=== PATIENT | female | born 1930 | race Caucasian/White ===

== ENCOUNTER 2017-02-11 07:33 | Inpatient (IN) | payer MEDICARE, BC ==
[~2017-02-11] VITALS: Ht 160 cm; Wt 62.4 kg
[~2017-02-11 07:33] MED LIST: ASPI81 PO; CIPR500T2 PO; ENAL20TA81 PO; ENOX30P SQ; LEVO.075 PO; PERC5TAB12 PO; PREG100 PO; REST15CA PO; TOPI25CA PO; TRAM50TA PO; VENTAER INH
[2017-02-11 07:42] VITALS: BP 109/58; PULSE 80; RESP 16; TEMP 98.6
[2017-02-11 07:57] VITALS: RESP 16; O2SAT 94
[2017-02-11] MEDS ORDERED: MORPHINE SULFATE 4 MG/ML INJ IV PUSH ONE (08:00)
[2017-02-11] MEDS: SODIUM CHLORIDE 0.9% FLUSH 10 ML FLUSH IVF PRN (08:08)
[2017-02-11 08:15] LABS: AUTOMATED NEUTROPHIL # 7.5 TH/MM3 (1.8-7.7); BASOPHIL # 0.1 TH/MM3 (0-0.2); BASOPHIL % 0.6 % (0.0-2.0); EOSINOPHIL # 0.3 TH/MM3 (0-0.4); EOSINOPHIL % 3.7 % (0.0-4.0); HEMATOCRIT 35.2 % (35.0-46.0); LYMPH % 11.3 % (9.0-44.0); LYMPHOCYTE # 1.1 TH/MM3 (1.0-4.8); MEAN CELL VOLUME 93.3 FL (80.0-100.0); MEAN CORPUSCULAR HGB CONC 34.3 % (32.0-36.0); MONO % 5.6 % (0.0-8.0); NEUT % 78.8 % (16.0-70.0); PLATELET COUNT 229 TH/MM3 (150-450); RED BLOOD COUNT 3.77 MIL/MM3 (4.00-5.30); RED CELL DISTRIBUTION WIDTH 17.7 % (11.6-17.2); WHITE BLOOD COUNT 9.5 TH/MM3 (4.0-11.0)
[2017-02-11 08:18] LABS: HEMO FLAGS AUTO DIFF
[2017-02-11 08:23] LABS: ANION GAP 7 MEQ/L (5-15); AST (GOT) 21 U/L (15-37); BLOOD UREA NITROGEN 14 MG/DL (7-18); CHLORIDE 101 MEQ/L (98-107); GLOMERULAR FILTRATION RATE 62 ML/MIN (>89); SODIUM (NA) 135 MEQ/L (136-145)
[2017-02-11 08:25] LABS: PROTHROMBIN TIME - PATIENT 11.3 SEC (9.8-11.6)
[2017-02-11 08:26] LABS: ALKALINE PHOSPHATASE 83 U/L (45-117); ALT (GPT) 24 U/L (10-53); TOTAL BILIRUBIN ADULT 0.3 MG/DL (0.2-1.0)
[2017-02-11 09:05] LABS: BANDS 26 % (0-6); EOSINOPHILS 3 % (0-4); NEUTROPHIL # MANUAL DIFF 8.3 TH/MM3 (1.8-7.7); PLATELET ESTIMATE SMEAR NORMAL (NORMAL); PLATELET MORPHOLOGY NORMAL (NORMAL); POLYS (SEG NEUTROPHILS) 61 % (16-70); SCAN/DIFF FINAL DIFF MANUAL; WBC DIFF SAMPLE 100
[2017-02-11 09:12] VITALS: BP 105/50; PULSE 79; RESP 16; O2SAT 94
--- NOTE | 2017-02-11 09:20 | RADRPT ---
EXAM DATE/TIME: 02/11/2017 09:01 [facility] COMPARISON: CT THORAX W CONTRAST, November 14, 2013, 16:17. CHEST PA & LAT, November 14, 2013, 13:29. INDICATIONS : Shortness of breath. MEDICAL HISTORY : Chronic obstructive pulmonary disease. Hypertension Asthma SURGICAL HISTORY : None. ENCOUNTER: Initial ACUITY: 1 day PAIN SCORE: 0/10 LOCATION: Bilateral chest FINDINGS: Single AP view of the chest demonstrates a normal-sized cardiac silhouette with calcification of the aorta. There are coarse interstitial opacities bilaterally. No definite effusion, consolidation, or p neumothorax is visualized. Bones and soft tissues demonstrate no acute finding. CONCLUSION: Coarse interstitial opacities bilaterally, increased from the prior study from 2013 but otherwise of uncertain etiology. Otherwise, no acute finding is identified. If symptoms persist consider of chest CT for further evaluation. Champ Junior MD on February 11, 2017 at 9:15 Board Certified Radiologist. This report was verified electronically.
--- NOTE | 2017-02-11 09:28 | RADRPT ---
EXAM DATE/TIME: 02/11/2017 08:53 [facility] COMPARISON: No previous studies available for comparison. INDICATIONS : Right femur pain, fall. MEDICAL HISTORY : Arthritis. SURGICAL HISTORY : None. ENCOUNTER: Initial ACUITY: 1 day PAIN SCORE: 10/10 LOCATION: Right proximal femur FINDINGS: AP and crosstable lateral views of the right femur were obtained and demonstrate a mildly comminuted intertrochanteric fracture with mild medial angulation of the distal femoral component. Lesser tubero sity is fractured displaced approximately 1 cm. There are degenerative changes in the right hip joint with superior joint space loss and mild hypertrophic change. The mid and distal femur are intact. So ft tissue swelling of the proximal femur. There is deformity of the left superior pubic rami with are as of sclerosis which appear chronic. There is diffuse osteopenia. CONCLUSION: 1. Right intertrochanteric fracture. 2. More chronic appearing deformity of the superior pubic rami. Willard Matamoros MD on February 11, 2017 at 9:24 Board Certified Radiologist. This report was verified electronically.
--- NOTE | 2017-02-11 09:30 | RADRPT ---
EXAM DATE/TIME: 02/11/2017 08:51 [facility] COMPARISON: No previous studies available for comparison. INDICATIONS : Right hip pain, fall. MEDICAL HISTORY : Arthritis. Pelvic fracture SURGICAL HISTORY : SI screws, ORIF pelvis ENCOUNTER: Initial ACUITY: 1 day PAIN SCORE: 10/10 LOCATION: Right proximal hip FINDINGS: AP and crosstable lateral views of the right hip were obtained as well as an AP view the pelvis. demo nstrating mildly comminuted intertrochanteric fracture. The distal femoral component is angulated med ially and the lesser trochanteric fragment is displaced medially approximately 1 cm. There is diffuse osteopenia and there are degenerative changes in the right hip. There are chronic fracture deformiti es involving superior pubic rami bilaterally. There are remote postsurgical changes with surgical scr ew transversing the left sacroiliac joint. There is screw plate fixation devices along the upper left ilium. CONCLUSION: 1. Mildly comminuted right intertrochanteric fracture. 2. Old fracture deformities of the pubic rami. Willard Matamoros MD on February 11, 2017 at 9:26 Board Certified Radiologist. This report was verified electronically.
--- NOTE | 2017-02-11 09:48 | PD ---
HPI Chief Complaint: Hip Injury Time Seen by Provider: 07:39 Travel History International Travel<30 days: No Contact w/Intl Traveler<30days: No Traveled to known affect area: No History of Present Illness HPI Is an 86-year-old woman who presents to the emergency department complaining of pain in the right hip after slip and fall. She slipped on an area rug. She otherwise has been feeling well. She is a history of previous pelvic fractures of the lateral laceration after she fell in 2013 down the stairs. She had a complex pelvic fractures sounds like an open book fracture. She also recent pneumonia and was discharged from the hospital 3 weeks ago. She otherwise had been feeling generally well before this. She has no pain anywhere else. Denies hitting her head. She is not on blood thinners. History Past Medical History Narrative Medical Asthma/COPD Hypertension A. fib Hypothyroidism History of pelvic fracture or bladder laceration 2013 LMP: post menopausal Menopausal: Yes Social History Alcohol Use: Yes (RED WINE 4 OZ every other day) Tobacco Use: No Allergies-Medications (Allergen,Severity, Reaction): Coded Allergies: Adhesives (Verified Allergy, Severe, skin irritation, 06/22/14) Phenobarbital (Verified Allergy, Severe, VOMITING, 06/22/14) Codeine (Verified Allergy, Intermediate, Nausea/Vomiting, 06/22/14) Uncoded Allergies: SOME NARCOTICS (Allergy, Unknown, 07/04/08) Reported Meds & Prescriptions Reported Meds & Active Scripts Active Percocet 5-325 mg (Oxycodone/Acetaminophen) Oxycodone 5/325 Acetaminophen Tab 1 Tab PO Q4H PRN Ciprofloxacin HCl (Ciprofloxacin) 500 Mg Tab 500 Mg PO Q12 7 Days Reported Lovenox (Enoxaparin Sodium) 30 Mg/0.3 Ml Inj 30 Mg SQ BID UNGRADUATED PREFILLED SYRINGE Aspirin 81 Mg Tab 81 Mg PO DAILY Topiramate 25 Mg Cap 25 Mg PO BID Ventolin Hfa (Albuterol Sulfate) 18 Gm Aero 2 Puff INH Q4HPRN * SHAKE WELL BEFORE USE * Tramadol Hcl (Tramadol HCl) 50 Mg Tab 100 Mg PO TIDPRN Lyrica (Pregabalin) 100 Mg Cap 75 Mg PO TID Restoril (Temazepam) 15 Mg Cap 15 Mg PO HS Vasotec (Enalapril Maleate) 20 Mg Tab 20 Mg PO BID Synthroid (Levothyroxine Sodium) 75 Mcg Tab 75 Mcg PO DAILY Review of Systems Except as stated in HPI: all other systems reviewed are Neg Physical Exam Narrative GENERAL: Well-appearing 86-year-old woman, no acute distress. SKIN: Focused skin assessment warm/dry. HEAD: Atraumatic. Normocephalic. EYES: Pupils equal and round. No scleral icterus. No injection or drainage. ENT: No nasal bleeding or discharge. Mucous membranes pink and moist. NECK: Trachea midline. No JVD. CARDIOVASCULAR: Regular rate and rhythm. No murmur appreciated. RESPIRATORY: No accessory muscle use. Clear to auscultation. Breath sounds equal bilaterally. GASTROINTESTINAL: Abdomen soft, non-tender, nondistended. Hepatic and splenic margins not palpable. MUSCULOSKELETAL: No obvious deformities. She holds her right hip a little bit externally rotated. She has pain with any attempt at range of motion of the hip including internal/external rotation. She has no pain or tenderness about the knee. She is no pain about the thigh. She is good pulses. No other evidence of injury. NEUROLOGICAL: Awake and alert. No obvious cranial nerve deficits. Motor grossly within normal limits. Normal speech. PSYCHIATRIC: Appropriate mood and affect; insight and judgment normal. Data Data Last Documented VS Vital Signs Date Time Temp Pulse Resp B/P Pulse Ox O2 Delivery O2 Flow Rate FiO2 02/11/17 09:12 79 16 105/50 94 02/11/17 07:51 Room Air 02/11/17 07:42 98.6 Orders Electrocardiogram (02/11/17 07:49) Complete Blood Count With Diff (02/11/17 07:49) Comprehensive Metabolic Panel (02/11/17 07:49) Prothrombin Time / Inr (Pt) (02/11/17 07:49) Act Partial Throm Time (Ptt) (02/11/17 07:49) Urinalysis - C+S If Indicated (02/11/17 07:49) Type And Screen (02/11/17 07:49) Chest, Single Ap (02/11/17 07:49) Femur (Ap & Lat/2vws) (02/11/17 07:49) Hip, Uni(Ap&Lat) W Ap Pelvis (02/11/17 07:49) Iv Access Insert/Monitor (02/11/17 07:49) Urinary Catheter Insert/Apply (02/11/17 07:49) Oximetry (02/11/17 07:49) Ecg Monitoring (02/11/17 07:49) Morphine Inj (Morphine Inj) (02/11/17 08:00) Sodium Chloride 0.9% Flush (Ns Flush) (02/11/17 08:00) Diet Npo (02/11/17 Breakfast) Admit Order (Ed Use Only) (02/11/17 ) Labs Laboratory Tests Test 02/11/17 07:57 White Blood Count 9.5 TH/MM3 Red Blood Count 3.77 MIL/MM3 Hemoglobin 12.1 GM/DL Hematocrit 35.2 % Mean Corpuscular Volume 93.3 FL Mean Corpuscular Hemoglobin 32.0 PG Mean Corpuscular Hemoglobin 34.3 % Concent Red Cell Distribution Width 17.7 % Platelet Count 229 TH/MM3 Mean Platelet Volume 7.7 FL Neutrophils (%) (Auto) 78.8 % Lymphocytes (%) (Auto) 11.3 % Monocytes (%) (Auto) 5.6 % Eosinophils (%) (Auto) 3.7 % Basophils (%) (Auto) 0.6 % Neutrophils # (Auto) 7.5 TH/MM3 Lymphocytes # (Auto) 1.1 TH/MM3 Monocytes # (Auto) 0.5 TH/MM3 Eosinophils # (Auto) 0.3 TH/MM3 Basophils # (Auto) 0.1 TH/MM3 CBC Comment AUTO DIFF Differential Total Cells 100 Counted Neutrophils % (Manual) 61 % Band Neutrophils % 26 % Lymphocytes % 8 % Monocytes % 2 % Eosinophils % 3 % Neutrophils # (Manual) 8.3 TH/MM3 Differential Comment FINAL DIFF MANUAL Platelet Estimate NORMAL Platelet Morphology Comment NORMAL Prothrombin Time 11.3 SEC Prothromb Time International 1.0 RATIO Ratio Activated Partial 28.0 SEC Thromboplast Time Sodium Level 135 MEQ/L Potassium Level 4.0 MEQ/L Chloride Level 101 MEQ/L Carbon Dioxide Level 27.0 MEQ/L Anion Gap 7 MEQ/L Blood Urea Nitrogen 14 MG/DL Creatinine 0.87 MG/DL Estimat Glomerular Filtration 62 ML/MIN Rate Random Glucose 118 MG/DL Calcium Level 7.8 MG/DL Total Bilirubin 0.3 MG/DL Aspartate Amino Transf 21 U/L (AST/SGOT) Alanine Aminotransferase 24 U/L (ALT/SGPT) Alkaline Phosphatase 83 U/L Total Protein 5.6 GM/DL Albumin 2.7 GM/DL Blood Type A NEGATIVE Antibody Screen NEGATIVE MDM Medical Decision Making Medical Screen Exam Complete: Yes Emergency Medical Condition: Yes Interpretation(s) LABS: CBC remarkable for bandemia. CMP is unremarkable. Coags are unremarkable. Chest x-ray: Coarse interstitial opacities bilaterally. Increased from prior study but of uncertain etiology. Differential Diagnosis Hip fracture, femur fracture, pelvic fracture, occult head injury, other Narrative Course Medical decision making This an 86 old woman who presents to the emergency department complaint of right hip pain after fall. X-ray show approximately femur fracture. She looks otherwise well. I spoke with Dr. Swan, with orthopedics. We'll plan or later today. We will admit to medicine. Diagnosis Primary Impression: Closed right hip fracture Iker Gómez MD Feb 11, 2017 09:48
[2017-02-11] MEDS ORDERED: LACTATED RINGER'S 1000 ML INJ 1,000 ML IV ONE (09:50)
[2017-02-11] MEDS ORDERED: ONDANSETRON HCL 4 MG/2 ML VIAL IV PUSH ONE (09:50)
[2017-02-11] MEDS ORDERED: PROPOFOL 200 MG/20 ML AMP IV ONE (09:50)
[2017-02-11] MEDS ORDERED: PHENYLEPH/NS 1000 MCG/10 ML SYR IV ONE (09:50)
[2017-02-11 10:52] LABS: BACTERIA, URINE OCC /hpf; BLOOD, URINE NEG (NEG); COMMENT (UR) CATH-CULTURE IND; CULTURE IF INDICATED CATH CULTURE IND; GLUCOSE,URINE NEG (NEG); KETONE, URINE NEG (NEG); NITRITE,URINE POS (NEG); PH, URINE 7.5 (5.0-8.5); URINE COLOR YELLOW (YELLW/STRAW)
[2017-02-11] MEDS ORDERED: TOPA25TA8 PO (10:59)
[2017-02-11] MEDS ORDERED: tam (10:59)
[2017-02-11] MEDS ORDERED: TRAM50TA PO (10:59)
[2017-02-11] MEDS ORDERED: TEMA15CA PO (10:59)
[2017-02-11] MEDS ORDERED: PREG25 PO (10:59)
[2017-02-11] MEDS ORDERED: ENAL2.5T PO (10:59)
[2017-02-11] MEDS ORDERED: MONT4CHW4 CHEW (10:59)
[2017-02-11] MEDS ORDERED: MONT4CHW2 PO (10:59)
[2017-02-11] MEDS ORDERED: ALBUAER3 INH (10:59)
[2017-02-11] MEDS ORDERED: ADVI200C5 PO (11:00)
[2017-02-11] MEDS ORDERED: SODITAB PO (11:00)
[2017-02-11 11:17] VITALS: BP 101/58; PULSE 78; O2SAT 96
[2017-02-11] MEDS ORDERED: ALBUTEROL SULFATE 90 MCG/ACT HFA 18 GM INHALER INH PRN (11:45)
[2017-02-11] MEDS ORDERED: DEXT 5%-NACL 0.45% 1000 ML INJ 1,000 ML IV SCH (11:45)
[2017-02-11] MEDS ORDERED: MORPHINE SULFATE 4 MG/ML INJ IV PUSH PRN ×2 (11:45→19:45)
[2017-02-11] MEDS ORDERED: ONDANSETRON HCL 4 MG/2 ML VIAL IV PUSH PRN (11:45)
[2017-02-11] MEDS: cefTRIAXone INJ 1,000 MG in SODIUM CHLORIDE 0.9% INJ 100 ML IV SCH (12:56)
--- NOTE | 2017-02-11 13:25 | EKG ---
Date Performed: 02/11/2017 Time Performed: 07:52:34 PTAGE: 86 years EKG: Sinus rhythm POSSIBLE LEFT ATRIAL ENLARGEMENT INFERIOR MYOCARDIAL INFARCTION ABNORMAL ECG PREVIOUS TRACING : 06/22/2014 21.03 No significant change from previous tracing noted. DOCTOR: Shemar Flores Interpretating Date/Time 02/11/2017 13:22:33
[2017-02-11 15:20] VITALS: BP 124/65; PULSE 81; RESP 16; O2SAT 96
--- NOTE | 2017-02-11 18:15 | HHI.PR ---
Objective Objective Results - Vital Signs Date Time Temp Pulse Resp B/P Pulse Ox O2 Delivery O2 Flow Rate FiO2 02/11/17 15:20 81 16 124/65 96 Room Air 02/11/17 11:30 80 16 92 Nasal Cannula 2 02/11/17 11:17 78 101/58 96 Room Air 02/11/17 09:12 79 16 105/50 94 02/11/17 09:11 16 02/11/17 07:57 16 94 02/11/17 07:51 80 94 Room Air 02/11/17 07:42 98.6 80 16 109/58 I/O 02/10/17 02/10/17 02/10/17 02/11/17 02/11/17 02/11/17 07:00 15:00 23:00 07:00 15:00 23:00 Intake Total 200 ml Output Total 700 ml Balance -500 ml Intake IV Total 200 ml Output Urine Total 700 ml Result Diagram: 02/11/17 0757 02/11/17 0757 Other Results Laboratory Tests Test 02/11/17 02/11/17 07:57 10:15 White Blood Count 9.5 Red Blood Count 3.77 Hemoglobin 12.1 Hematocrit 35.2 Mean Corpuscular Volume 93.3 Mean Corpuscular Hemoglobin 32.0 Mean Corpuscular Hemoglobin 34.3 Concent Red Cell Distribution Width 17.7 Platelet Count 229 Mean Platelet Volume 7.7 Neutrophils (%) (Auto) 78.8 Lymphocytes (%) (Auto) 11.3 Monocytes (%) (Auto) 5.6 Eosinophils (%) (Auto) 3.7 Basophils (%) (Auto) 0.6 Neutrophils # (Auto) 7.5 Lymphocytes # (Auto) 1.1 Monocytes # (Auto) 0.5 Eosinophils # (Auto) 0.3 Basophils # (Auto) 0.1 CBC Comment AUTO DIFF Differential Total Cells 100 Counted Neutrophils % (Manual) 61 Band Neutrophils % 26 Lymphocytes % 8 Monocytes % 2 Eosinophils % 3 Neutrophils # (Manual) 8.3 Differential Comment FINAL DIFF MANUAL Platelet Estimate NORMAL Platelet Morphology Comment NORMAL Prothrombin Time 11.3 Prothromb Time International 1.0 Ratio Activated Partial 28.0 Thromboplast Time Sodium Level 135 Potassium Level 4.0 Chloride Level 101 Carbon Dioxide Level 27.0 Anion Gap 7 Blood Urea Nitrogen 14 Creatinine 0.87 Estimat Glomerular Filtration 62 Rate Random Glucose 118 Calcium Level 7.8 Total Bilirubin 0.3 Aspartate Amino Transf 21 (AST/SGOT) Alanine Aminotransferase 24 (ALT/SGPT) Alkaline Phosphatase 83 Total Protein 5.6 Albumin 2.7 Blood Type A NEGATIVE Antibody Screen NEGATIVE Urine Color YELLOW Urine Turbidity HAZY Urine pH 7.5 Urine Specific [place] 1.012 Urine Protein TRACE Urine Glucose (UA) NEG Urine Ketones NEG Urine Occult Blood NEG Urine Nitrite POS Urine Bilirubin NEG Urine Urobilinogen LESS THAN 2.0 Urine Leukocyte Esterase LARGE Urine RBC 2 Urine WBC 49 Urine Amorphous Sediment RARE Urine Bacteria OCC Microscopic Urinalysis Comment CATH-CULTURE IND Date/Time Procedure Status Source Growth 02/11/17 10:15 Urine Culture Received Urine Catheterized Urine Pending Physical Exam Physical Exam pt is seen & examined d/w wayne see orders see H&P ortho consult for hip fracture will f/u Bonnie Wellington MD Feb 11, 2017 18:15
[2017-02-11] MEDS ORDERED: VANCOMYCIN HCL 1000 MG VIAL ONE (18:46)
[2017-02-11] MEDS ORDERED: ceFAZolin INJ 1,000 MG VIAL ONE (18:46)
[2017-02-11] MEDS: TRANEXAMIC ACID INJ 1,000 MG/10 ML AMP ONE ×2 (18:57→19:05)
[2017-02-11] MEDS ORDERED: Post-op Orders (for Pharmacy) MISC XX ONE (19:45)
[2017-02-11] MEDS ORDERED: MISCELLANEOUS NURSING INFORMATION XX PRN (19:45)
[2017-02-11] MEDS ORDERED: MISCELLANEOUS PHARMACY INFORMATION XX ONE (19:45)
[2017-02-11] MEDS ORDERED: MAGNESIUM HYDROXIDE SUSP 30 ML CUP PO PRN (19:45)
[2017-02-11] MEDS ORDERED: ACETAMINOPHEN/HYDROcodone 325 MG/5 MG TAB PO PRN (19:45)
[2017-02-11] MEDS ORDERED: NALOXONE HCL 0.4 MG/ML AMP IV PRN (19:45)
[2017-02-11] MEDS ORDERED: diphenhydrAMINE HCL 25 MG CAP PO PRN (19:45)
[2017-02-11] MEDS ORDERED: SODIUM CHLORIDE 0.9% FLUSH 5 ML FLUSH IVF PRN (19:45)
[2017-02-11] MEDS ORDERED: ONDANSETRON HCL 4 MG/2 ML VIAL IVP PRN (19:45)
--- NOTE | 2017-02-11 19:52 | PD.OP ---
cc: Frantz Swan MD Operative Report Date of Surgery: Feb 11, 2017 Preoperative Diagnosis: Right hip intertrochanteric and subtrochanteric femur fracture. Postoperative Diagnosis: Same Procedure: Right hip treatment of intertrochanteric/subtrochanteric femur fracture with intramedullary nail Anesthesia: Gen. Surgeon: Frantz Swan Administrative Dietitian(s): ALINA Amaya The surgical procedure was assisted by my Advanced Registered Nurse Practitioner. My PINSETTER MECHANIC HELPER presence was necessary throughout this case for the manipulation and positioning of the surgical extremity. My PINSETTER MECHANIC HELPER was assisting me throughout the duration of this procedure. The skill set of an Advance Registered Nurse Practitioner was medically necessary to complete this procedure. During the surgical case, the surgical garment fitter was working at the back table and the Advance Registered Nurse Practitioner was directly assisting me. Operation and Findings: I met this patient in the holding area outside of the operative theater. The patient's daughter was at the bedside. We discussed the diagnosis in detail. We discussed treatment options including operative and nonoperative options. We discussed the risks and benefits of surgical management. They understand that the risks of surgery included but not limited to injury to nerves, blood vessels, bleeding, infection, inability to ambulate, N discrepancy, blood clots , pulmonary embolus, pneumonia, stroke, and . Estimated blood loss: 200 cc Implants: Synthes intermediate trochanteric nail, size: 10, 130 The patient received intravenous vancomycin and Ancef. After the appropriate anesthesia was administered, and the patient was transferred to the fracture table. The fracture was fairly well reduced but continued to show external rotation proximally. The hip was prepped and draped in usual sterile fashion. We made incision just proximal to the tip of the greater trochanter. We dissected down through the deep fascia. We made an incision lateral to the greater trochanter. We placed a Tony to elevate the proximal femur which was externally rotated. This reduced the femur very nicely into position. We used a threaded guidewire at the tip of the greater trochanter which was placed down to the metaphyseal region on both the AP and lateral views. We reamed proximally. Using fluoroscopic analysis we templated the appropriate size for the intermediate nail. This nail was then placed into position under fluoroscopic guidance. The smallest diameter was a size 10 nail. We were unable to advance this all the way down. We remove the nail and placed a ball-tipped guidewire down the femoral shaft. We sequentially reamed up to a size 11. We then placed the nail back into position which fit much better now. We made incision laterally based on the position of the associated jig. We then placed a threaded guidewire into the center, center of the femoral head. The appropriate length for the helical blade was measured. We drilled laterally and then step reamed the femoral neck and femoral head region. The helical blade was placed into position. We then tightened the proximal set screw which was left in a tightened position since there was a subtrochanteric component to the fracture. The nail was secured distally with a single screw off of the jig using fluoroscopic guidance. We took final fluoroscopic imaging which revealed that the fracture was in very good position. The hardware was in good position as well. The wounds were thoroughly irrigated and then closed with a 0 Vicryl followed by 2-0 Vicryl and parminder. The postoperative plan is to start toe-touch weightbearing. Additionally, we will initiate postoperative antibiotics for 24 hours along with DVT prophylaxis consisting of early mobilization, SCDs, compression stockings, and Lovenox followed by aspirin. Frantz Swan MD Feb 11, 2017 19:52
[2017-02-11] MEDS ORDERED: ASPI325T PO (19:54)
[2017-02-11] MEDS ORDERED: ENOX40P SQ (19:54)
[2017-02-11] MEDS ORDERED: NORC5TAB PO (19:54)
--- NOTE | 2017-02-11 19:57 | RADRPT ---
EXAM DATE/TIME: 02/11/2017 19:38 [facility] COMPARISON: No previous studies available for comparison. INDICATIONS : ORIF right hip. MEDICAL HISTORY : Arthritis. Pelvic fracture SURGICAL HISTORY : SI screws, ORIF pelvis ENCOUNTER: Subsequent ACUITY: 1 day PAIN SCORE: Non-responsive. LOCATION: Right pelvis CONCLUSION: Fluoroscopic images during placement of intramedullary marie/compression screw in right hip and proxima l femur. Benny Banerjee MD on February 11, 2017 at 19:55 Board Certified Radiologist. This report was verified electronically.
[2017-02-11] MEDS ORDERED: DO NOT ADM ANY ANTICOAGULANT DRUGS PRN (20:14)
[2017-02-11] MEDS ORDERED: *morphine SULFATE 8 MG/ML PERIprocedure ONLY ONE (20:25)
[2017-02-11] MEDS ORDERED: diphenhydrAMINE HCL 50 MG/ML VIAL ONE (20:41)
[2017-02-11] MEDS ORDERED: *MEPERIDINE 25 MG INJ VIAL PERIprocedural Use ONLY ONE (20:41)
[2017-02-11] MEDS ORDERED: fentaNYL CITRATE 250 MCG/5 ML AMP ONE (20:46)
[2017-02-11] MEDS ORDERED: TRANEXAMIC ACID INJ 600 MG in SODIUM CHLORIDE 0.9% INJ 100 ML IV ONE (21:00)
[2017-02-11] MEDS: SODIUM CHLORIDE 0.9% FLUSH 5 ML FLUSH IVF SCH (21:00)
[2017-02-11] MEDS: DEXT 5%-NACL 0.45% 1000 ML INJ 1,000 ML IV SCH (21:00)
[2017-02-11] MEDS: MONTELUKAST SODIUM 10 MG TAB PO SCH (23:35)
[2017-02-11] MEDS: FAMOTIDINE 20 MG TAB PO SCH (23:35)
[2017-02-11] MEDS: DOCUSATE SODIUM 50 MG/SENNA 8.6 MG TAB PO SCH (23:35)
[2017-02-11] MEDS: PREGABALIN 25 MG CAP PO SCH (23:45)
[2017-02-12] VITALS (8 sets, daily range): BP systolic 95–121; BP diastolic 53–68; PULSE 71–98; RESP 16–19; TEMP 95.8–97.9; O2SAT 94–98
[2017-02-12] MEDS: DEXT 5%-NACL 0.45% 1000 ML INJ 1,000 ML IV SCH ×2 (05:56→15:45)
[2017-02-12] MEDS: ACETAMINOPHEN/HYDROcodone 325 MG/5 MG TAB PO PRN ×3 (06:15→18:48)
[2017-02-12 06:55] LABS: HEMATOCRIT 30.3 % (35.0-46.0); MEAN CELL VOLUME 94.5 FL (80.0-100.0); MEAN CORPUSCULAR HEMOGLOBIN 31.3 PG (27.0-34.0); MEAN CORPUSCULAR HGB CONC 33.1 % (32.0-36.0); PLATELET COUNT 198 TH/MM3 (150-450); RED BLOOD COUNT 3.21 MIL/MM3 (4.00-5.30); RED CELL DISTRIBUTION WIDTH 17.6 % (11.6-17.2); REVIEW FLAG FINAL; WHITE BLOOD COUNT 7.6 TH/MM3 (4.0-11.0)
[2017-02-12 07:19] LABS: BICARBONATE 22.7 MEQ/L (21.0-32.0); POTASSIUM 4.2 MEQ/L (3.5-5.1)
[2017-02-12] MEDS: SODIUM CHLORIDE 0.9% FLUSH 5 ML FLUSH IVF SCH ×2 (08:29→19:50)
[2017-02-12] MEDS: DOCUSATE SODIUM 50 MG/SENNA 8.6 MG TAB PO SCH ×2 (08:29→19:49)
[2017-02-12] MEDS: PREGABALIN 25 MG CAP PO SCH ×3 (08:29→19:50)
[2017-02-12] MEDS: MULTIVITAMINS/MINERALS THERAPEUTIC TAB PO SCH (08:29)
[2017-02-12] MEDS: FAMOTIDINE 20 MG TAB PO SCH ×2 (08:29→19:49)
--- NOTE | 2017-02-12 09:13 | MH ---
cc: CONNIE WELLINGTON MD DATE OF ADMISSION: 02/11/2017 DATE OF : 1930, 86 years old. CHIEF COMPLAINT Right hip injury, fall. RECENT TRAVEL: Travel in the last 30 days none. HISTORY OF PRESENT ILLNESS: This is a pleasant 86 year old independent white female who got up around midnight to go to the bathroom, she slipped on a throw rug that was close to her bed and laid on the floor for an unspecified length of time. She states that she did not think that she hit her head. The patient denies any chest pain, no shortness of breath, no cough. No headache. According to the record and the patient, she was recently discharged from the hospital three weeks ago with pneumonia. She has still taken outpatient respiratory treatments but other than that no fever, no cough, no further antibiotic usage. Patient does state that she gets strangled easily on liquids but up until yesterday she was in her usual state of health. The patient is noted to have a small amount of thrush in the back of her throat. She states that she had been treated for the thrush post the antibiotics that she took for her pneumonia. PAST MEDICAL HISTORY: 1. Asthma. 2. Chronic obstructive pulmonary disease. 3. Cardiovascular disease. 4. Dysrhythmias with atrial fibrillation. 5. Hypertension. 6. Hypothyroidism. 7. History of left and right fractures. 8. Pelvic fracture. 9. Neck fracture. 10. Constipation. 11. Recent pneumonia. PAST SURGICAL HISTORY: 1. Hysterectomy. 2. Fracture repair left and right hip or femur, she is not sure. 3. Neck surgery. ALLERGIES 1. ADHESIVES 2. CODEINE 3. PHENOBARBITAL 4. SOME NARCOTICS. REPORTED MEDICATIONS According to the record; 1. Lovenox 2. Aspirin. 3. Topiramate. 4. Ventolin 5. Tramadol 6. Lyrica 7. Restoril 8. Vasotec 9. Synthroid SOCIAL HISTORY: The patient lives alone. Her daughter is here at her side. The patient denies any tobacco, no illicit drugs but takes usually about four ounces or red wine in the evenings. REVIEW OF SYSTEMS A 12 point review of systems is done. Positives were noted in the history of present illness which are recent pneumonia. Oral thrush. Constipation, mild. Recent fall last p.m. with right hip fracture. Other systems are negative or unremarkable. Please note the patient had a bowel movement yesterday which was normal. PHYSICAL EXAMINATION: VITAL SIGNS: Temperature is 98.6. Pulse 81, respirations 16, blood pressure 124/65. O2 saturation 96% on room air. The patient is on two liters nasal cannula off and on. GENERAL: Well-nourished but frail, white female appears to be her stated age resting on the bed, she is alert, oriented and cooperative. HEAD, EARS, EYES, NOSE, AND THROAT Atraumatic, normocephalic, Pupils equal, round, reactive to light and accommodation, moist mucous membranes. Noted white patches in the back of her throat with recent treatment of thrush. NECK: The neck is thin, supple. CARDIOVASCULAR SYSTEM: S1, S2. Regular rate and rhythm. No audible murmur, rub or gallop. She has no edema and her pulses are intact. RESPIRATORY: Essentially clear, anteriorly and posteriorly with no wheezing, rales or rhonchi. GASTROINTESTINAL/ABDOMEN: Flat, soft, nontender, nondistended with active bowel sounds. MUSCULOSKELETAL: She moves her extremities with purpose with some guarding to her right hip. She can wiggle her toes. She is guarded against that right hip and has extreme pain with any type of movement. NEUROLOGICALLY: Alert and oriented, good historian, speech is clear. PSYCHIATRIC: Appropriate mood and affect. Judgment appears normal. DIAGNOSTIC DATA: White blood count 9.5, Red blood cells 3.77, hemoglobin 12.1, hematocrit 35.2. Platelet count 229. Neutrophil count 78.8. PT/INR 1. Chemistries; sodium 135, potassium 4. Chloride 101, carbon dioxide 27, Amnion gap 7. Blood urea nitrogen 14, creatinine 0.87. Glomerular filtration rate 62. Random glucose 118. Calcium 7.8. Albumin 2.7. Urine is yellow, hazy, pH 7.5, specific gravity 1.012, trace of protein negative for glucose, ketones, occult blood. Bilirubin positive for nitrates and large amount of leukocytes Estrace. Culture will be pending. IMAGING STUDIES: Show chest x-ray; course interstitial opacities bilateral. Consider chest CT for further evaluation. Femur x-ray, right intratrochanteric fracture, more chronic appearing deformity of the superior pubic rami. Hip/Pelvis x-ray, mildly communicated right intratrochanteric fracture, old fracture deformities of the pubic rami. ASSESSMENT AND PLAN: 1. Closed right hip fracture. 2. Urinary tract infection. 3. History of hypertension. 4. History of recent pneumonia. 5. History of constipation. 6. Thrush. 7. Anemia, mild. 8. Hypernatremia, mild. 9. Hypocalcemia, mild. 10. Moderate protein calorie malnutrition. PLAN: Our plan is to admit, inpatient status. In the emergency room the patient had electrocardiogram monitoring, pulse oximetry with o2, pain management, gentle hydration, patient was maintained NPO, urine culture is pending. Home medications were reconciled. Peptic ulcer disease prophylaxis with Pepcid. The patient was started on Rocephin for her urinary tract infection and had DuoNeb's treatment due to recent history of pneumonia. The patient will have orthopedic consultation for his expert opinion. We will continue with Albuterol and inhalers, oxygen as needed and monitor her labs in the next 24 hours. To my knowledge the patient is full code, full aggressive care and we will follow. DICTATED BY: ALINA Hernandez MD TAMICA Garcias/chelita /3:28 PM /9:08 AM pt is seen & examined d/w wayne phan orders see H&P ortho consult for hip fracture will f/u Connie Wellington MD Feb 11, 2017 18:15 MTDD
--- NOTE | 2017-02-12 09:22 | MB ---
cc: LAUREN REYNOLDS M.D. DATE OF CONSULTATION 02/11/2017 DATE OF 1930 CHIEF COMPLAINT Right hip pain. HISTORY OF THE PRESENT ILLNESS This is an 86-year-old white female who presents to the emergency department with complaints of a fall early in the morning with immediate pain to the right hip. The patient was ambulating from her bathroom to the kitchen when she slipped and fell on a hardwood floor landing on her right hip. The patient describes her pain as sharp and constant. Movement exacerbates her pain. Rest improves her pain. The patient has on previous history of a right hip fracture. The patient does have a history of previous pelvic fractures in 2013 when she fell down a flight of stairs. The patient also tells me that she was recently admitted to a hospital in [place] for pneumonia and was discharged approximately three weeks ago. The patient denies any current shortness of breath or chest pain. The patient has no tingling or numbness in the right lower extremity. The patient denies any loss of consciousness with her fall. The patient denies any blood thinners. The patient denies any other pain complaints aside from the right hip. PAST MEDICAL HISTORY Includes: 1. Asthma. 2. Chronic obstructive pulmonary disease. 3. Hypertension. 4. Atrial fibrillation. 5. Hypothyroidism. PAST SURGICAL HISTORY Includes: 1. Hysterectomy. 2. Neck surgery. 3. Pelvic surgery. 4. Gallbladder surgery. 5. Appendectomy. SOCIAL HISTORY Includes occasional use of wine with no tobacco use or illicit drug use. ALLERGIES ARE TO ADHESIVES, PHENOBARBITAL AND CODEINE. MEDICATIONS Include: 1. Percocet 5 milligrams tablet one tablet by mouth q.4h as needed for pain. 2. Cipro 500 milligrams tablets one tablet by mouth q.12h. 3. Lovenox 30 milligrams subcutaneous twice a day. 4. Aspirin 81 milligrams by mouth daily. 5. Topiramate 25 milligrams by mouth twice a day. 6. Ventolin 18 gram aerosol two puffs inhaled q.4h as needed shortness of breath. 7. Tramadol 50 milligrams tablets, two tablets by mouth three times a day as needed for pain. 8. Lyrica 100 milligrams capsules, the patient takes 75 milligrams by mouth three times a day. 9. Restoril 15 milligrams by mouth at night. 10. Vasotec 20 milligrams by mouth twice a day. 11. Synthroid 75 micrograms by mouth daily. REVIEW OF SYSTEMS All systems are negative times 12 except for what is stated in the history of present illness. PHYSICAL EXAMINATION VITAL SIGNS: Are as follows, pulse is 81, respiratory rate 16, blood pressure 124/65. Pulse oximetry 96% on room air. GENERAL: The patient is well appearing and in mild distress. SKIN: Warm, dry and has no rashes. HEAD: Atraumatic and normocephalic. EYES: Pupils equal, round, reactive to light and accommodation with extraocular movements intact. EARS, NOSE, AND THROAT: Mucous membranes pink and moist. NECK: Trachea is midline. The neck is supple. CARDIOVASCULAR: Regular rate and rhythm. No atrial fibrillation noted. LUNGS: Symmetrical chest wall rise. ABDOMEN: Soft. Nontender. Nondistended. MUSCULOSKELETAL: The patient's bilateral ankles, knees and left hip have good range of motion with no tenderness to palpation. The patient's right hip has tenderness to palpation and movement. There is some mild deformity to the right hip. The patient has good range of motion and no tenderness to palpation about the bilateral hands, wrists, elbows, and shoulders. The patient does have some mild tenderness to palpation midline along the cervical spine but states that this is normal for her. The patient has 1+ pedal pulses bilaterally and 2+ radial pulses bilaterally. The patient's skin is intact about the right hip. The patient has good sensation to light touch about the right foot. NEUROLOGIC: The patient is alert and oriented times three with no obvious cranial nerve deficits. Speech is normal. PSYCHIATRIC: The patient has appropriate mood and affect. LABORATORY DATA Labs taken on 02/11/2017 in the emergency department showed a white blood cell count as 9.5, hemoglobin 12.1, hematocrit 35.2, platelet count 229. Creatinine 0.87, random glucose is 118. INR is 1.0. Urinalysis taken on 02/11/2017 in the emergency department shows the patient is negative for glucose, ketones, blood, bilirubin. The patient has trace protein and is positive for nitrites with large leukocyte esterase. The patient has 49 white blood cells and high bacteria. Culture is indicated. IMAGING X-rays include AP of the pelvis and AP and lateral of the right hip taken on 02/11/2017 show a mildly comminuted right intertrochanteric fracture with old fracture deformities to the pubic rami. There is screw and plate fixation devices along the left ilium and surgical screws traversing the left sacroiliac joint. I have reviewed the above interpretation by the radiologist and agree with this interpretation. X-rays, AP and lateral views of the right femur on 02/11/2017 show a right intertrochanteric fracture with more chronic appearing deformity of the superior pubic rami. I have reviewed these images and agree with the radiologist's interpretation. IMPRESSION 1. Right hip intertrochanteric fracture with mild displacement and angulation. 2. Chronic appearing superior and inferior pubic rami fractures bilaterally with posterior surgical repair of multiple pelvic fractures. MEDICAL DECISION-MAKING This is a complex situation in which the patient does have a history of previous pelvic fractures with a history most recently of pneumonia. I had a lengthy discussion with the patient regarding her current right hip fracture. We discussed the risk of non operative management for this which would place her at risk for being bedridden as well as increased risk for future pneumonias. Non operative management could potentially lead to complications and . We also discussed the option of surgical management for the right hip which also has risks. I discussed the risks of surgery which include but are not limited to the risk for infection, blood clots, pulmonary embolism, heart attack, stroke, failure of hardware, continued pain despite surgery, injury to nerves and vessels, and . After discussing all options with the patient, the patient does want to proceed with surgical management for the right hip. Surgery would include open reduction, internal fixation of the right hip. The patient will likely require a weightbearing status of toe touch weightbearing postoperatively to allow for healing. The patient will also require considerable rehab to help strengthen and improve range of motion and ultimately help with gait training. I have discussed and reviewed the above impression and plan of care with Dr. Reynolds and he agrees with this documentation. Dictated by: ALINA Dorman MD CAESAR Rebolledo/KK /4:15 PM /9:22 AM
--- NOTE | 2017-02-12 11:38 | HHI.PR ---
Subjective Remarks Up in chair Alert, oriented Daughter in room Light Right hip dressing clean dry and intact Afebrile (Sylvia Jaeger) Objective Objective Results - Vital Signs Date Time Temp Pulse Resp B/P Pulse Ox O2 Delivery O2 Flow Rate FiO2 02/12/17 09:24 94 Nasal Cannula 2.00 02/12/17 08:00 95.8 71 18 104/53 98 02/12/17 04:05 97.9 80 18 121/56 96 02/12/17 01:45 96.5 77 18 95/66 97 02/12/17 00:30 77 12 94/55 98 Nasal Cannula 2 02/12/17 00:00 98.3 79 12 105/55 98 Nasal Cannula 2 02/11/17 23:30 82 11 107/52 100 Nasal Cannula 3 02/11/17 23:00 87 17 104/58 99 Nasal Cannula 3 02/11/17 22:30 85 12 100/53 97 Nasal Cannula 3 02/11/17 22:00 99.1 88 17 95/51 97 Nasal Cannula 3 02/11/17 21:30 96 15 90/55 96 Nasal Cannula 3 02/11/17 21:15 98.3 93 11 105/52 98 Nasal Cannula 3 02/11/17 21:00 89 16 107/56 97 Nasal Cannula 3 02/11/17 20:45 92 15 129/56 96 Nasal Cannula 3 02/11/17 20:30 90 19 141/62 96 Nasal Cannula 3 02/11/17 20:15 99.6 89 20 134/58 96 Nasal Cannula 3 02/11/17 15:20 81 16 124/65 96 Room Air I/O 02/11/17 02/11/17 02/11/17 02/12/17 02/12/17 02/12/17 07:00 15:00 23:00 07:00 15:00 23:00 Intake Total 200 ml 1630 ml 440 ml Output Total 700 ml 760 ml 850 ml Balance -500 ml 870 ml -410 ml Intake Oral 230 ml 440 ml IV Total 200 ml 400 ml Other 1000 ml Output Urine Total 700 ml 310 ml 850 ml Estimated Blood Loss 100 ml Other 350 ml # Bowel Movements 0 (Sylvia Jaeger) Result Diagram: 02/12/17 0611 02/12/17 0611 ROS General: Weakness (right hip and right leg), Other (10 point ROS done positives noted otherwise systems negative or unremarkable) Cardiac: Edema (mild right upper leg and hip) GI: BM (none yet) Skin: Other (incision right hip clean dry and intact) (Sylvia Jaeger) Physical Exam Physical Exam PHYSICAL EXAMINATION GENERAL: This is a thin well-nourished female who appears to be in no acute distress. She is alert and awake, HEAD: Normocephalic without any lesion or mass noted. Facial features appear symmetric. OROPHARYNGEAL: Oropharynx without erythema or edema. NECK: Supple. No nuchal rigidity or lymphadenopathy. Trachea midline without deviation. CARDIAC: Regular rhythm, regular rate, S1 and S2 are heard. Murmur soft LUNGS: Clear to auscultation bilaterally. ABDOMEN: Soft, nontender, no organomegaly or masses. Bowel sounds are heard in all four quadrants. No BM yet EXTREMITIES: No edema. Pulses equal bilateral. NEUROLOGICAL: Patient mood and affect appropriate. No focal deficit SKIN:Warm and moist Objective Remarks I feel okay this morning (Sylvia Jaeger) A/P Assessment and Plan 1. Closed right hip fracture. S/ P right hip arthroplasty. Postop care and pain management per ortho, patient is up in chair this morning. Pain is controlled 2. Urinary tract infection. Urine culture pending 3. History of hypertension. Stable BP 4. History of recent pneumonia. No cough no rhonchi, monitor for any pulmonary changes 6. Thrush. Medical management 7. Anemia, mild. Monitor, Hgb 10 this morning 8. Hypernatremia, mild. Unchanged, monitor 9. Hypocalcemia, Resolved 10. Moderate protein calorie malnutrition. Patient eats good healthy diet she and her daughter state, with adequate calories. Encouraged to patient to eat more protein DVT prophylaxis PUD prophylaxis Discharge planning for rehabilitation soon Discussed With: Nurse, Family (patient and daughter), Other (Dr. Wellington, patient seen on his behalf) (Sylvia Jaeger) Assessment and Plan PT is seen & examined d/w PT d/w sylvia Graham w above cont current tx SS for d/c planning will f/u (Bonnie Wellington MD) Sylvia Jaeger Feb 12, 2017 11:38 Bonnie Wellington MD Feb 12, 2017 17:34
[2017-02-12] MEDS: cefTRIAXone INJ 1,000 MG in SODIUM CHLORIDE 0.9% INJ 100 ML IV SCH (13:05)
--- NOTE | 2017-02-12 16:39 | PD.ORT.PN ---
Subjective Post Op Day #: 1 Subjective Remarks Patient is resting in bed with family at bedside. Patient reports mild pain but states it is better than what she had prior to surgery. Patient reports using a walker and transferring to a chair today. Objective Vitals Vital Signs Date Time Temp Pulse Resp B/P Pulse Ox O2 Delivery O2 Flow Rate FiO2 02/12/17 15:43 97.0 79 16 112/56 96 02/12/17 12:00 96.2 98 18 105/58 94 02/12/17 09:24 94 Nasal Cannula 2.00 02/12/17 08:00 95.8 71 18 104/53 98 02/12/17 04:05 97.9 80 18 121/56 96 02/12/17 01:45 96.5 77 18 95/66 97 02/12/17 00:30 77 12 94/55 98 Nasal Cannula 2 02/12/17 00:00 98.3 79 12 105/55 98 Nasal Cannula 2 02/11/17 23:30 82 11 107/52 100 Nasal Cannula 3 02/11/17 23:00 87 17 104/58 99 Nasal Cannula 3 02/11/17 22:30 85 12 100/53 97 Nasal Cannula 3 02/11/17 22:00 99.1 88 17 95/51 97 Nasal Cannula 3 02/11/17 21:30 96 15 90/55 96 Nasal Cannula 3 02/11/17 21:15 98.3 93 11 105/52 98 Nasal Cannula 3 02/11/17 21:00 89 16 107/56 97 Nasal Cannula 3 02/11/17 20:45 92 15 129/56 96 Nasal Cannula 3 02/11/17 20:30 90 19 141/62 96 Nasal Cannula 3 02/11/17 20:15 99.6 89 20 134/58 96 Nasal Cannula 3 I/O 02/11/17 02/11/17 02/11/17 02/12/17 02/12/17 02/12/17 07:00 15:00 23:00 07:00 15:00 23:00 Intake Total 200 ml 1630 ml 440 ml Output Total 700 ml 760 ml 850 ml Balance -500 ml 870 ml -410 ml Intake Oral 230 ml 440 ml IV Total 200 ml 400 ml Other 1000 ml Output Urine Total 700 ml 310 ml 850 ml Estimated Blood Loss 100 ml Other 350 ml # Bowel Movements 0 Result Diagram: 02/12/1761002/12/17610 Procedures Right hip ORIF Objective Remarks The patient's dressing is C/D/I. Mild swelling to the RLE. EHL/TA/G intact. 2 + pedal pulse. Calf is soft and nontender. + SILT. Assessment & Plan Ortho Post Op Day #: 1 Problem List: Assessment and Plan POD #1: Right hip ORIF 1. TTWB RLE 2. Lovenox for DVT prophylaxis 3. Ice to the right hip PRN 4. Anticipatory discharge to SNF on Friday if medically cleared. Andrea Sanz Feb 12, 2017 16:39
[2017-02-12] MEDS: ENOXAPARIN SODIUM 40 MG/0.4 ML SYRINGE SQ SCH (18:49)
[2017-02-12] MEDS: MONTELUKAST SODIUM 10 MG TAB PO SCH (19:50)
[2017-02-12] MEDS: TEMAZEPAM 15 MG CAP PO PRN (21:58)
[2017-02-13] VITALS (8 sets, daily range): BP systolic 122–153; BP diastolic 63–75; PULSE 74–93; RESP 18–20; TEMP 96–98.6; O2SAT 92–100
[2017-02-13] MEDS: DEXT 5%-NACL 0.45% 1000 ML INJ 1,000 ML IV SCH ×2 (01:20→08:49)
[2017-02-13] MEDS: MULTIVITAMINS/MINERALS THERAPEUTIC TAB PO SCH (08:46)
[2017-02-13] MEDS: DOCUSATE SODIUM 50 MG/SENNA 8.6 MG TAB PO SCH ×2 (08:46→19:34)
[2017-02-13] MEDS: PREGABALIN 25 MG CAP PO SCH ×2 (08:46→19:35)
[2017-02-13] MEDS: FAMOTIDINE 20 MG TAB PO SCH ×2 (08:46→19:34)
[2017-02-13] MEDS: ACETAMINOPHEN/HYDROcodone 325 MG/5 MG TAB PO PRN ×3 (08:47→18:03)
[2017-02-13] MEDS: SODIUM CHLORIDE 0.9% FLUSH 5 ML FLUSH IVF SCH ×2 (08:49→19:35)
[2017-02-13] MEDS: RESP: ALBUTEROL 2.5 MG/IPRATROPIUM 0.5 MG NEB (PRN) NEB ×2 (11:23→21:40)
--- NOTE | 2017-02-13 12:27 | PD.ORT.PN ---
Subjective Post Op Day #: 2 Subjective Remarks Patient is resting in bed with friend at bedside. Patient reports mild pain. Patient wants to transfer into chair. Objective Vitals Vital Signs Date Time Temp Pulse Resp B/P Pulse Ox O2 Delivery O2 Flow Rate FiO2 02/13/17 11:23 100 21 02/13/17 08:00 97.1 85 20 136/63 94 02/13/17 04:06 96.0 93 18 153/75 95 02/13/17 00:50 96.9 89 18 140/65 93 02/12/17 20:09 96.0 88 19 121/68 98 02/12/17 18:04 95 Nasal Cannula 2.00 02/12/17 15:43 97.0 79 16 112/56 96 I/O 02/12/17 02/12/17 02/12/17 02/13/17 02/13/17 02/13/17 07:00 15:00 23:00 07:00 15:00 23:00 Intake Total 440 ml 1200 ml 600 ml 480 ml Output Total 850 ml 550 ml 600 ml 1050 ml Balance -410 ml 650 ml 0 ml -570 ml Intake Oral 440 ml 1200 ml 480 ml 240 ml IV Total 120 ml 240 ml Output Urine Total 850 ml 550 ml 600 ml 1050 ml # Bowel Movements 0 0 0 0 Result Diagram: 02/12/1711 02/12/17 06 Procedures Right hip ORIF Objective Remarks The patient's dressing is C/D/I. Mild swelling to the RLE. EHL/TA/G intact. 2 + pedal pulse. Calf is soft and nontender. + SILT. Assessment & Plan Ortho Post Op Day #: 2 Problem List: Assessment and Plan POD #2: Right hip ORIF 1. TTWB RLE 2. Lovenox for DVT prophylaxis 3. Ice to the right hip PRN 4. Anticipatory discharge to SNF on Friday if medically cleared. Andrea Sanz Feb 13, 2017 12:27
[2017-02-13] MEDS: cefTRIAXone INJ 1,000 MG in SODIUM CHLORIDE 0.9% INJ 100 ML IV SCH (13:01)
--- NOTE | 2017-02-13 16:04 | HHI.PR ---
Subjective Subjective Remarks anxious c/o sob and wheezing on oxygen at 2L/NC no fever no cp no sob eating okay savage dc, voiding okay at bsd Review of Systems Constitutional Constitutional Remarks 12 point review of systems completed, negative except as noted above Vitals/Results Intake & Output 02/12/17 02/12/17 02/13/17 15:00 23:00 07:00 Intake Total 1200 ml 600 ml 480 ml Output Total 550 ml 600 ml 1050 ml Balance 650 ml 0 ml -570 ml Intake Oral 1200 ml 480 ml 240 ml IV Total 120 ml 240 ml Output Urine Total 550 ml 600 ml 1050 ml # Bowel Movements 0 0 0 Vital Signs Vital Signs Date Time Temp Pulse Resp B/P Pulse Ox O2 Delivery O2 Flow Rate FiO2 02/13/17 11:23 100 21 02/13/17 08:00 97.1 85 20 136/63 94 02/13/17 04:06 96.0 93 18 153/75 95 02/13/17 00:50 96.9 89 18 140/65 93 02/12/17 20:09 96.0 88 19 121/68 98 02/12/17 18:04 95 Nasal Cannula 2.00 CBC/BMP: 02/12/17 0611 02/12/17 0611 Physical Exam General General Appearance: Well Developed, No Acute Distress, Comfortable, Anxious Eyes Eye Exam: Pupils Equal, Pupils Reactive Ears & Nose Ears & Nose Exam: Nasal Mucosa [place] Throat Throat Exam: Oral Mucosa [place] & Moist Pulmonary Resp Remarks Faint bibasilar Rales Expiratory wheezes Cardiology CV Exam: Regular, Good Perfusion Gastrointestinal/Abdomen GI Exam: Soft, Non-Tender, Bowel Sounds Present, Non-Distended Musculoskeletal MS Exam: Joints Intact MS Remarks Right hip dressing dry and intact Integumentary Skin Exam: Warm, Dry Extremeties Extremities Exam: No Edema, Pedal Pulses Palpable Neurologic Neuro Exam: Alert, Awake, Oriented, Speech Clear, Records Analysis Manager Equal Psychiatric Psych Exam: Appropriate Responses VTE Prophylaxis VTE Prophylaxis Device: SCDs VTE Prophylaxis Meds: Lovenox Assessment/Plan Assessment/Plan 1. Closed right hip fracture. S/ P right hip arthroplasty 02/11. Postop care and pain management per ortho. Doing well postop Bowel regimen 2. Urinary tract infection. Urine culture positive for Pseudomonas, discontinue Rocephin, start Cipro 250 mg by mouth twice a day 3. History of hypertension. Stable BP, continue with medical 4. COPD continue with oxygen, duonebs PRN noted with rales, stop IVF monitor sats, keep on oxygen at 2L/NC to keeps sats > 92% 5. Anemia, mild, postop Monitor, Hgb 10 this morning DVT prophylaxis with Lovenox PUD prophylaxis with Pepcid Discharge planning for rehabilitation soon, poss. tomorrow D/W RN D/W pt and D/W Dr. Wellington This patient was seen by myself and Dr. Wellington, this note is written on his behalf Radha Cummings Feb 13, 2017 16:04
[2017-02-13] MEDS: ENOXAPARIN SODIUM 40 MG/0.4 ML SYRINGE SQ SCH (18:03)
[2017-02-13] MEDS: CIPROFLOXACIN 250 MG TAB PO SCH (19:34)
[2017-02-13] MEDS: MONTELUKAST SODIUM 10 MG TAB PO SCH (19:34)
[2017-02-13] MEDS: SODIUM CHLORIDE 0.9% FLUSH 10 ML FLUSH IVF PRN (19:35)
[2017-02-13] MEDS: TEMAZEPAM 15 MG CAP PO PRN (21:53)
[2017-02-14 00:05] VITALS: BP 131/68; PULSE 93; RESP 18; TEMP 98.7; O2SAT 93
[2017-02-14] MEDS: ACETAMINOPHEN/HYDROcodone 325 MG/5 MG TAB PO PRN ×3 (03:25→14:52)
[2017-02-14 04:00] VITALS: BP 139/70; PULSE 94; RESP 16; TEMP 97.7; O2SAT 95
[2017-02-14 07:38] VITALS: BP 126/60; PULSE 91; RESP 19; TEMP 97.8; O2SAT 92
[2017-02-14] MEDS: FAMOTIDINE 20 MG TAB PO SCH (08:40)
[2017-02-14] MEDS: MULTIVITAMINS/MINERALS THERAPEUTIC TAB PO SCH (08:40)
[2017-02-14] MEDS: SODIUM CHLORIDE 0.9% FLUSH 5 ML FLUSH IVF SCH (08:40)
[2017-02-14] MEDS: DOCUSATE SODIUM 50 MG/SENNA 8.6 MG TAB PO SCH (08:40)
[2017-02-14] MEDS: PREGABALIN 25 MG CAP PO SCH (08:40)
[2017-02-14] MEDS: CIPROFLOXACIN 250 MG TAB PO SCH (08:40)
[2017-02-14] MEDS: RESP: ALBUTEROL 2.5 MG/IPRATROPIUM 0.5 MG NEB (PRN) NEB (09:18)
[2017-02-14 09:21] VITALS: O2SAT 92
[2017-02-14 11:25] VITALS: BP 117/61; PULSE 92; RESP 19; TEMP 96.1; O2SAT 92
[2017-02-14] MEDS ORDERED: IPRASOL NEB (12:00)
[2017-02-14] MEDS ORDERED: MONT10TA4 PO (12:00)
[2017-02-14] MEDS ORDERED: CIPR250T52 PO (12:00)
--- NOTE | 2017-02-14 12:01 | HHI.DCPOC ---
Discharge Care Plan Diagnosis: (1) Closed right hip fracture Your Health Problems Are: Difficulty with ADL Goals to Promote Your Health * To prevent worsening of your condition and complications * To maintain your health at the optimal level Directions to Meet Your Goals Take your medications as prescribed Follow your dietary instruction Follow activity as directed Keep your appointments as scheduled Take your immunizations and boosters as scheduled If your symptoms worsen call your PCP, if no PCP go to Urgent Care Center or Emergency Room Smoking is Dangerous to Your Health. Avoid second hand smoke Call the 24-hour hour crisis hotline for domestic abuse at Radha Cummings [facility] Feb 14, 2017 12:01
--- NOTE | 2017-02-14 12:06 | HHI.PR ---
Subjective Subjective Remarks pain controlled some wheezing no fever no cp had BM on RA now daughter at bsd Review of Systems Constitutional Constitutional Remarks 12 point review of systems completed, negative except as noted above Vitals/Results Intake & Output 02/13/17 02/13/17 02/14/17 15:00 23:00 07:00 Intake Total 600 ml 480 ml 240 ml Output Total 500 ml Balance 100 ml 480 ml 240 ml Intake Oral 600 ml 480 ml 240 ml Output Urine Total 500 ml # Voids 1 2 # Bowel Movements 1 1 Vital Signs Vital Signs Date Time Temp Pulse Resp B/P Pulse Ox O2 Delivery O2 Flow Rate FiO2 02/14/17 11:25 96.1 92 19 117/61 92 02/14/17 09:21 92 21 02/14/17 07:38 97.8 91 19 126/60 92 02/14/17 04:00 97.7 94 16 139/70 95 02/14/17 00:05 98.7 93 18 131/68 93 02/13/17 21:40 92 21 02/13/17 16:00 98.6 84 19 130/70 95 CBC/BMP: 02/12/17 0611 02/12/17 0611 Physical Exam General General Appearance: Well Developed, No Acute Distress, Comfortable, Sleeping Eyes Eye Exam: Pupils Equal, Pupils Reactive Ears & Nose Ears & Nose Exam: Nasal Mucosa [place] Throat Throat Exam: Oral Mucosa [place] & Moist Neck Neck Exam: Neck Supple, Trachea Midline Pulmonary Resp Remarks Faint bibasilar Rales Expiratory wheezes Cardiology CV Exam: Regular, Good Perfusion Gastrointestinal/Abdomen GI Exam: Soft, Non-Tender, Bowel Sounds Present, Non-Distended Musculoskeletal MS Exam: Joints Intact MS Remarks Right hip dressing dry and intact Integumentary Skin Exam: Warm, Dry Extremeties Extremities Exam: No Edema, Pedal Pulses Palpable Neurologic Neuro Exam: Alert, Awake, Oriented, Speech Clear, Picture Framer Equal Psychiatric Psych Exam: Appropriate Responses VTE Prophylaxis VTE Prophylaxis Device: SCDs VTE Prophylaxis Meds: Lovenox Assessment/Plan Assessment/Plan 1. Closed right hip fracture. S/ P right hip arthroplasty 02/11. Postop care and pain management per ortho. Doing well postop Bowel regimen -had BM Lovenox for DVT prophylaxis 2. Urinary tract infection. Urine culture positive for Pseudomonas, discontinued Rocephin, continue Cipro 250 mg by mouth twice a day 3. History of hypertension. Stable BP, continue with medical 4. COPD, stable, on RA now. continue with oxygen PRN, duonebs PRN minimal rales today 5. Anemia, mild, postop Monitor, Hgb 10 this morning DVT prophylaxis with Lovenox PUD prophylaxis with Pepcid Stable for discharge, ok per ortho. Discharge to SNF today F/U ortho 2 weeks Diet-heart healthy Activity-as tolerated D/W RN D/W pt and daughter D/W Dr. Wellington This patient was seen by myself and Dr. Wellington, this note is written on his behalf Discharge Minutes: 45 Radha Cummings Feb 14, 2017 12:06
--- NOTE | 2017-02-14 12:07 | HHI.DS ---
Discharge Summary Admission Date Feb 11, 2017 at 09:45 Discharge Date: Feb 14, 2017 Admitting Diagnosis right femur fracture (1) Closed right hip fracture (2) Hypertension (3) Hypothyroidism (4) Urinary tract infection (5) Anemia Procedures S/ P right hip arthroplasty 02/11 CBC/BMP: 02/12/17 0611 02/12/17 0611 Significant Findings Laboratory Tests Test 02/12/17 06:11 Red Blood Count 3.21 MIL/MM3 (4.00-5.30) Hemoglobin 10.0 GM/DL (11.6-15.3) Hematocrit 30.3 % (35.0-46.0) Red Cell Distribution Width 17.6 % (11.6-17.2) Sodium Level 135 MEQ/L (136-145) Estimat Glomerular Filtration 74 ML/MIN (>89) Rate Random Glucose 167 MG/DL (74-106) Calcium Level 7.9 MG/DL (8.5-10.1) Imaging Last Impressions Hip and Pelvis X-Ray 02/11/17 0749 Signed Impressions: Service Date/Time: Saturday, February 11, 2017 08:51 - CONCLUSION: 1. Mildly comminuted right intertrochanteric fracture. 2. Old fracture deformities of the pubic rami. Willard Matamoros MD Femur X-Ray 02/11/17 0749 Signed Impressions: Service Date/Time: Saturday, February 11, 2017 08:53 - CONCLUSION: 1. Right intertrochanteric fracture. 2. More chronic appearing deformity of the superior pubic rami. Willard Matamoros MD Chest X-Ray 02/11/17 0749 Signed Impressions: Service Date/Time: Saturday, February 11, 2017 09:01 - CONCLUSION: Coarse interstitial opacities bilaterally, increased from the prior study from 2013 but otherwise of uncertain etiology. Otherwise, no acute finding is identified. If symptoms persist consider of chest CT for further evaluation. Champ Junior MD Hip X-Ray 02/11/17 0000 Signed Impressions: Service Date/Time: Saturday, February 11, 2017 19:38 - CONCLUSION: Fluoroscopic images during placement of intramedullary marie/compression screw in right hip and proximal femur. Benny Banerjee MD Hospital Course This is a pleasant 86 year old independent white female who got up around midnight to go to the bathroom, she slipped on a throw rug that was close to her bed and laid on the floor for an unspecified length of time. She stated that she did not think that she hit her head. The patient denied any chest pain, no shortness of breath, no cough. No headache. According to the record and the patient, she was recently discharged from the hospital three weeks ago with pneumonia. She has still taken outpatient respiratory treatments but other than that no fever, no cough, no further antibiotic usage. Patient does state that she gets strangled easily on liquids but up until yesterday she was in her usual state of health. The patient is noted to have a small amount of thrush in the back of her throat. She states that she had been treated for the thrush post the antibiotics that she took for her pneumonia. Was evaluated in the ED and found with: DIAGNOSTIC DATA: White blood count 9.5, Red blood cells 3.77, hemoglobin 12.1, hematocrit 35.2. Platelet count 229. Neutrophil count 78.8. PT/INR 1. Chemistries; sodium 135, potassium 4. Chloride 101, carbon dioxide 27, Amnion gap 7. Blood urea nitrogen 14, creatinine 0.87. Glomerular filtration rate 62. Random glucose 118. Calcium 7.8. Albumin 2.7. Urine is yellow, hazy, pH 7.5, specific gravity 1.012, trace of protein negative for glucose, ketones, occult blood. Bilirubin positive for nitrates and large amount of leukocytes Estrace. Culture will be pending. IMAGING STUDIES: Show chest x-ray; course interstitial opacities bilateral. Consider chest CT for further evaluation. Femur x-ray, right intratrochanteric fracture, more chronic appearing deformity of the superior pubic rami. Hip/Pelvis x-ray, mildly communicated right intratrochanteric fracture, old fracture deformities of the pubic rami. Admitted for: 1. Closed right hip fracture. 2. Urinary tract infection. 3. History of hypertension. 4. History of recent pneumonia. 5. History of constipation. 6. Thrush. 7. Anemia, mild. 8. Hypernatremia, mild. 9. Hypocalcemia, mild. 10. Moderate protein calorie malnutrition. During the course of the hospitalization, the following took place: Admitted for above, put on appropriate pain management. Orthopedic consultation was obtained. Put on duonebs PRN wheezing, monitored for fever, inc. cough, fever. Nystatin ordered. Pt. had surgery. S/ P right hip arthroplasty 02/11. Postop care and pain management per ortho. Did well postop Bowel regimen -had BM Lovenox for DVT prophylaxis Urinary tract infection was treated with IV abx, cultures followed. Urine culture positive for Pseudomonas, discontinued Rocephin, changed to Cipro 250 mg by mouth twice a day History of hypertension. Stable BP, continue with medical COPD, stable, put on oxygen at 2LNC, duonebs PRN. Was noted with rales, IVF stopped. Respiratory symptoms improved. Anemia, mild, postop, monitored closely, remained stable, hgb 10 CM consult for dc planning Uneventful post op course, had BM Cleared by ortho for discharged Discharged to SNF Instructed to: F/U ortho 2 weeks Diet-heart healthy Activity-as tolerated Pt Condition on Discharge: Stable Discharge Disposition: Discharge to SNF Discharge Instructions DIET: Follow Instructions for: Heart Healthy Diet Activities you can perform: Weight Bearing as Jagjit Follow up Referrals: Orthopedics with Frantz Swan MD New Medications: Aspirin (Aspirin) 325 Mg Tab 325 MG PO DAILY Start Aspirin after Lovenox is completed. Prevent Blood Clot # 30 Ref 0 TAB Enoxaparin Inj (Lovenox Inj) 40 Mg/0.4 Ml Syr 40 MG SQ DAILY Start Aspirin after Lovenox is completed. Blood Clot Prevention # 10 Ref 0 SYRINGE Hydrocodone-Acetaminophen (Reva) 5-325 mg Tab 1-2 TAB PO Q4H PRN PAIN #60 Ref 0 TAB Ciprofloxacin (Cipro) 250 Mg Tab 250 MG PO Q12HR Infection #6 Ref 0 TAB Ipratropium-Albuterol Neb (Duoneb) 0.5-2.5 Mg/3 Ml Neb 1 AMPULE NEB Q6HR NEB PRN sob #28 ML Montelukast (Montelukast) 10 Mg Tab 10 MG PO HS Asthma Management #30 Ref 0 TAB Continued Medications: Enalapril (Enalapril) 2.5 Mg Tab MG PO BID Ref 0 TAB Pregabalin (Lyrica) 25 Mg Cap 25 MG PO BID #60 Ref 0 CAP Topiramate (Topamax) 25 Mg Tab MG PO BID Control Seizures Ref 0 TAB Discontinued Medications: Albuterol 8.5 GM Inh (Proair Hfa 8.5 GM Inh) 90 Mcg/Act Aer 1 PUFF INH Q4H 108 mcg/actuation PRN SHORTNESS OF BREATH #1 Ref 0 INHALER Ibuprofen (Advil) 200 Mg Cap 200 MG PO Q4H PRN Ref 0 CAP Montelukast (Singulair) 4 Mg Chew MG PO HS Ref 0 TAB Montelukast (Montelukast) 4 Mg Chew MG CHEW HS Ref 0 TAB Sodium Bicarbonate-Citric Acid ([place] Heartburn Relief) 1,940-1,000 Mg Tab 2 TAB PO Q4H PRN HEARTBURN Ref 0 TAB Temazepam (Temazepam) 15 Mg Cap 15 MG PO HS PRN INSOMNIA Ref 0 CAP Tramadol (Tramadol) 50 Mg Tab MG PO Q4H PRN PAIN Ref 0 TAB Radha Cummings Feb 14, 2017 12:07
[2017-02-14] MEDS ORDERED: HYDR-3516 PO (13:35)
[2017-02-14] MEDS ORDERED: SENN1TAB PO (13:35)
[2017-02-14] MEDS ORDERED: REST15CA PO (13:35)
== END 2017-02-14 15:40 | DRG 956 ==
LOC: NEPE 07:33 → NEDA 09:45 → NEDH 14:48 → N06B 02-12 01:37
PROVIDERS: ADMIT Specialist; ATTEND Specialist
PROC: 0QS636Z Reposition Right Upper Femur with Intramedullary Internal Fixation Device, Percutaneous Approach (ICD-10-PCS; principal; 2017-02-11 18:38)
DX: S72.21XA Displaced subtrochanteric fracture of right femur, initial encounter for closed fracture (principal); S32.592A Other specified fracture of left pubis, initial encounter for closed fracture; S32.591A Other specified fracture of right pubis, initial encounter for closed fracture; S72.141A Displaced intertrochanteric fracture of right femur, initial encounter for closed fracture; E87.0 Hyperosmolality and hypernatremia; E44.0 Moderate protein-calorie malnutrition; N39.0 Urinary tract infection, site not specified; I48.91 Unspecified atrial fibrillation; J44.9 Chronic obstructive pulmonary disease, unspecified; I10 Essential (primary) hypertension; B37.9 Candidiasis, unspecified; E83.51 Hypocalcemia; D64.9 Anemia, unspecified; E03.9 Hypothyroidism, unspecified; I25.10 Atherosclerotic heart disease of native coronary artery without angina pectoris; J45.909 Unspecified asthma, uncomplicated; W01.0XXA Fall on same level from slipping, tripping and stumbling without subsequent striking against object, initial encounter; Y92.9 Unspecified place or not applicable; K59.00 Constipation, unspecified; Z87.01 Personal history of pneumonia (recurrent); Z96.641 Presence of right artificial hip joint
CPT/HCPCS: 71010; 73502; 73552; 76000; 76937; 80048; 80053; 81001; 85007; 85027; 85610; 85730; 86850; 86900; 86901; 87077; 87086; 87186; 93005; 94150; 94640; 94664; 96374; C1713; J0690; J0696; J1200; J1650; J2175; J2270; J2370; J2405; J3010; J3370; J7120

== ENCOUNTER 2017-05-05 09:12 | Inpatient (IN) | payer MEDICARE, BC ==
[~2017-05-05] VITALS: Ht 154.9 cm; Wt 54.1 kg
[~2017-05-05 09:12] MED LIST changes: +ASPI325T PO; -ASPI81 PO; +CIPR250T52 PO; -CIPR500T2 PO; +ENAL2.5T PO; -ENAL20TA81 PO; -ENOX30P SQ; +ENOX40P SQ; +HYDR-3516 PO; +IPRASOL NEB; -LEVO.075 PO; +MONT10TA4 PO; +NORC5TAB PO; -PERC5TAB12 PO; -PREG100 PO; +PREG25 PO; +SENN1TAB PO; +TOPA25TA8 PO; -TOPI25CA PO; -TRAM50TA PO; -VENTAER INH
[2017-05-05 09:22] VITALS: BP 160/73; PULSE 67; RESP 21; TEMP 97.8; O2SAT 95
[2017-05-05] MEDS: SODIUM CHLOR 0.9% 1000 ML INJ 1,000 ML IV SCH ×2 (10:59→20:10)
[2017-05-05] MEDS ORDERED: PROTHROMBIN COMPLEX CONC INJ 1,500 UNITS in SYRINGE/BAG 1 EA IV ONE (11:00)
--- NOTE | 2017-05-05 11:03 | PD ---
HPI Chief Complaint: Chest Pain Time Seen by Provider: 10:39 Travel History International Travel<30 days: No Contact w/Intl Traveler<30days: No Traveled to known affect area: No History of Present Illness HPI 86-year-old female complains of right-sided chest pain and nosebleed. Patient states that she started having right-sided chest pain for the past several weeks. Patient was seen at a hospital in [place] 3 days ago and was diagnosis with blood clots in the right lung. Patient was put on Xarelto. Patient started having nosebleeds for the past 3 days. Patient states that the bleeding has been persistent from the left-sided nose. Patient denies any headache. Patient states that she has sharp stabbing pain localized to right chest. Patient states that she took some nitroglycerin sublingually with some relief of the chest pain. Patient denies any coughing congestion. Patient states that she has indigestion feeling all night last night. Patient denies any nausea vomiting diarrhea. Patient denies any focal weakness or numbness of extremity. Patient has history of COPD, CAD, cardiac arrhythmia with atrial fibrillation, hypertension, hypothyroidism, recently right hip fracture. PFSH Past Medical History Hx Anticoagulant Therapy: Yes (RIVAOXABAN) Arthritis: Yes Asthma: Yes Atrial Fibrillation: Yes Blood Disorders: No Anxiety: Yes Heart Rhythm Problems: No Cancer: Yes (hx of skin cancers) High Cholesterol: No Chemotherapy: No Congestive Heart Failure: No COPD: Yes Coronary Artery Disease: Yes Diabetes: No Endocrine: Yes Genitourinary: Yes (BLADDER PUNCTURED AFTER PUBIC BONE FX) Headaches: Yes Hypertension: Yes Immune Disorder: No Medical other: Yes (PULMONARY EMBOLI) Musculoskeletal: Yes Neurologic: Yes (hand tremors) Psychiatric: No Respiratory: Yes (COPD, ASTHMA) Pneumonia: Yes Radiation Therapy: No Seizures: No Sleep Apnea: Yes Thyroid Disease: Yes ?: Not Menopausal: Yes Past Surgical History Abdominal Surgery: Yes Body Medical Devices: screws in teeth and neck areas Cardiac Surgery: No Ear Surgery: No Endocrine Surgery: No Eye Surgery: Yes (CATARACTS) Genitourinary Surgery: Yes (BLADDER REPAir) Gynecologic Surgery: Yes (hysterectomy) Hysterectomy: Yes Joint Replacement: No (LEFT HIP SCREWS/PLATE) Oral Surgery: Yes (2006) Thoracic Surgery: No Other Surgery: Yes Social History Alcohol Use: No Tobacco Use: No Substance Use: No Allergies-Medications (Allergen,Severity, Reaction): Coded Allergies: Adhesives (Verified Allergy, Severe, skin irritation, 05/05/17) Phenobarbital (Verified Allergy, Severe, VOMITING, 05/05/17) Codeine (Verified Allergy, Intermediate, Nausea/Vomiting, 05/05/17) Uncoded Allergies: SOME NARCOTICS (Allergy, Unknown, 07/04/08) Reported Meds & Prescriptions Reported Meds & Active Scripts Active Restoril (Temazepam) 15 Mg Cap 15 Mg PO HS PRN Senna Plus 8.6-50 mg (Sennosides-Docusate Sodium) 1 Tab Tab 1 Tab PO BID Hydrocodone-Acetaminophen 5-325 mg Tab 1 Tab PO Q4H PRN Montelukast (Montelukast Sodium) 10 Mg Tab 10 Mg PO HS Duoneb (Ipratropium-Albuterol Neb) 0.5-2.5 Mg/3 Ml Neb 1 Ampule NEB Q6HR NEB PRN Cipro (Ciprofloxacin HCl) 250 Mg Tab 250 Mg PO Q12HR Aspirin 325 Mg Tab 325 Mg PO DAILY Start Aspirin after Lovenox is completed. Lovenox Inj (Enoxaparin Sodium) 40 Mg/0.4 Ml Syr 40 Mg SQ DAILY Start Aspirin after Lovenox is completed. [place] (Hydrocodone-Acetaminophen) 5-325 mg Tab 1-2 Tab PO Q4H PRN Reported Enalapril (Enalapril Maleate) 2.5 Mg Tab Mg PO BID Topamax (Topiramate) 25 Mg Tab Mg PO BID Lyrica (Pregabalin) 25 Mg Cap 25 Mg PO BID Review of Systems General / Constitutional: No: Fever Eyes: No: Visual changes HENT: No: Headaches Cardiovascular: Positive: Chest Pain or Discomfort Respiratory: No: Shortness of Breath Gastrointestinal: No: Abdominal Pain Genitourinary: No: Dysuria Musculoskeletal: No: Pain Skin: No Rash Neurologic: No: Weakness Psychiatric: No: Depression Endocrine: No: Polydipsia Hematologic/Lymphatic: No: Easy Bruising Physical Exam Narrative GENERAL: Well-nourished, well-developed patient. SKIN: Focused skin assessment warm/dry. HEAD: Normocephalic. EYES: No scleral icterus. No injection or drainage. Patient has packing in place and the left-sided nose. Patient has small amount of fresh blood running down in the back of the throat. NECK: Supple, trachea midline. No JVD or lymphadenopathy. CARDIOVASCULAR: Regular rate and rhythm without murmurs, gallops, or rubs. RESPIRATORY: Breath sounds equal bilaterally. No accessory muscle use. GASTROINTESTINAL: Abdomen soft, non-tender, nondistended. MUSCULOSKELETAL: No cyanosis, or edema. BACK: Nontender without obvious deformity. No CVA tenderness. Neurologic exam: Patient is awake and alert oriented 3. No obvious focal neurological deficit. Data Data Last Documented VS Vital Signs Date Time Temp Pulse Resp B/P Pulse Ox O2 Delivery O2 Flow Rate FiO2 05/05/17 09:26 Room Air 05/05/17 09:22 97.8 67 21 160/73 95 Orders Complete Blood Count With Diff (05/05/17 10:51) Comprehensive Metabolic Panel (05/05/17 10:51) Creatine Kinase (Cpk) (05/05/17 10:51) Troponin I (05/05/17 10:51) B-Type Natriuretic Peptide (05/05/17 10:51) Prothrombin Time / Inr (Pt) (05/05/17 10:51) Act Partial Throm Time (Ptt) (05/05/17 10:51) Urinalysis - C+S If Indicated (05/05/17 10:51) Chest, Single Ap (05/05/17 10:51) Iv Access Insert/Monitor (05/05/17 10:51) Ecg Monitoring (05/05/17 10:51) Oximetry (05/05/17 10:51) Sodium Chlor 0.9% 1000 Ml Inj (Ns 1000 M (05/05/17 11:00) Prothrombin Complex Conc Inj (Kcentra In (05/05/17 11:00) Morphine Inj (Morphine Inj) (05/05/17 12:15) Ondansetron Inj (Zofran Inj) (05/05/17 12:15) Lidocai-Epi 1%-1:100,000 Inj (Xylocaine- (05/05/17 12:15) Electrocardiogram (05/05/17 09:21) Labs Laboratory Tests Test 05/05/17 05/05/17 10:30 11:30 White Blood Count 11.5 TH/MM3 Red Blood Count 3.86 MIL/MM3 Hemoglobin 12.5 GM/DL Hematocrit 38.3 % Mean Corpuscular Volume 99.2 FL Mean Corpuscular Hemoglobin 32.3 PG Mean Corpuscular Hemoglobin 32.5 % Concent Red Cell Distribution Width 16.9 % Platelet Count 291 TH/MM3 Mean Platelet Volume 8.0 FL Neutrophils (%) (Auto) 71.5 % Lymphocytes (%) (Auto) 22.2 % Monocytes (%) (Auto) 4.9 % Eosinophils (%) (Auto) 0.9 % Basophils (%) (Auto) 0.5 % Neutrophils # (Auto) 8.2 TH/MM3 Lymphocytes # (Auto) 2.5 TH/MM3 Monocytes # (Auto) 0.6 TH/MM3 Eosinophils # (Auto) 0.1 TH/MM3 Basophils # (Auto) 0.1 TH/MM3 CBC Comment AUTO DIFF Differential Comment AUTO DIFF CONFIRMED Platelet Estimate NORMAL Platelet Morphology Comment NORMAL Red Cell Morphology Comment NORMAL Sodium Level 136 MEQ/L Potassium Level 4.9 MEQ/L Chloride Level 101 MEQ/L Carbon Dioxide Level 25.6 MEQ/L Anion Gap 9 MEQ/L Blood Urea Nitrogen 22 MG/DL Creatinine 0.71 MG/DL Estimat Glomerular Filtration 78 ML/MIN Rate Random Glucose 71 MG/DL Calcium Level 8.5 MG/DL Total Bilirubin 0.4 MG/DL Aspartate Amino Transf 39 U/L (AST/SGOT) Alanine Aminotransferase 29 U/L (ALT/SGPT) Alkaline Phosphatase 65 U/L Total Creatine Kinase 61 U/L Troponin I 0.04 NG/ML B-Type Natriuretic Peptide 84 PG/ML Total Protein 5.5 GM/DL Albumin 2.7 GM/DL Prothrombin Time 11.4 SEC Prothromb Time International 1.0 RATIO Ratio Activated Partial 24.2 SEC Thromboplast Time Urine Color YELLOW Urine Turbidity HAZY Urine pH 8.0 Urine Specific [place] 1.012 Urine Protein NEG mg/dL Urine Glucose (UA) NEG mg/dL Urine Ketones NEG mg/dL Urine Occult Blood NEG Urine Nitrite NEG Urine Bilirubin NEG Urine Urobilinogen LESS THAN 2.0 MG/DL Urine Leukocyte Esterase NEG Urine RBC LESS THAN 1 /hpf Urine WBC 1 /hpf Urine Squamous Epithelial 1 /hpf Cells Urine Amorphous Sediment MOD Urine Bacteria OCC /hpf Urine Hyaline Casts 1 /lpf Microscopic Urinalysis Comment CULT NOT INDICATED MDM Medical Decision Making Medical Screen Exam Complete: Yes Emergency Medical Condition: Yes Interpretation(s) 11:02 AM. EKG show sinus rhythm nonspecific ST-T wave change. 12:18 PM. Last Impressions Chest X-Ray 05/05/17 1051 Signed Impressions: Service Date/Time: Friday, May 05, 2017 11:10 - CONCLUSION: Normal examination. Mild diffuse interstitial prominence particularly lung bases improved since January Iker Jesus MD 1219 p.m. CBC WBC 11.5. Hemoglobin 12.5 hematocrit 30.3. 71 neutrophil. CMP within normal limit. BUN 22. Cardiac enzymes are normal. BNP 84. INR 1.0. APTT 24.2. Differential Diagnosis Differential diagnosis including epistaxis, PE, pneumothorax, coagulopathy, pneumonia, angina, NV. Narrative Course 86-year-old female with epistaxis, right-sided chest pain, history of PE and on Xarelto. K Centra 25 mg IV given. Morphine 2 mg IV. Zofran 4 mg IV. Nasal packing left side the nose. Normal saline solution 100 cc an hour. Protonix 40 mg IV. Procedures Procedure Narrative Rhino Rocket inserted on the left-sided nose. Diagnosis Primary Impression: Chest pain Qualified Code: R07.9 - Chest pain, unspecified type Additional Impressions: Epistaxis Coagulopathy Admitting Information Admitting Physician Requests: Admit Johnson Jerome MD May 05, 2017 11:03
[2017-05-05 11:05] LABS: AUTOMATED NEUTROPHIL # 8.2 TH/MM3 (1.8-7.7); BASOPHIL # 0.1 TH/MM3 (0-0.2); BASOPHIL % 0.5 % (0.0-2.0); EOSINOPHIL # 0.1 TH/MM3 (0-0.4); EOSINOPHIL % 0.9 % (0.0-4.0); HEMATOCRIT 38.3 % (35.0-46.0); LYMPH % 22.2 % (9.0-44.0); LYMPHOCYTE # 2.5 TH/MM3 (1.0-4.8); MEAN CELL VOLUME 99.2 FL (80.0-100.0); MEAN CORPUSCULAR HEMOGLOBIN 32.3 PG (27.0-34.0); MEAN CORPUSCULAR HGB CONC 32.5 % (32.0-36.0); MONO % 4.9 % (0.0-8.0); NEUT % 71.5 % (16.0-70.0); PLATELET COUNT 291 TH/MM3 (150-450); RED BLOOD COUNT 3.86 MIL/MM3 (4.00-5.30); RED CELL DISTRIBUTION WIDTH 16.9 % (11.6-17.2); WHITE BLOOD COUNT 11.5 TH/MM3 (4.0-11.0)
[2017-05-05 11:07] LABS: HEMO FLAGS AUTO DIFF
[2017-05-05 11:25] LABS: ALT (GPT) 29 U/L (10-53); ANION GAP 9 MEQ/L (5-15); AST (GOT) 39 U/L (15-37); BICARBONATE 25.6 MEQ/L (21.0-32.0); BLOOD UREA NITROGEN 22 MG/DL (7-18); CHLORIDE 101 MEQ/L (98-107); GLOMERULAR FILTRATION RATE 78 ML/MIN (>89); SODIUM (NA) 136 MEQ/L (136-145)
[2017-05-05 11:26] LABS: POTASSIUM 4.9 MEQ/L (3.5-5.1)
[2017-05-05 11:28] LABS: ALKALINE PHOSPHATASE 65 U/L (45-117); TOTAL BILIRUBIN ADULT 0.4 MG/DL (0.2-1.0)
--- NOTE | 2017-05-05 11:30 | RADRPT ---
EXAM DATE/TIME: 05/05/2017 11:10 [facility] COMPARISON: CHEST SINGLE AP, February 11, 2017, 9:01. INDICATIONS : Short of breath, syncope MEDICAL HISTORY : blood clot in her right lung 05-02-17. SURGICAL HISTORY : None. ENCOUNTER: Initial ACUITY: 1 day PAIN SCORE: 0/10 LOCATION: Bilateral chest FINDINGS: A single view of the chest demonstrates the lungs to be symmetrically aerated without evidence of mas s, infiltrate or effusion. Diffuse interstitial infiltrates improved since January The cardiomediastin al contours are unremarkable. Osseous structures are intact. CONCLUSION: Normal examination. Mild diffuse interstitial prominence particularly lung bases improved since Apri l Iker Jesus MD on May 05, 2017 at 11:27 Board Certified Radiologist. This report was verified electronically.
[2017-05-05 11:32] LABS: CREATINE KINASE 61 U/L (26-192)
[2017-05-05 11:56] LABS: PLATELET ESTIMATE SMEAR NORMAL (NORMAL); PLATELET MORPHOLOGY NORMAL (NORMAL); SCAN/DIFF AUTO DIFF CONFIRMED
[2017-05-05 12:04] LABS: PROTHROMBIN TIME - PATIENT 11.4 SEC (9.8-11.6)
[2017-05-05 12:09] LABS: APTT (PATIENT) 24.2 SEC (24.3-30.1)
[2017-05-05] MEDS ORDERED: ONDANSETRON HCL 4 MG/2 ML VIAL IV PUSH ONE (12:15)
[2017-05-05] MEDS ORDERED: LIDOCAINE 1%/EPINEPHrine 1:100,000 SOLN 20 ML VIAL INFIL ONE (12:15)
[2017-05-05] MEDS ORDERED: MORPHINE SULFATE 8 MG/ML INJ IV PUSH ONE (12:15)
[2017-05-05 12:25] LABS: BACTERIA, URINE OCC /hpf; BLOOD, URINE NEG (NEG); COMMENT (UR) CULT NOT INDICATED; CULTURE IF INDICATED CULT NOT INDICATED; GLUCOSE,URINE NEG (NEG); HYALINE CAST, URINE 1 /lpf (RARE); KETONE, URINE NEG (NEG); NITRITE,URINE NEG (NEG); SQUAMOUS EPITHELIAL CELL URINE 1 /hpf (0-5); URINE COLOR YELLOW (YELLW/STRAW)
[2017-05-05] MEDS ORDERED: ENALAPRILAT 1.25 MG/ML VIAL IV PUSH PRN (13:15)
[2017-05-05] MEDS ORDERED: SODIUM CHLORIDE 0.9% FLUSH 10 ML FLUSH IV FLUSH PRN (13:15)
[2017-05-05] MEDS ORDERED: SENNOSIDES 8.6 MG TAB PO PRN (13:15)
[2017-05-05] MEDS ORDERED: MAGNESIUM HYDROXIDE SUSP 30 ML CUP PO PRN (13:15)
[2017-05-05] MEDS ORDERED: BISACODYL 10 MG SUPP RECTAL PRN (13:15)
[2017-05-05] MEDS ORDERED: LACTULOSE SYRUP 20 GM/30 ML CUP PO PRN (13:15)
[2017-05-05] MEDS ORDERED: ACETAMINOPHEN 325 MG TAB PO PRN (13:15)
[2017-05-05] MEDS ORDERED: NALOXONE HCL 0.4 MG/ML AMP IV PRN (13:15)
[2017-05-05] MEDS ORDERED: AMOXICILLIN (TRIHYDRATE) 500 MG CAP PO ONE (13:15)
[2017-05-05] MEDS ORDERED: ONDANSETRON HCL 4 MG/2 ML VIAL IVP PRN (13:15)
[2017-05-05 14:26] VITALS: BP 176/75; PULSE 78; RESP 20
[2017-05-05] MEDS ORDERED: NITROGLYCERIN 0.4 MG SL 25 TABS/BTL SL PRN (14:45)
--- NOTE | 2017-05-05 14:58 | HHI.HP ---
[facility] Gabriella Mendoza Admission Diagnosis epistaxis. Chest pain. Coagulopathy. Diagnoses: Chief Complaint: chest pain, epistaxis Travel History International Travel<30 Days: No Contact w/Intl Traveler <30 Da: No Traveled to Known Affected Are: No History of Present Illness 86-year-old female from [facility] with history of anemia, atrial fibrillation, CAD, asthma/COPD, HTN, hypothyroidism, anxiety, recent hospitalization for pneumonia and pulmonary embolism on Xarelto, presents with chest pains and epistaxis. The patient reports she was in [facility] in [place] for almost 2 weeks, initially diagnosed with pneumonia, then had severe chest pains during hospitalization, diagnosed with pulmonary embolism , started on Xarelto, was on the medication for almost a week, and then discharged home on Wednesday 05/02. The patient's daughter is at bedside and assists with the history. Reportedly the patient was kept in the hospital for almost 2 weeks secondary to one positive blood culture however repeat blood cultures were negative. The patient reports the next day after discharge, she develop acute left sided nosebleed while taking Xarelto. Prior to diagnosis of pulmonary embolism, she was only taking a baby aspirin daily. Last night the patient developed acute chest pain that kept her awake throughout the night. She locates the chest pain to the right upper anterior chest with radiation across to the left anterior chest; described as 8/10 constant pressure pains without any associated shortness of breath/nausea/vomiting/diaphoresis. She states she has been rubbing and holding her chest without any relief. She was given nitroglycerin x3 prior to arrival which alleviated the pain, then received IV morphine in the ED, and now the pain has resolved. Her left nare was packed with posterior packing in the ER, and now the bleeding has subsided. Her data analytics developer is Dr. Rivera. She cannot recall the name of her chief knowledge officer however states she is female, has office in [facility], but only goes to [facility]. The patient said that she felt better. She said that she did not think she was bleeding from her nose down her throat any more. She says she has had bad chest pain for the past few days and she does believe it is from the clots in her lungs. She states that she broke her femur in January and has not been very active or mobile lately. She did say yesterday was the first day she ambulated on both of her feet. She would like to go to a rehabilitation facility after hospitalization to work on her weakness. Review of Systems Except as stated in HPI: all other systems reviewed are Neg Past Family Social History Past Medical History pulmonary embolism on Xarelto, diagnosed April2017 recent pneumonia April2017 anemia atrial fibrillation CAD asthma/COPD HTN hypothyroidism anxiety Past Surgical History hysterectomy pelvic/coccyx fracture s/p repair right hip ORIF with hardware cervical spine fusion C3-4-5 cataract surgery Reported Medications Reported Meds & Active Scripts Active Restoril (Temazepam) 15 Mg Cap 15 Mg PO HS PRN Senna Plus 8.6-50 mg (Sennosides-Docusate Sodium) 1 Tab Tab 1 Tab PO BID Hydrocodone-Acetaminophen 5-325 mg Tab 1 Tab PO Q4H PRN Montelukast (Montelukast Sodium) 10 Mg Tab 10 Mg PO HS Duoneb (Ipratropium-Albuterol Neb) 0.5-2.5 Mg/3 Ml Neb 1 Ampule NEB Q6HR NEB PRN Cipro (Ciprofloxacin HCl) 250 Mg Tab 250 Mg PO Q12HR Aspirin 325 Mg Tab 325 Mg PO DAILY Start Aspirin after Lovenox is completed. Lovenox Inj (Enoxaparin Sodium) 40 Mg/0.4 Ml Syr 40 Mg SQ DAILY Start Aspirin after Lovenox is completed. [place] (Hydrocodone-Acetaminophen) 5-325 mg Tab 1-2 Tab PO Q4H PRN Reported Enalapril (Enalapril Maleate) 2.5 Mg Tab Mg PO BID Topamax (Topiramate) 25 Mg Tab Mg PO BID Lyrica (Pregabalin) 25 Mg Cap 25 Mg PO BID Allergies: Coded Allergies: Adhesives (Verified Allergy, Severe, skin irritation, 05/05/17) Phenobarbital (Verified Allergy, Severe, VOMITING, 05/05/17) Codeine (Verified Allergy, Intermediate, Nausea/Vomiting, 05/05/17) Uncoded Allergies: SOME NARCOTICS (Allergy, Unknown, 07/04/08) Active Ordered Medications Current Medications Medications (Trade) Dose Ordered Sig/Jeny Route Start Time Stop Time Status Last Admin (NS 1000 ml Inj) 1,000 ml @ 100 mls/hr Q10H IV 05/05/17 11:00 05/05/17 10:59 (NS Flush) 2 ml UNSCH PRN IV FLUSH 05/05/17 13:15 (NS Flush) 2 ml BID IV FLUSH 05/05/17 21:00 (Zofran Inj) 4 mg Q6H PRN IVP 05/05/17 13:15 (Tylenol) 650 mg Q6H PRN PO 05/05/17 13:15 (Narcan Inj) 0.4 mg UNSCH PRN IV 05/05/17 13:15 (April-Colace) 1 tab BID PO 05/05/17 21:00 (Milk Of Magnesia Liq) 30 ml Q12H PRN PO 05/05/17 13:15 (Senokot) 17.2 mg Q12H PRN PO 05/05/17 13:15 (Dulcolax Supp) 10 mg DAILY PRN RECTAL 05/05/17 13:15 (Lactulose Liq) 30 ml DAILY PRN PO 05/05/17 13:15 (Catapres) 0.1 mg Q6H PRN PO 05/05/17 13:15 (Vasotec Inj) 1.25 mg Q6H PRN IV PUSH 05/05/17 13:15 Family History Mother with CVA Father with DVT complications Sister with CVA Social History Denies any tobacco, alcohol, or illicit drug use. Has been at SNF for 2.5months Since hip fracture, has been ambulating few steps with walker, and yesterday was able to walk 30feet with physical therapy Physical Exam Vital Signs Vital Signs Date Time Temp Pulse Resp B/P Pulse Ox O2 Delivery O2 Flow Rate FiO2 05/05/17 09:26 Room Air 05/05/17 09:22 97.8 67 21 160/73 95 Physical Exam GENERAL: Well-nourished, well-developed pleasant elderly female patient in NAD. SKIN: Warm and dry. No rash. HEAD: Normocephalic. Atraumatic. EYES: Pupils equal and round. No scleral icterus. No injection or drainage. ENT: Left nare with packing in place, no active bleeding around nare or in posterior oropharynx. Mucous membranes pink and moist. Buccal mucosa with erythematous plaque, angles of mouth with erythema, consistent with angular cheilitis. NECK: Supple. Trachea midline. CARDIOVASCULAR: Regular rate and rhythm. S1, S2 noted. No murmur appreciated. RESPIRATORY: No accessory muscle use. Clear to auscultation. Breath sounds equal bilaterally. GASTROINTESTINAL: Abdomen soft, non-tender, nondistended. Normoactive bowel sounds x4. MUSCULOSKELETAL: No obvious deformities. Extremities without clubbing, cyanosis , or edema. NEUROLOGICAL: Awake and alert. No obvious cranial nerve deficits. Motor grossly within normal limits. Normal speech. PSYCHIATRIC: Appropriate mood and affect; insight and judgment normal. Laboratory Laboratory Tests Test 05/05/17 05/05/17 10:30 11:30 White Blood Count 11.5 Red Blood Count 3.86 Hemoglobin 12.5 Hematocrit 38.3 Mean Corpuscular Volume 99.2 Mean Corpuscular Hemoglobin 32.3 Mean Corpuscular Hemoglobin 32.5 Concent Red Cell Distribution Width 16.9 Platelet Count 291 Mean Platelet Volume 8.0 Neutrophils (%) (Auto) 71.5 Lymphocytes (%) (Auto) 22.2 Monocytes (%) (Auto) 4.9 Eosinophils (%) (Auto) 0.9 Basophils (%) (Auto) 0.5 Neutrophils # (Auto) 8.2 Lymphocytes # (Auto) 2.5 Monocytes # (Auto) 0.6 Eosinophils # (Auto) 0.1 Basophils # (Auto) 0.1 CBC Comment AUTO DIFF Differential Comment AUTO DIFF CONFIRMED Platelet Estimate NORMAL Platelet Morphology Comment NORMAL Red Cell Morphology Comment NORMAL Sodium Level 136 Potassium Level 4.9 Chloride Level 101 Carbon Dioxide Level 25.6 Anion Gap 9 Blood Urea Nitrogen 22 Creatinine 0.71 Estimat Glomerular Filtration 78 Rate Random Glucose 71 Calcium Level 8.5 Total Bilirubin 0.4 Aspartate Amino Transf 39 (AST/SGOT) Alanine Aminotransferase 29 (ALT/SGPT) Alkaline Phosphatase 65 Total Creatine Kinase 61 Troponin I 0.04 B-Type Natriuretic Peptide 84 Total Protein 5.5 Albumin 2.7 Prothrombin Time 11.4 Prothromb Time International 1.0 Ratio Activated Partial 24.2 Thromboplast Time Urine Color YELLOW Urine Turbidity HAZY Urine pH 8.0 Urine Specific [place] 1.012 Urine Protein NEG Urine Glucose (UA) NEG Urine Ketones NEG Urine Occult Blood NEG Urine Nitrite NEG Urine Bilirubin NEG Urine Urobilinogen LESS THAN 2.0 Urine Leukocyte Esterase NEG Urine RBC LESS THAN 1 Urine WBC 1 Urine Squamous Epithelial 1 Cells Urine Amorphous Sediment MOD Urine Bacteria OCC Urine Hyaline Casts 1 Microscopic Urinalysis Comment CULT NOT INDICATED Result Diagram: 05/05/17 1030 05/05/17 1030 Imaging Last Impressions Chest X-Ray 05/05/17 1051 Signed Impressions: Service Date/Time: Friday, May 05, 2017 11:10 - CONCLUSION: Normal examination. Mild diffuse interstitial prominence particularly lung bases improved since January Iker Jesus MD Assessment and Plan Problem List: (1) Epistaxis ICD Code: R04.0 Status: Acute (2) Chest pain ICD Code: R07.9 Status: Acute (3) Pulmonary embolism ICD Code: I26.99 Status: Acute Assessment and Plan 86-year-old female from [facility] with history of anemia, atrial fibrillation, CAD, asthma/COPD, HTN, hypothyroidism, anxiety, recent hospitalization for pneumonia and pulmonary embolism on Xarelto, presents with chest pains and epistaxis. Subacute Pulmonary Embolism: diagnosed last week while hospitalized at [facility]. Failed outpatient treatment as she developed epistaxis while on Xarelto. Patient still with ongoing chest pains. -will try to obtain records. -holding patient's Xarelto for now -consult hematology for assistance with anticoagulation Anticoagulation currently on hold in the setting of epistaxis. Follow-up with hematology. Once bleeding has stopped will need anticoagulation. Acute Posterior Epistaxis: s/p left nasal packing in the ED. -given Kcentra injection in the ED to reverse coagulopathy -holding patient's Xarelto -monitor H&H, currently stable with Hgb 12.5 -continue nasal packing -control blood pressure -consult ENT Seems stable following nasal packing. ENT valuation pending. Continue to monitor hemoglobin and transfuse as needed. Anticoagulation on hold. Chest Pain: suspect secondary to pulmonary embolism, however symptoms relieved by Nitro/Morphine. Initial troponin 0.04, and EKG without acute ST elevation/ depression but does have q waves in inferior leads, consistent with previous EKG in 2014. -Continue to trend serial cardiac enzymes and EKGs -Continue nitro prn chest pain (tried ordering IV morphine, talked with pharmacist, hospital out of 2-4mg vials, will try to order later today) -Monitor on telemetry -continue patient's home meds once med rec updated Likely secondary to PE but continue to monitor troponins and on telemetry. Angular Cheilitis with Oropharyngeal Candidiasis: patient with evidence of thrush on buccal mucosa with angular cheilitis -start on clotrimazole troches 5x/day [id number] All other medical conditions stable, continue home medications once med list updated. DVT Prophylaxis: teds/SCDs, avoid chemical prophylaxis for now with epistaxis Code Status Full Code Discussed Condition With Patient, Patient's daughter, Dr. Jerome, Dr. Hurst Physician Certification 2 Midnight Certification Type: Admission for Inpatient Services Order for Inpatient Services The services are ordered in accordance with Medicare regulations or non- Medicare payer requirements, as applicable. In the case of services not specified as inpatient-only, they are appropriately provided as inpatient services in accordance with the 2-midnight benchmark. Estimated LOS (days): 3 days is the estimated time the patient will need to remain in the hospital, assuming treatment plan goals are met and no additional complications. Post-Hospital Plan: SNF Medical Decision Making MDM Remarks The exam, history, and the medical decision-making described in the above note were completed with the assistance of the mid-level provider. I reviewed and agree with the findings presented. I attest that I had a [id number] encounter with the patient on the same day, and personally performed and documented my assessment and findings in the medical record. Problem Qualifiers (1) Chest pain: Qualified Code: R07.9 - Chest pain, unspecified type Kiya Crowley PA-C May 05, 2017 14:58 Willard Hurst DO May 05, 2017 17:04
[2017-05-05 15:34] VITALS: BP 153/72; PULSE 70; RESP 17; TEMP 97.7; O2SAT 95
[2017-05-05] MEDS: CLOTRIMAZOLE 10 MG TROCHE BUCCAL SCH ×2 (17:47→21:24)
--- NOTE | 2017-05-05 19:57 | EKG ---
Date Performed: 05/05/2017 Time Performed: 09:21:49 PTAGE: 86 years EKG: Sinus rhythm POSSIBLE LEFT ATRIAL ENLARGEMENT INFERIOR MYOCARDIAL INFARCTION ABNORMAL ECG PREVIOUS TRACING 02/11/2017 07.52.34 Since previous tracing, no significant change noted DOCTOR: Yisel Willis Interpretating Date/Time 05/05/2017 19:55:28
[2017-05-05] MEDS: DOCUSATE SODIUM 50 MG/SENNA 8.6 MG TAB PO SCH (20:11)
[2017-05-05] MEDS: SODIUM CHLORIDE 0.9% FLUSH 10 ML FLUSH IV FLUSH SCH (20:11)
[2017-05-05] MEDS: ACETAMINOPHEN/HYDROcodone 325 MG/5 MG TAB PO PRN (20:11)
[2017-05-05 20:27] VITALS: BP 133/60; PULSE 72; RESP 18; TEMP 98.2; O2SAT 96
[2017-05-05 20:45] VITALS: PULSE 73
[2017-05-06] VITALS (7 sets, daily range): BP systolic 126–170; BP diastolic 60–80; PULSE 70–83; RESP 18–20; TEMP 97.8–98.2; O2SAT 95–97
[2017-05-06] MEDS: ACETAMINOPHEN/HYDROcodone 325 MG/5 MG TAB PO PRN ×4 (02:49→21:45)
[2017-05-06] MEDS: SODIUM CHLOR 0.9% 1000 ML INJ 1,000 ML IV SCH ×2 (06:05→16:49)
[2017-05-06] MEDS: HEPARIN-D5W INJ 250 ML IV SCH (06:10)
[2017-05-06] MEDS: CLOTRIMAZOLE 10 MG TROCHE BUCCAL SCH ×5 (06:20→21:45)
[2017-05-06 06:50] LABS: AUTOMATED NEUTROPHIL # 8.1 TH/MM3 (1.8-7.7); BASOPHIL % 0.3 % (0.0-2.0); EOSINOPHIL # 0.1 TH/MM3 (0-0.4); EOSINOPHIL % 1.3 % (0.0-4.0); HEMATOCRIT 37.5 % (35.0-46.0); LYMPH % 16.8 % (9.0-44.0); LYMPHOCYTE # 1.8 TH/MM3 (1.0-4.8); MEAN CELL VOLUME 99.1 FL (80.0-100.0); MEAN CORPUSCULAR HEMOGLOBIN 32.4 PG (27.0-34.0); MEAN CORPUSCULAR HGB CONC 32.6 % (32.0-36.0); MONO % 5.2 % (0.0-8.0); NEUT % 76.4 % (16.0-70.0); PLATELET COUNT 245 TH/MM3 (150-450); RED BLOOD COUNT 3.78 MIL/MM3 (4.00-5.30); RED CELL DISTRIBUTION WIDTH 17.2 % (11.6-17.2); WHITE BLOOD COUNT 10.6 TH/MM3 (4.0-11.0)
[2017-05-06] MEDS ORDERED: HEPARIN SODIUM - IV 10,000 UNITS/10 ML VIAL IV PRN ×2 (07:00)
[2017-05-06 07:04] LABS: HEMO FLAGS AUTO DIFF
[2017-05-06 07:14] LABS: BICARBONATE 26.7 MEQ/L (21.0-32.0)
[2017-05-06] MEDS: SODIUM CHLORIDE 0.9% FLUSH 10 ML FLUSH IV FLUSH SCH ×2 (08:13→21:00)
[2017-05-06] MEDS: DOCUSATE SODIUM 50 MG/SENNA 8.6 MG TAB PO SCH ×2 (08:13→21:45)
[2017-05-06 08:26] LABS: OVALOCYTES 1+ (NORMAL); PLATELET ESTIMATE SMEAR NORMAL (NORMAL); PLATELET MORPHOLOGY NORMAL (NORMAL); SCAN/DIFF AUTO DIFF CONFIRMED
--- NOTE | 2017-05-06 08:29 | MB ---
cc: EVY MADSEN RUBY ANNE E. M.D. DATE OF 1930 DATE OF SERVICE 05/05/[address] Madsen CHIEF COMPLAINT [address]. Madsen requests a consultation for Mrs. Blood regarding epistaxis associated with Xarelto with recent pulmonary embolism. HISTORY OF PRESENT ILLNESS Mrs. Blood is an 86-year-old woman whose history began from hospital admission on 02/11/2017. She was ambulating from her bathroom to her kitchen when she slipped and fell on hard wood floor landing on her right hip. Movement exacerbates her pain. She was found to have a right hip intertrochanteric fracture with mild displacement and angulation. There is chronic superior and inferior pubic rami fractures bilaterally with posterior surgical repair of multiple pelvic fractures. She was treated by Dr. Swan and underwent right hip treatment of intertrochanteric/subtrochanteric femur fracture with intramedullary nail. She was stabilized during the hospitalization and ultimately discharged to a shelter facility on 02/14/2017. She had instructions for DVT prophylaxis with Lovenox 40 mg subcu once daily. She had 10 days of Lovenox prior to starting aspirin 325 mg daily as prophylaxis. Apparently she had complications at the shelter facility. She was transferred to [place] several days prior to presentation to [facility] again. She was diagnosed with pulmonary embolism. Her aspirin was stopped and she was placed on Xarelto. She has had recurrent epistaxis on the left side of the nose. She presented, however, with chest pains. In the emergency room she underwent packing of her left naris. The bleeding subsided. She was given a dose of Kcentra to stop her bleeding. She was taking supposedly a baby aspirin, although baby aspirin is not listed on her medication list from the [facility]. Her medical records from [facility] in [place] were not available during the consultation. Transfer and discharge report from [facility] were reviewed. It included his rivaroxaban 15 mg b.i.d. which was started on 05/01/2017 when the patient was returned back to the shelter [facility]. Presumably she had been on rivaroxaban of Xarelto while at [facility] in [place]. She is listed as having atrial fibrillation and she was admitted to [facility] with chest pains. Her history is supplemented by her daughter who was called on the phone. The patient complains mainly of discomfort in the left naris. It is difficult to breathe out of the right naris. She has a herpetic eruption on the right angle of the mouth. Her mouth is dry from mouth breathing. She reports not being able to walk until recently. She has not been very active because of her femur fracture. She denies any overt bleeding while on the anticoagulant therapy. However, she could not tell much of what she was taking. PAST MEDICAL HISTORY 1. Recent pulmonary embolism. 2. Pneumonia. 3. Atrial fibrillation. 4. Coronary artery disease. 5. Asthma/COPD. 6. Hypertension. 7. Hypothyroidism. 8. History of seizure. 9. Anxiety. 10. Previous pelvic fracture. PAST SURGICAL HISTORY 1. Previous pelvic fracture. 2. Right hip ORIF with hardware 3. Cervical spine fusion. 4. Cataract surgery. 5. Hysterectomy. ALLERGIES BUTALBITAL. CODEINE. HYOTHIAMINE. PHENAZOPYRIDINE. PHENOBARBITAL. FAMILY HISTORY Mother is with CVA. Father is with DVT complications. Sister has CVA. SOCIAL HISTORY She resides in the [facility]. She was recently transferred back there after hospitalization where she was diagnosed with a pulmonary embolism. She is . She denies any tobacco, alcohol or illicit drug use. CURRENT MEDICATIONS 1. April-Colace. 2. Mycelex. 3. [place]. 4. Ondansetron p.r.n. 5. Tylenol p.r.n. 6. Narcan p.r.n. 7. Milk of Magnesia p.r.n. 8. Senokot p.r.n. 9. Bisacodyl p.r.n. 10. Lactulose p.r.n. 11. Clonidine p.r.n. 12. Vasotec p.r.n. 13. Aspirin and rivaroxaban are held. PHYSICAL EXAMINATION VITAL SIGNS: Temperature 98.2, heart rate 72, respiratory rate 18, blood pressure 133/60, saturation 96%. GENERAL: Mrs. Blood is a pleasant 86-year-old, pale-appearing elderly woman. She looks tired but younger than stated age. HEENT: Her pupils are round, reactive to light and accommodation. Oropharynx is dry. There is a packing in the left naris. There is dried crust over the angle of the right side of her mouth. LUNGS: Clear. CARDIOVASCULAR: Exam reveals a rate-controlled rhythm. ABDOMEN: Soft and nontender. LOWER EXTREMITIES: No edema. SKIN: There are multiple senile purpura lesions in both lower extremities. There is ecchymotic bruise over the right IV site and the right wrist. No lower extremity or arm swelling. LABORATORY DATA Significant for a normal hemoglobin, platelet count and hematocrit of 11.5. Chemistry shows normal renal function with an estimated glomerular filtration rate of 78, AST is 39. PT/PTT are normal. Urinalysis is positive for occasional bacteria and hazy-appearing. ASSESSMENT AND PLAN Mrs. Blood is an 86-year-old woman with multiple medical problems described above. She is listed to have recent femur fracture, newly diagnosed pulmonary embolism and pneumonia. She was on anticoagulant therapy with Xarelto and aspirin. It was recently stopped for recurrent epistaxis over the last three days. She has competing needs. I am unable to ascertain the last dose of Xarelto, whether it was from this morning on 05/05 or from last night. She seems to have responded to the small dose of Kcentra which suggests that maybe her last dose was last night and the morning dose was not given. She will need to resume anticoagulant therapy. ENT was consulted. We need to start on fractionated heparin that we may turn the anticoagulation on and off. I will request the medical records from [facility] in [place]. This is to confirm a diagnosis of pulmonary embolism. She has multiple reasons to be an anticoagulant therapy. She is at high risk for bleeding in light of the combination aspirin and Xarelto. She has three risk factors, age over 80, mild renal insufficiency and decreased weight. I recommend continued monitoring and start of unfractionated heparin in the morning pending no recurrence of her epistaxis. It would be at least washout of 24 hours without anticoagulation. It would allow the epistaxis to stop. In light of her pulmonary embolism, anticoagulant therapy will need to be restarted pending of course that bleeding could be controlled. Fortunately her hemoglobin is stable. Her questions were answered to her satisfaction. Her other medical problems are addressed by the primary team. MD YOU Green/CHANDAN /8:52 PM /8:04 AM
--- NOTE | 2017-05-06 09:56 | PD.ONC.PN ---
Subjective Subjective Remarks Afebrile overnight. Patient denies any bleeding overnight. Started heparin gtt this AM. Objective Data Date Time Temp Pulse Resp B/P Pulse Ox O2 Delivery O2 Flow Rate FiO2 05/06/17 08:00 98.1 75 20 168/73 96 05/06/17 05:06 21 05/06/17 04:58 97.8 70 18 126/60 96 05/06/17 01:01 97.9 74 18 130/62 96 05/05/17 20:45 73 05/05/17 20:45 Room Air 05/05/17 20:27 98.2 72 18 133/60 96 05/05/17 15:34 97.7 70 17 153/72 95 05/05/17 14:26 78 20 176/75 05/06/17 05/06/17 05/06/17 06:59 14:59 22:59 Intake Total 2140 ml Balance 2140 ml Result Diagram: 05/06/17 0602 05/06/17 0602 Laboratory Results Laboratory Tests Test 05/05/17 05/05/17 05/05/17 05/05/17 10:30 11:30 17:03 22:38 White Blood Count 11.5 TH/MM3 Red Blood Count 3.86 MIL/MM3 Hemoglobin 12.5 GM/DL Hematocrit 38.3 % Mean Corpuscular Volume 99.2 FL Mean Corpuscular Hemoglobin 32.3 PG Mean Corpuscular Hemoglobin 32.5 % Concent Red Cell Distribution Width 16.9 % Platelet Count 291 TH/MM3 Mean Platelet Volume 8.0 FL Neutrophils (%) (Auto) 71.5 % Lymphocytes (%) (Auto) 22.2 % Monocytes (%) (Auto) 4.9 % Eosinophils (%) (Auto) 0.9 % Basophils (%) (Auto) 0.5 % Neutrophils # (Auto) 8.2 TH/MM3 Lymphocytes # (Auto) 2.5 TH/MM3 Monocytes # (Auto) 0.6 TH/MM3 Eosinophils # (Auto) 0.1 TH/MM3 Basophils # (Auto) 0.1 TH/MM3 CBC Comment AUTO DIFF Differential Comment AUTO DIFF CONFIRMED Platelet Estimate NORMAL Platelet Morphology Comment NORMAL Red Cell Morphology Comment NORMAL Sodium Level 136 MEQ/L Potassium Level 4.9 MEQ/L Chloride Level 101 MEQ/L Carbon Dioxide Level 25.6 MEQ/L Anion Gap 9 MEQ/L Blood Urea Nitrogen 22 MG/DL Creatinine 0.71 MG/DL Estimat Glomerular Filtration 78 ML/MIN Rate Random Glucose 71 MG/DL Calcium Level 8.5 MG/DL Total Bilirubin 0.4 MG/DL Aspartate Amino Transf 39 U/L (AST/SGOT) Alanine Aminotransferase 29 U/L (ALT/SGPT) Alkaline Phosphatase 65 U/L Total Creatine Kinase 61 U/L 21 U/L 25 U/L Troponin I 0.04 NG/ML 0.05 NG/ML 0.04 NG/ML B-Type Natriuretic Peptide 84 PG/ML Total Protein 5.5 GM/DL Albumin 2.7 GM/DL Prothrombin Time 11.4 SEC Prothromb Time International 1.0 RATIO Ratio Activated Partial 24.2 SEC Thromboplast Time Urine Color YELLOW Urine Turbidity HAZY Urine pH 8.0 Urine Specific [place] 1.012 Urine Protein NEG mg/dL Urine Glucose (UA) NEG mg/dL Urine Ketones NEG mg/dL Urine Occult Blood NEG Urine Nitrite NEG Urine Bilirubin NEG Urine Urobilinogen LESS THAN 2.0 MG/DL Urine Leukocyte Esterase NEG Urine RBC LESS THAN 1 /hpf Urine WBC 1 /hpf Urine Squamous Epithelial 1 /hpf Cells Urine Amorphous Sediment MOD Urine Bacteria OCC /hpf Urine Hyaline Casts 1 /lpf Microscopic Urinalysis Comment CULT NOT INDICATED Test 05/06/17 06:02 White Blood Count 10.6 TH/MM3 Red Blood Count 3.78 MIL/MM3 Hemoglobin 12.2 GM/DL Hematocrit 37.5 % Mean Corpuscular Volume 99.1 FL Mean Corpuscular Hemoglobin 32.4 PG Mean Corpuscular Hemoglobin 32.6 % Concent Red Cell Distribution Width 17.2 % Platelet Count 245 TH/MM3 Mean Platelet Volume 7.1 FL Neutrophils (%) (Auto) 76.4 % Lymphocytes (%) (Auto) 16.8 % Monocytes (%) (Auto) 5.2 % Eosinophils (%) (Auto) 1.3 % Basophils (%) (Auto) 0.3 % Neutrophils # (Auto) 8.1 TH/MM3 Lymphocytes # (Auto) 1.8 TH/MM3 Monocytes # (Auto) 0.5 TH/MM3 Eosinophils # (Auto) 0.1 TH/MM3 Basophils # (Auto) 0.0 TH/MM3 CBC Comment AUTO DIFF Differential Comment AUTO DIFF CONFIRMED Platelet Estimate NORMAL Platelet Morphology Comment NORMAL Ovalocytes 1+ Sodium Level 135 MEQ/L Potassium Level 4.0 MEQ/L Chloride Level 103 MEQ/L Carbon Dioxide Level 26.7 MEQ/L Anion Gap 5 MEQ/L Blood Urea Nitrogen 18 MG/DL Creatinine 0.62 MG/DL Estimat Glomerular Filtration 92 ML/MIN Rate Random Glucose 76 MG/DL Calcium Level 7.8 MG/DL Imaging Studies Last 24 hours Impressions Chest X-Ray 05/05/17 1051 Signed Impressions: Service Date/Time: Friday, May 05, 2017 11:10 - CONCLUSION: Normal examination. Mild diffuse interstitial prominence particularly lung bases improved since January Iker Jesus MD Administered Medications Medications (Trade) Dose Ordered Sig/Jeny Route PRN Reason Start Time Stop Time Status Last Admin Dose Admin Sodium Chloride (NS 1000 ml Inj) 1,000 ml @ 100 mls/hr Q10H IV 05/05/17 11:00 05/06/17 06:05 Sodium Chloride (NS Flush) 2 ml BID IV FLUSH 05/05/17 21:00 05/05/17 20:11 Senna/Docusate Sodium 1 tab 1 tab BID PO 05/05/17 21:00 05/06/17 08:13 Heparin Sodium/ Dextrose (Heparin-D5W Inj) 250 ml @ 0 mls/hr TITRATE IV 05/06/17 07:00 05/06/17 06:10 Objective Remarks GENERAL: Pleasant elderly female upright in bed SKIN: Warm and dry. HEAD: Normocephalic. packing in left nare, no bleeding EYES: No injection or drainage. NECK: Supple, trachea midline. CARDIOVASCULAR: Regular rate and rhythm RESPIRATORY: Breath sounds equal bilaterally. No accessory muscle use. GASTROINTESTINAL: Abdomen soft, non-tender, nondistended. EXTREMITIES: No cyanosis NEUROLOGICAL: No obvious focal deficit. Awake, alert, and oriented x3. Assessment/Plan Problem List: (1) Pulmonary embolism Status: Acute Plan: --on heparin gtt --was on xarelto previously, but developed epistaxis. (2) Epistaxis Status: Acute Plan: --hgb stable --ENT consulted --packing in place Assessment 86y/o female with epistaxis associated with Xarelto with recent pulmonary embolism. h/o Recent pulmonary embolism. Pneumonia. Atrial fibrillation. Coronary artery disease. Asthma/COPD. Hypertension. Hypothyroidism. History of seizure.Anxiety. Previous pelvic fracture. Right hip ORIF with hardware Plan 1. monitor CBC 2. start heparin gtt, monitor closely for bleeding. 3. request records from [facility] Attending Statement The exam, history, and the medical decision-making described in the above note were completed with the assistance of the mid-level provider. I reviewed and agree with the findings presented. I attest that I had a [id number] encounter with the patient on the same day, and personally performed and documented my assessment and findings in the medical record. Tolerating heparin well, no recurrence of epistaxis however nasal packing still in place. Discussed plan to check US LE r/o source of thromboembolic event. Pt state she had a PE and pneumonia in R lung, medical records already requested from [facility]. Hold Xarelto. Anticipate resume new oral anticoagulant when DC, at a dose reduction in light of age>80 and bleeding on standard dose. ENT evaluation pending. Cherie Whitfield May 06, 2017 09:56 Shawnee Medina MD May 06, 2017 20:17
[2017-05-06] MEDS ORDERED: MORPHINE SULFATE 4 MG/ML INJ IV PUSH PRN (13:00)
--- NOTE | 2017-05-06 13:10 | HHI.PR ---
Subjective Remarks The patient's granddaughter was at the bedside. The patient said that she had significant pain around her face and nose. She said she has been out of bed a couple of times today. She has been having bowel movements. She wanted to know when she could have the nasal packing removed. Discussed with nursing. Objective Vitals Vital Signs Date Time Temp Pulse Resp B/P Pulse Ox O2 Delivery O2 Flow Rate FiO2 05/06/17 12:00 98.2 76 20 149/72 95 05/06/17 12:00 98.2 76 05/06/17 11:21 96 05/06/17 08:00 98.1 75 20 168/73 96 05/06/17 05:06 21 05/06/17 04:58 97.8 70 18 126/60 96 05/06/17 01:01 97.9 74 18 130/62 96 05/05/17 20:45 73 05/05/17 20:45 Room Air 05/05/17 20:27 98.2 72 18 133/60 96 05/05/17 15:34 97.7 70 17 153/72 95 05/05/17 14:26 78 20 176/75 I/O 05/05/17 05/05/17 05/05/17 05/06/17 05/06/17 05/06/17 07:00 15:00 23:00 07:00 15:00 23:00 Intake Total 2140 ml Balance 2140 ml Intake Oral 240 ml IV Total 1900 ml # Voids 5 Result Diagram: 05/06/17 0602 05/06/17 0602 Imaging Last Impressions Chest X-Ray 05/05/17 1051 Signed Impressions: Service Date/Time: Friday, May 05, 2017 11:10 - CONCLUSION: Normal examination. Mild diffuse interstitial prominence particularly lung bases improved since January Iker Jesus MD Objective Remarks GENERAL: Well-nourished, well-developed pleasant elderly female patient in [facility]. SKIN: Warm and dry. No rash. HEAD: Normocephalic. Atraumatic. EYES: Pupils equal and round. No scleral icterus. No injection or drainage. ENT: Left nare with packing in place, no active bleeding around nare or in posterior oropharynx. Mucous membranes pink and moist. NECK: Supple. Trachea midline. CARDIOVASCULAR: Regular rate and rhythm. S1, S2 noted. No murmur appreciated. RESPIRATORY: Slight crackles appreciated. GASTROINTESTINAL: Abdomen soft, non-tender, nondistended. Normoactive bowel sounds x4. MUSCULOSKELETAL: No obvious deformities. Extremities without clubbing, cyanosis , or edema. NEUROLOGICAL: Awake and alert. No obvious cranial nerve deficits. Motor grossly within normal limits. Normal speech. PSYCHIATRIC: Appropriate mood and affect; insight and judgment normal. Medications and IVs Current Medications Medications (Trade) Dose Ordered Sig/Jeny Route Start Time Stop Time Status Last Admin (NS 1000 ml Inj) 1,000 ml @ 100 mls/hr Q10H IV 05/05/17 11:00 05/06/17 06:05 (NS Flush) 2 ml UNSCH PRN IV FLUSH 05/05/17 13:15 (NS Flush) 2 ml BID IV FLUSH 05/05/17 21:00 05/05/17 20:11 (Zofran Inj) 4 mg Q6H PRN IVP 05/05/17 13:15 (Tylenol) 650 mg Q6H PRN PO 05/05/17 13:15 (Narcan Inj) 0.4 mg UNSCH PRN IV 05/05/17 13:15 (April-Colace) 1 tab BID PO 05/05/17 21:00 05/06/17 08:13 (Milk Of Magnesia Liq) 30 ml Q12H PRN PO 05/05/17 13:15 (Senokot) 17.2 mg Q12H PRN PO 05/05/17 13:15 (Dulcolax Supp) 10 mg DAILY PRN RECTAL 05/05/17 13:15 (Lactulose Liq) 30 ml DAILY PRN PO 05/05/17 13:15 (Catapres) 0.1 mg Q6H PRN PO 05/05/17 13:15 (Vasotec Inj) 1.25 mg Q6H PRN IV PUSH 05/05/17 13:15 (Nitrostat Sl) 0.4 mg Q5M PRN SL 05/05/17 14:45 (Heparin Inj) 2,500 units UNSCH PRN IV 05/06/17 07:00 Heparin Sodium (Porcine) 2500 units 2,500 units UNSCH PRN IV 05/06/17 07:00 (Heparin-D5W Inj) 250 ml @ 0 mls/hr TITRATE IV 05/06/17 07:00 05/06/17 06:10 ([place] 5-325 Mg) 1 tab Q4H PRN PO 05/06/17 11:15 05/06/17 12:22 (Morphine Inj) 2 mg Q6HR PRN IV PUSH 05/06/17 13:00 UNV Current Medications Medications (Trade) Dose Ordered Sig/Jeny Route Start Time Stop Time Status Last Admin (NS 1000 ml Inj) 1,000 ml @ 100 mls/hr Q10H IV 05/05/17 11:00 05/06/17 06:05 (NS Flush) 2 ml UNSCH PRN IV FLUSH 05/05/17 13:15 (NS Flush) 2 ml BID IV FLUSH 05/05/17 21:00 05/05/17 20:11 (Zofran Inj) 4 mg Q6H PRN IVP 05/05/17 13:15 (Tylenol) 650 mg Q6H PRN PO 05/05/17 13:15 (Narcan Inj) 0.4 mg UNSCH PRN IV 05/05/17 13:15 (April-Colace) 1 tab BID PO 05/05/17 21:00 05/06/17 08:13 (Milk Of Magnesia Liq) 30 ml Q12H PRN PO 05/05/17 13:15 (Senokot) 17.2 mg Q12H PRN PO 05/05/17 13:15 (Dulcolax Supp) 10 mg DAILY PRN RECTAL 05/05/17 13:15 (Lactulose Liq) 30 ml DAILY PRN PO 05/05/17 13:15 (Catapres) 0.1 mg Q6H PRN PO 05/05/17 13:15 (Vasotec Inj) 1.25 mg Q6H PRN IV PUSH 05/05/17 13:15 (Nitrostat Sl) 0.4 mg Q5M PRN SL 05/05/17 14:45 (Heparin Inj) 2,500 units UNSCH PRN IV 05/06/17 07:00 Heparin Sodium (Porcine) 2500 units 2,500 units UNSCH PRN IV 05/06/17 07:00 (Heparin-D5W Inj) 250 ml @ 0 mls/hr TITRATE IV 05/06/17 07:00 05/06/17 06:10 ([place] 5-325 Mg) 1 tab Q4H PRN PO 05/06/17 11:15 05/06/17 12:22 (Morphine Inj) 2 mg Q6HR PRN IV PUSH 05/06/17 13:00 UNV A/P Problem List: (1) Epistaxis ICD Code: R04.0 Status: Acute (2) Chest pain ICD Code: R07.9 Status: Acute (3) Pulmonary embolism ICD Code: I26.99 Status: Acute Assessment and Plan 86-year-old female from [facility] with history of anemia, atrial fibrillation, CAD, asthma/COPD, HTN, hypothyroidism, anxiety, recent hospitalization for pneumonia and pulmonary embolism on Xarelto, presents with chest pains and epistaxis. Subacute Pulmonary Embolism: diagnosed last week while hospitalized at [facility]. She developed epistaxis while on Xarelto. Patient still with ongoing chest pains at times. Hematology consult appreciated. -will try to obtain records. -holding patient's Xarelto for now. Heparin gtt started by hematology. -oxygen and nebs as needed. Incentive spirometry. Acute Posterior Epistaxis: s/p left nasal packing in the ED. -given Kcentra injection in the ED to reverse coagulopathy -holding patient's Xarelto. On heparin gtt per hematology. -monitor H&H, currently stable. -continue nasal packing -control blood pressure -ENT consult pending. Chest Pain: suspect secondary to pulmonary embolism, however symptoms relieved by Nitro/Morphine. Initial troponin 0.04, and EKG without acute ST elevation/ depression but does have q waves in inferior leads, consistent with previous EKG in 2014. -Continue to trend serial cardiac enzymes and EKGs. Stable. -pain control as needed. -Monitor on telemetry Angular Cheilitis with Oropharyngeal Candidiasis: patient with evidence of thrush on buccal mucosa with angular cheilitis -start on clotrimazole troches 5x/day [id number] All other medical conditions stable, continue home medications once med list updated. DVT Prophylaxis: Heparin gtt Discharge Planning Awaiting ENT evaluation Problem Qualifiers (1) Chest pain: Qualified Code: R07.9 - Chest pain, unspecified type Willard Hurst DO May 06, 2017 13:10
[2017-05-06] MEDS: ENALAPRIL MALEATE 2.5 MG TAB PO SCH ×2 (13:15→21:45)
[2017-05-06] MEDS ORDERED: TEMAZEPAM 15 MG CAP PO PRN (13:15)
[2017-05-06 13:43] LABS: APTT (PATIENT) 54.1 SEC (24.3-30.1)
[2017-05-06] MEDS: cloNIDine HCL 0.1 MG TAB PO PRN (16:49)
[2017-05-06] MEDS: TOPIRAMATE 25 MG TAB PO SCH ×2 (16:49→21:45)
[2017-05-06] MEDS: PETROLATUM 49%/ZINC OXIDE 15% 4 OUNCE TUBE TOPICAL SCH (16:49)
--- NOTE | 2017-05-06 18:44 | EKG ---
Date Performed: 05/05/2017 Time Performed: 21:59:44 PTAGE: 86 years EKG: Sinus rhythm INFERIOR MYOCARDIAL INFARCTION , OF INDETERMINATE AGE ABNORMAL ECG PREVIOUS TRACING : 05/05/2017 16.37 Compared to prior tracing no significant change DOCTOR: Kentrell Carpenter Interpretating Date/Time 05/06/2017 18:42:16
--- NOTE | 2017-05-06 19:00 | EKG ---
Date Performed: 05/05/2017 Time Performed: 16:37:06 PTAGE: 86 years EKG: Sinus rhythm LEFT ATRIAL ENLARGEMENT INFERIOR MYOCARDIAL INFARCTION , OF INDETERMINATE AGE ABNORMAL ECG PREVIOUS TRACING : 05/05/2017 09.21 Compared to prior tracing no significant change DOCTOR: Kentrell Carpenter Interpretating Date/Time 05/06/2017 18:59:21
[2017-05-06] MEDS: MONTELUKAST SODIUM 10 MG TAB PO SCH (21:00)
[2017-05-06 21:03] LABS: APTT (PATIENT) 87.2 SEC (24.3-30.1)
[2017-05-06] MEDS: PREGABALIN 25 MG CAP PO SCH (21:45)
--- NOTE | 2017-05-06 22:27 | RADRPT ---
EXAM DATE/TIME: 05/06/2017 20:53 [place] COMPARISON: No previous studies available for comparison. INDICATIONS : Leg swelling. MEDICAL HISTORY : Macular degeneration. Hypertenion. CAD. Afib. SURGICAL HISTORY : Cervical fixation. Hysterectomy. Left hip surgery. ENCOUNTER: Initial ACUITY: 1 day PAIN SCORE: 0/10 LOCATION: Bilateral leg. TECHNIQUE: Venous ultrasound of the left and right leg was performed from the inguinal ligament to the proximal calf. Real-time, color Doppler and spectral tracing, compression and augmentation techniques were us ed. FINDINGS: RIGHT LEG: There is normal compressibility of the deep venous system from the inguinal region to the proximal ca lf. No echogenic clot is seen in the lumen of the common femoral, femoral, and posterior tibial vein s. There is a normal response of the venous system to proximal and distal augmentation and respirati on. There is thrombus identified within the right heel vein which does not compress. It is occlusive in appearance. LEFT LEG: There is occlusive thrombus within the distal femoral vein, popliteal, peroneal veins. Posterior tibi al vein is patent. There is flow present in the mid and proximal femoral vein as well as flow in the common femoral and iliac veins. CONCLUSION: 1. DVT is present bilaterally as described above. Delta Montero MD on May 06, 2017 at 22:24 Board Certified Radiologist. This report was verified electronically.
[2017-05-07] VITALS: BP 150/68; PULSE 71; RESP 20; TEMP 98; O2SAT 94
[2017-05-07] MEDS: ACETAMINOPHEN/HYDROcodone 325 MG/5 MG TAB PO PRN ×6 (02:17→23:38)
[2017-05-07] MEDS: SODIUM CHLOR 0.9% 1000 ML INJ 1,000 ML IV SCH ×2 (03:22→23:38)
[2017-05-07 03:56] LABS: AUTOMATED NEUTROPHIL # 7.6 TH/MM3 (1.8-7.7); BASOPHIL # 0.1 TH/MM3 (0-0.2); BASOPHIL % 0.8 % (0.0-2.0); EOSINOPHIL # 0.2 TH/MM3 (0-0.4); EOSINOPHIL % 2.2 % (0.0-4.0); HEMATOCRIT 34.7 % (35.0-46.0); HEMO FLAGS DIFF FINAL; LYMPHOCYTE # 1.6 TH/MM3 (1.0-4.8); MEAN CELL VOLUME 97.3 FL (80.0-100.0); MEAN CORPUSCULAR HEMOGLOBIN 32.5 PG (27.0-34.0); MEAN CORPUSCULAR HGB CONC 33.4 % (32.0-36.0); MONO % 5.2 % (0.0-8.0); NEUT % 75.8 % (16.0-70.0); PLATELET COUNT 209 TH/MM3 (150-450); RED BLOOD COUNT 3.56 MIL/MM3 (4.00-5.30); RED CELL DISTRIBUTION WIDTH 17.3 % (11.6-17.2)
[2017-05-07 04:26] LABS: APTT (PATIENT) 69.5 SEC (24.3-30.1)
[2017-05-07 05:00] VITALS: BP 130/60; PULSE 65; RESP 20; TEMP 97.3; O2SAT 95
[2017-05-07] MEDS: CLOTRIMAZOLE 10 MG TROCHE BUCCAL SCH ×5 (06:16→21:38)
[2017-05-07] MEDS: HEPARIN-D5W INJ 250 ML IV SCH (06:17)
[2017-05-07 08:00] VITALS: BP 153/65; PULSE 64; PULSE 82; RESP 18; TEMP 98; O2SAT 96
[2017-05-07] MEDS: ENALAPRIL MALEATE 2.5 MG TAB PO SCH ×2 (10:22→21:38)
[2017-05-07] MEDS: PREGABALIN 25 MG CAP PO SCH ×2 (10:22→21:38)
[2017-05-07] MEDS: TOPIRAMATE 25 MG TAB PO SCH ×2 (10:22→21:38)
[2017-05-07] MEDS: DOCUSATE SODIUM 50 MG/SENNA 8.6 MG TAB PO SCH ×2 (10:22→21:00)
[2017-05-07 11:15] LABS: APTT (PATIENT) 57.8 SEC (24.3-30.1)
[2017-05-07 12:00] VITALS: BP 150/66; PULSE 65; RESP 18; TEMP 98.1; O2SAT 96
--- NOTE | 2017-05-07 12:41 | HHI.PR ---
Subjective Remarks This is a pleasant 86 y/o Female who was brought from Rehab, has Anemia, Atrial Fibrillation, CAD, COPD, Hypertension Hypothyroidism, Anxiety disorder, recently hospitalized due to Pneumonia, Pulmonary Emboli on Xarelto and Aspirin came to ER with Epistaxis and Atypical Chest pain, as per drug safety data management specialist to continue Unfractionated Heparin Patient seen in her bedroom eating, no complaint, has left nasal window with Packing in place. not yet seen by ENT specialist, continue Heparin. No nausea, vomit or diarrhea. Objective Vital Signs Date Time Temp Pulse Resp B/P Pulse Ox O2 Delivery O2 Flow Rate FiO2 05/07/17 08:00 98.0 64 18 153/65 96 05/07/17 05:00 97.3 65 20 130/60 95 05/07/17 00:00 Room Air 05/07/17 00:00 98.0 71 20 150/68 94 05/06/17 20:00 97.9 83 20 127/61 96 05/06/17 20:00 Room Air 05/06/17 20:00 81 05/06/17 16:00 97.8 77 20 170/80 97 I/O 05/06/17 05/06/17 05/06/17 05/07/17 05/07/17 05/07/17 07:00 15:00 23:00 07:00 15:00 23:00 Intake Total 2140 ml 720 ml 1787 ml 1133 ml Output Total 150 ml 400 ml Balance 2140 ml 570 ml 1387 ml 1133 ml Intake Oral 240 ml 720 ml 400 ml IV Total 1900 ml 1787 ml 733 ml Output Urine Total 150 ml 400 ml # Voids 5 4 0 # Bowel Movements 2 0 Result Diagram: 05/07/17 0340 05/06/17 0602 Imaging Last Impressions Lower Extremity Ultrasound 05/06/17 0000 Signed Impressions: Service Date/Time: Saturday, May 06, 2017 20:53 - CONCLUSION: 1. DVT is present bilaterally as described above. Delta Montero MD Chest X-Ray 05/05/17 1051 Signed Impressions: Service Date/Time: Friday, May 05, 2017 11:10 - CONCLUSION: Normal examination. Mild diffuse interstitial prominence particularly lung bases improved since January Iker Jesus MD Procedures Left anterior nasal Packing Other Results Laboratory Tests Test 705/05/17 05/05/17 05/06/17 10:30 11:30 22:38 06:02 Red Cell Morphology Comment NORMAL Total Bilirubin 0.4 MG/DL Aspartate Amino Transf 39 U/L (AST/SGOT) Alanine Aminotransferase 29 U/L (ALT/SGPT) Alkaline Phosphatase 65 U/L B-Type Natriuretic Peptide 84 PG/ML Total Protein 5.5 GM/DL Albumin 2.7 GM/DL Prothrombin Time 11.4 SEC Prothromb Time International 1.0 RATIO Ratio Urine Color YELLOW Urine Turbidity HAZY Urine pH 8.0 Urine Specific [place] 1.012 Urine Protein NEG mg/dL Urine Glucose (UA) NEG mg/dL Urine Ketones NEG mg/dL Urine Occult Blood NEG Urine Nitrite NEG Urine Bilirubin NEG Urine Urobilinogen LESS THAN 2.0 MG/DL Urine Leukocyte Esterase NEG Urine RBC LESS THAN 1 /hpf Urine WBC 1 /hpf Urine Squamous Epithelial 1 /hpf Cells Urine Amorphous Sediment MOD Urine Bacteria OCC /hpf Urine Hyaline Casts 1 /lpf Microscopic Urinalysis Comment CULT NOT INDICATED Total Creatine Kinase 25 U/L Troponin I 0.04 NG/ML Platelet Estimate NORMAL Platelet Morphology Comment NORMAL Ovalocytes 1+ Sodium Level 135 MEQ/L Potassium Level 4.0 MEQ/L Chloride Level 103 MEQ/L Carbon Dioxide Level 26.7 MEQ/L Anion Gap 5 MEQ/L Blood Urea Nitrogen 18 MG/DL Creatinine 0.62 MG/DL Estimat Glomerular Filtration 92 ML/MIN Rate Random Glucose 76 MG/DL Calcium Level 7.8 MG/DL Test 05/07/17 05/07/17 03:40 10:38 White Blood Count 10.0 TH/MM3 Red Blood Count 3.56 MIL/MM3 Hemoglobin 11.6 GM/DL Hematocrit 34.7 % Mean Corpuscular Volume 97.3 FL Mean Corpuscular Hemoglobin 32.5 PG Mean Corpuscular Hemoglobin 33.4 % Concent Red Cell Distribution Width 17.3 % Platelet Count 209 TH/MM3 Mean Platelet Volume 7.5 FL Neutrophils (%) (Auto) 75.8 % Lymphocytes (%) (Auto) 16.0 % Monocytes (%) (Auto) 5.2 % Eosinophils (%) (Auto) 2.2 % Basophils (%) (Auto) 0.8 % Neutrophils # (Auto) 7.6 TH/MM3 Lymphocytes # (Auto) 1.6 TH/MM3 Monocytes # (Auto) 0.5 TH/MM3 Eosinophils # (Auto) 0.2 TH/MM3 Basophils # (Auto) 0.1 TH/MM3 CBC Comment DIFF FINAL Differential Comment Activated Partial 57.8 SEC Thromboplast Time Objective Remarks GENERAL: Well-nourished, well-developed pleasant elderly female patient in [facility]. SKIN: Warm and dry. No rash. HEAD: Normocephalic. Atraumatic. EYES: Pupils equal and round. No scleral icterus. No injection or drainage. ENT: Left nare with packing in place, no active bleeding around nare or in posterior oropharynx. Mucous membranes pink and moist. Buccal mucosa with erythematous plaque, angles of mouth with erythema, consistent with angular cheilitis. NECK: Supple. Trachea midline. CARDIOVASCULAR: Regular rate and rhythm. S1, S2 noted. No murmur appreciated. RESPIRATORY: No accessory muscle use. Clear to auscultation. Breath sounds equal bilaterally. GASTROINTESTINAL: Abdomen soft, non-tender, nondistended. Normoactive bowel sounds x4. MUSCULOSKELETAL: No obvious deformities. Extremities without clubbing, cyanosis , or edema. NEUROLOGICAL: Awake and alert. No obvious cranial nerve deficits. Motor grossly within normal limits. Normal speech. PSYCHIATRIC: Appropriate mood and affect; insight and judgment normal. Medications and IVs Current Medications Medications (Trade) Dose Ordered Sig/Jeny Route Start Time Stop Time Status Last Admin (NS 1000 ml Inj) 1,000 ml @ 100 mls/hr Q10H IV 05/05/17 11:00 05/07/17 03:22 (NS Flush) 2 ml UNSCH PRN IV FLUSH 05/05/17 13:15 (NS Flush) 2 ml BID IV FLUSH 05/05/17 21:00 05/05/17 20:11 (Zofran Inj) 4 mg Q6H PRN IVP 05/05/17 13:15 (Tylenol) 650 mg Q6H PRN PO 05/05/17 13:15 (Narcan Inj) 0.4 mg UNSCH PRN IV 05/05/17 13:15 (April-Colace) 1 tab BID PO 05/05/17 21:00 05/07/17 10:22 (Milk Of Magnesia Liq) 30 ml Q12H PRN PO 05/05/17 13:15 (Senokot) 17.2 mg Q12H PRN PO 05/05/17 13:15 (Dulcolax Supp) 10 mg DAILY PRN RECTAL 05/05/17 13:15 (Lactulose Liq) 30 ml DAILY PRN PO 05/05/17 13:15 (Catapres) 0.1 mg Q6H PRN PO 05/05/17 13:15 05/06/17 16:49 (Vasotec Inj) 1.25 mg Q6H PRN IV PUSH 05/05/17 13:15 (Nitrostat Sl) 0.4 mg Q5M PRN SL 05/05/17 14:45 (Heparin Inj) 2,500 units UNSCH PRN IV 05/06/17 07:00 Heparin Sodium (Porcine) 2500 units 2,500 units UNSCH PRN IV 05/06/17 07:00 (Heparin-D5W Inj) 250 ml @ 0 mls/hr TITRATE IV 05/06/17 07:00 05/07/17 06:17 ([place] 5-325 Mg) 1 tab Q4H PRN PO 05/06/17 11:15 05/07/17 10:24 (Morphine Inj) 2 mg Q6HR PRN IV PUSH 05/06/17 13:00 05/06/17 16:56 (Sensi-Care Protective Barrier Oint) 1 applic DAILY TOPICAL 05/06/17 13:00 05/06/17 16:49 (Topamax) 25 mg Q12HR PO 05/06/17 13:15 05/07/17 10:22 (Vasotec) 2.5 mg BID PO 05/06/17 13:15 05/07/17 10:22 (Singulair) 10 mg HS PO 05/06/17 21:00 05/06/17 21:00 (Lyrica) 25 mg BID PO 05/06/17 21:00 05/07/17 10:22 (Restoril) 15 mg HS PRN PO 05/06/17 13:15 A/P Assessment and Plan 86-year-old female from [facility] with history of anemia, atrial fibrillation, CAD, asthma/COPD, HTN, hypothyroidism, anxiety, recent hospitalization for pneumonia and pulmonary embolism on Xarelto, presents with chest pains and epistaxis. Subacute Pulmonary Embolism: diagnosed last week while hospitalized at [facility]. She developed epistaxis while on Xarelto. Patient still with ongoing chest pains at times. Hematology consult appreciated. -holding patient's Xarelto for now. Heparin gtt started by hematology. -oxygen and nebs as needed. Incentive spirometry. Acute Posterior Epistaxis: s/p left nasal packing in the ED. -given Kcentra injection in the ED to reverse coagulopathy -holding patient's Xarelto. On heparin gtt per hematology. -monitor H&H, currently stable. -continue nasal packing -ENT consult pending. Chest Pain: suspect secondary to pulmonary embolism, however symptoms relieved by Nitro/Morphine. Initial troponin 0.04, and EKG without acute ST elevation/ depression but does have q waves in inferior leads, consistent with previous EKG in 2013. -Cardiac enzymes stable. -pain control as needed. -Monitor on telemetry Angular Cheilitis with Oropharyngeal Candidiasis: patient with evidence of thrush on buccal mucosa with angular cheilitis -start on clotrimazole troches 5x/day [id number] All other medical conditions stable, continue home medications once med list updated. DVT Prophylaxis: Heparin gtt Discussed with patient in the room Discharge Planning Awaiting recommendations by ENT specialist. Jonah Jamison MD May 07, 2017 12:41 Jonah Jamison MD May 07, 2017 12:41
[2017-05-07] MEDS: SODIUM CHLORIDE 0.9% FLUSH 10 ML FLUSH IV FLUSH SCH ×2 (14:47→21:00)
[2017-05-07 16:00] VITALS: BP 138/64; PULSE 68; RESP 18; TEMP 98; O2SAT 96
--- NOTE | 2017-05-07 19:09 | PD.ONC.PN ---
Subjective Subjective Remarks "I hate it" referring to Coumadin, seeing her sister need to take blood testing. Explained rationale, to choose anticoagulant that could be reversed, pt agree. Objective Data Date Time Temp Pulse Resp B/P Pulse Ox O2 Delivery O2 Flow Rate FiO2 05/07/17 17:43 21 05/07/17 16:00 98.0 68 18 138/64 96 05/07/17 12:00 98.1 65 18 150/66 96 05/07/17 08:00 98.0 64 18 153/65 96 05/07/17 05:00 97.3 65 20 130/60 95 05/07/17 00:00 Room Air 05/07/17 00:00 98.0 71 20 150/68 94 05/06/17 20:00 97.9 83 20 127/61 96 05/06/17 20:00 Room Air 05/06/17 20:00 81 05/07/17 05/07/17 05/07/17 06:59 14:59 22:59 Intake Total 1133 ml 380 ml Balance 1133 ml 380 ml Result Diagram: 05/07/17 0340 05/06/17 0602 Laboratory Results Laboratory Tests Test 05/06/17 05/07/17 05/07/17 20:36 03:40 10:38 Activated Partial 87.2 SEC 69.5 SEC 57.8 SEC Thromboplast Time White Blood Count 10.0 TH/MM3 Red Blood Count 3.56 MIL/MM3 Hemoglobin 11.6 GM/DL Hematocrit 34.7 % Mean Corpuscular Volume 97.3 FL Mean Corpuscular Hemoglobin 32.5 PG Mean Corpuscular Hemoglobin 33.4 % Concent Red Cell Distribution Width 17.3 % Platelet Count 209 TH/MM3 Mean Platelet Volume 7.5 FL Neutrophils (%) (Auto) 75.8 % Lymphocytes (%) (Auto) 16.0 % Monocytes (%) (Auto) 5.2 % Eosinophils (%) (Auto) 2.2 % Basophils (%) (Auto) 0.8 % Neutrophils # (Auto) 7.6 TH/MM3 Lymphocytes # (Auto) 1.6 TH/MM3 Monocytes # (Auto) 0.5 TH/MM3 Eosinophils # (Auto) 0.2 TH/MM3 Basophils # (Auto) 0.1 TH/MM3 CBC Comment DIFF FINAL Differential Comment Administered Medications Medications (Trade) Dose Ordered Sig/Jeny Route PRN Reason Start Time Stop Time Status Last Admin Dose Admin Sodium Chloride (NS 1000 ml Inj) 1,000 ml @ 100 mls/hr Q10H IV 05/05/17 11:00 05/07/17 03:22 Sodium Chloride (NS Flush) 2 ml BID IV FLUSH 05/05/17 21:00 05/07/17 14:47 Senna/Docusate Sodium (April-Colace) 1 tab BID PO 05/05/17 21:00 05/07/17 10:22 Clonidine 0.1 mg 0.1 mg Q6H PRN PO SBP> OR = 180, DBP> OR = 100 05/05/17 13:15 05/06/17 16:49 Heparin Sodium/ Dextrose (Heparin-D5W Inj) 250 ml @ 0 mls/hr TITRATE IV 05/06/17 07:00 05/07/17 06:17 Acetaminophen/ Hydrocodone Bitart ([place] 5-325 Mg) 1 tab Q4H PRN PO PAIN SCALE 3 TO 10 05/06/17 11:15 05/07/17 18:37 Morphine Sulfate (Morphine Inj) 2 mg Q6HR PRN IV PUSH chest pain 05/06/17 13:00 05/06/17 16:56 Petrolatum/Zinc Oxide (Sensi-Care Protective Barrier Oint) 1 applic DAILY TOPICAL 05/06/17 13:00 05/06/17 16:49 Topiramate (Topamax) 25 mg Q12HR PO 05/06/17 13:15 05/07/17 10:22 Enalapril Maleate (Vasotec) 2.5 mg BID PO 05/06/17 13:15 05/07/17 10:22 Montelukast Sodium (Singulair) 10 mg HS PO 05/06/17 21:00 05/06/17 21:00 Pregabalin (Lyrica) 25 mg BID PO 05/06/17 21:00 05/07/17 10:22 Objective Remarks GENERAL: Pleasant elderly female upright in bed SKIN: Warm and dry. HEAD: Normocephalic. packing in left nare still present, no active bleeding Some ooze around the packing. R angle lip scab healing. EYES: No injection or drainage. NECK: Supple, trachea midline. CARDIOVASCULAR: Regular rate and rhythm RESPIRATORY: Breath sounds equal bilaterally. No accessory muscle use. GASTROINTESTINAL: Abdomen soft, non-tender, nondistended. EXTREMITIES: No cyanosis BL senile purpuric lesions. NEUROLOGICAL: No obvious focal deficit. Awake, alert, and oriented x3. Assessment/Plan Problem List: (1) Pulmonary embolism Status: Acute Plan: 05/07/17. Med recs still pending however, BL LE DVt confirmed. R heel vein, L distal femoral, popliteal and femoral veins- occlusive clot. Pt has DVT associated with PE, needs anticoagulant therapy. Given recurrent epistaxis, explained to pt that need to start anticoagulant therapy that we can reverse immediately. NOAC have no reversal agent. ENT evaluation still pending to assist in preventing recurrent epistaxis. Discussed risk and benefits of Coumadin, pt agree. Discussed also that she could be convert to NOAC once risk of bleeding corrected. --on heparin gtt --was on xarelto previously, but developed epistaxis. (2) Epistaxis Status: Acute Plan: 05/07/17. Packing still in place. Pending ENT recommendations. --hgb stable --ENT consulted --packing in place Assessment 86y/o female with epistaxis associated with Xarelto with recent pulmonary embolism. h/o Recent pulmonary embolism. Pneumonia. Atrial fibrillation. Coronary artery disease. Asthma/COPD. Hypertension. Hypothyroidism. History of seizure.Anxiety. Previous pelvic fracture. Right hip ORIF with hardware Plan 1. monitor CBC 2. Cont heparin gtt, monitor closely for bleeding. 3. requested records from [facility] 4. Start bridge to therapeutic INR, Start Coumadin. Shawnee Medina MD May 07, 2017 19:09
[2017-05-07 20:00] VITALS: BP 140/66; PULSE 66; PULSE 69; RESP 18; TEMP 98.1; O2SAT 96
[2017-05-07] MEDS: MONTELUKAST SODIUM 10 MG TAB PO SCH (21:00)
[2017-05-07] MEDS: WARFARIN SOD 2.5 MG TAB PO SCH (21:38)
[2017-05-08] VITALS: BP 186/79; PULSE 83; RESP 20; TEMP 98.6; O2SAT 95
[2017-05-08 04:00] VITALS: BP 168/80; PULSE 78; RESP 20; TEMP 97.5; O2SAT 96
[2017-05-08] MEDS: CLOTRIMAZOLE 10 MG TROCHE BUCCAL SCH ×5 (05:41→20:25)
[2017-05-08] MEDS: ACETAMINOPHEN/HYDROcodone 325 MG/5 MG TAB PO PRN ×4 (05:42→19:30)
[2017-05-08 06:47] LABS: AUTOMATED NEUTROPHIL # 6.2 TH/MM3 (1.8-7.7); BASOPHIL % 0.3 % (0.0-2.0); EOSINOPHIL # 0.2 TH/MM3 (0-0.4); EOSINOPHIL % 2.1 % (0.0-4.0); HEMATOCRIT 38.3 % (35.0-46.0); HEMO FLAGS DIFF FINAL; LYMPH % 15.2 % (9.0-44.0); LYMPHOCYTE # 1.2 TH/MM3 (1.0-4.8); MEAN CELL VOLUME 99.4 FL (80.0-100.0); MEAN CORPUSCULAR HEMOGLOBIN 32.4 PG (27.0-34.0); MEAN CORPUSCULAR HGB CONC 32.6 % (32.0-36.0); MONO % 4.2 % (0.0-8.0); NEUT % 78.2 % (16.0-70.0); PLATELET COUNT 186 TH/MM3 (150-450); RED BLOOD COUNT 3.85 MIL/MM3 (4.00-5.30); RED CELL DISTRIBUTION WIDTH 17.4 % (11.6-17.2); WHITE BLOOD COUNT 7.9 TH/MM3 (4.0-11.0)
[2017-05-08 06:55] LABS: APTT (PATIENT) 54.9 SEC (24.3-30.1)
[2017-05-08 07:03] LABS: APTT (PATIENT) 56.6 SEC (24.3-30.1)
[2017-05-08 08:00] VITALS: BP 161/70; PULSE 69; PULSE 72; RESP 20; TEMP 97.9; O2SAT 98
[2017-05-08] MEDS: ENALAPRIL MALEATE 2.5 MG TAB PO SCH ×2 (09:06→20:22)
[2017-05-08] MEDS: PREGABALIN 25 MG CAP PO SCH ×2 (09:06→20:22)
[2017-05-08] MEDS: DOCUSATE SODIUM 50 MG/SENNA 8.6 MG TAB PO SCH ×2 (09:06→20:22)
[2017-05-08] MEDS: TOPIRAMATE 25 MG TAB PO SCH ×2 (09:06→20:22)
[2017-05-08] MEDS: SODIUM CHLORIDE 0.9% FLUSH 10 ML FLUSH IV FLUSH SCH ×2 (09:07→20:22)
[2017-05-08 12:00] VITALS: BP 179/79; PULSE 76; RESP 20; TEMP 98; O2SAT 96
[2017-05-08] MEDS: HEPARIN-D5W INJ 250 ML IV SCH (12:35)
--- NOTE | 2017-05-08 13:52 | PD.ONC.PN ---
Subjective Subjective Remarks "I don't know what to do" regarding crust over L nostril Happy to have packing removed. Objective Data Date Time Temp Pulse Resp B/P Pulse Ox O2 Delivery O2 Flow Rate FiO2 05/08/17 12:00 98.0 76 20 179/79 96 05/08/17 08:00 97.9 69 20 161/70 98 05/08/17 04:00 97.5 78 20 168/80 96 05/08/17 00:00 98.6 83 20 186/79 95 05/07/17 20:00 Room Air 05/07/17 20:00 69 05/07/17 20:00 98.1 66 18 140/66 96 05/07/17 17:43 21 05/07/17 16:00 98.0 68 18 138/64 96 05/08/17 05/08/17 05/08/17 07:00 15:00 23:00 Intake Total 990 ml Output Total 500 ml Balance 490 ml Result Diagram: 05/08/17 0558 05/06/17 0602 Laboratory Results Laboratory Tests Test 05/08/17 05:58 White Blood Count 7.9 TH/MM3 Red Blood Count 3.85 MIL/MM3 Hemoglobin 12.5 GM/DL Hematocrit 38.3 % Mean Corpuscular Volume 99.4 FL Mean Corpuscular Hemoglobin 32.4 PG Mean Corpuscular Hemoglobin 32.6 % Concent Red Cell Distribution Width 17.4 % Platelet Count 186 TH/MM3 Mean Platelet Volume 7.4 FL Neutrophils (%) (Auto) 78.2 % Lymphocytes (%) (Auto) 15.2 % Monocytes (%) (Auto) 4.2 % Eosinophils (%) (Auto) 2.1 % Basophils (%) (Auto) 0.3 % Neutrophils # (Auto) 6.2 TH/MM3 Lymphocytes # (Auto) 1.2 TH/MM3 Monocytes # (Auto) 0.3 TH/MM3 Eosinophils # (Auto) 0.2 TH/MM3 Basophils # (Auto) 0.0 TH/MM3 CBC Comment DIFF FINAL Differential Comment Prothrombin Time 11.0 SEC Prothromb Time International 1.0 RATIO Ratio Activated Partial 54.9 SEC Thromboplast Time Administered Medications Medications (Trade) Dose Ordered Sig/Jeny Route PRN Reason Start Time Stop Time Status Last Admin Dose Admin Sodium Chloride (NS 1000 ml Inj) 1,000 ml @ 100 mls/hr Q10H IV 05/05/17 11:00 05/07/17 23:38 Sodium Chloride (NS Flush) 2 ml BID IV FLUSH 05/05/17 21:00 05/08/17 09:07 Senna/Docusate Sodium (April-Colace) 1 tab BID PO 05/05/17 21:00 05/08/17 09:06 Clonidine 0.1 mg 0.1 mg Q6H PRN PO SBP> OR = 180, DBP> OR = 100 05/05/17 13:15 05/06/17 16:49 Heparin Sodium/ Dextrose (Heparin-D5W Inj) 250 ml @ 0 mls/hr TITRATE IV 05/06/17 07:00 05/08/17 12:35 Acetaminophen/ Hydrocodone Bitart ([place] 5-325 Mg) 1 tab Q4H PRN PO PAIN SCALE 3 TO 10 05/06/17 11:15 05/08/17 13:45 Morphine Sulfate (Morphine Inj) 2 mg Q6HR PRN IV PUSH chest pain 05/06/17 13:00 05/06/17 16:56 Petrolatum/Zinc Oxide (Sensi-Care Protective Barrier Oint) 1 applic DAILY TOPICAL 05/06/17 13:00 05/06/17 16:49 Topiramate (Topamax) 25 mg Q12HR PO 05/06/17 13:15 05/08/17 09:06 Enalapril Maleate (Vasotec) 2.5 mg BID PO 05/06/17 13:15 05/08/17 09:06 Montelukast Sodium (Singulair) 10 mg HS PO 05/06/17 21:00 05/07/17 21:00 Pregabalin (Lyrica) 25 mg BID PO 05/06/17 21:00 05/08/17 09:06 Warfarin Sodium (Coumadin) 2.5 mg DAILY@16 PO 05/07/17 19:30 05/07/17 21:38 Objective Remarks GENERAL: Pleasant elderly female SKIN: Warm and dry. HEAD: Normocephalic. L nare with dry clot, serosangenous drainage, no active bleeding Some ooze around the packing. R angle lip scab healing. EYES: No injection or drainage. NECK: Supple, trachea midline. CARDIOVASCULAR: Regular rate and rhythm RESPIRATORY: Breath sounds equal bilaterally. No accessory muscle use. GASTROINTESTINAL: Abdomen soft, non-tender, nondistended. EXTREMITIES: No cyanosis BL senile purpuric lesions. Dressing over L carlson. NEUROLOGICAL: No obvious focal deficit. Awake, alert, and oriented x3. Assessment/Plan Problem List: (1) Pulmonary embolism Status: Acute Plan: 05/08/17. Continue UFH bridge to therapeutic INR. Monitor for rebleeding after packing removed. If stable anticipate switch to LMWH tomorrow. Coumadin continue. Continue goal therapeutic anticoagulant therapy- for BL LE DVT and pulmonary embolism 05/07/17. Med recs still pending however, BL LE DVt confirmed. R heel vein, L distal femoral, popliteal and femoral veins- occlusive clot. Pt has DVT associated with PE, needs anticoagulant therapy. Given recurrent epistaxis, explained to pt that need to start anticoagulant therapy that we can reverse immediately. NOAC have no reversal agent. ENT evaluation still pending to assist in preventing recurrent epistaxis. Discussed risk and benefits of Coumadin, pt agree. Discussed also that she could be convert to NOAC once risk of bleeding corrected. --on heparin gtt --was on xarelto previously, but developed epistaxis. (2) Epistaxis Status: Acute Plan: 05/08/17. Monitor for bleeding. If bleeding need to hold UFH. If bleeding trial afrin and pressing nose to stop bleeding. Saline for dry crust around outside of nose, advised no picking. 05/07/17. Packing still in place. Pending ENT recommendations. --hgb stable --ENT consulted --packing in place Assessment 86y/o female with epistaxis associated with Xarelto with recent pulmonary embolism. h/o Recent pulmonary embolism. Pneumonia. Atrial fibrillation. Coronary artery disease. Asthma/COPD. Hypertension. Hypothyroidism. History of seizure.Anxiety. Previous pelvic fracture. Right hip ORIF with hardware Plan 1. monitor CBC 2. Cont heparin gtt, anticipate DC heparin if nose bleeds restart 3. Monitor for bleeding 4. Afrin and nasal spray Shawnee Medina MD May 08, 2017 13:52
[2017-05-08] MEDS ORDERED: SODIUM CHLORIDE 0.65% NASAL SPRAY 45 ML BTL EACH NARE PRN (14:00)
[2017-05-08] MEDS ORDERED: OXYMETAZOLINE HCL 0.05% 15 ML NASAL SPRAY NASAL PRN (14:00)
--- NOTE | 2017-05-08 15:50 | HHI.PR ---
Subjective Remarks This is a pleasant 86 y/o Female who was brought from Rehab, has Anemia, Atrial Fibrillation, CAD, COPD, Hypertension Hypothyroidism, Anxiety disorder, recently hospitalized due to Pneumonia, Pulmonary Emboli on Xarelto and Aspirin came to ER with Epistaxis and Atypical Chest pain, as per business operations specialist to continue Unfractionated Heparin Patient seen in her bedroom eating, no complaint, has left nasal window with Packing in place. not yet seen by ENT specialist. 05/08: Seen in her bedroom, and discussed with patient and her nurse Miss Ding, also present her Daughter in law no nausea, vomit or diarrhea. ENT removed the anterior nasal packing. Objective Vital Signs Date Time Temp Pulse Resp B/P Pulse Ox O2 Delivery O2 Flow Rate FiO2 05/08/17 12:00 98.0 76 20 179/79 96 05/08/17 08:00 97.9 69 20 161/70 98 05/08/17 08:00 72 05/08/17 08:00 96 Room Air 21 05/08/17 04:00 97.5 78 20 168/80 96 05/08/17 00:00 98.6 83 20 186/79 95 05/07/17 20:00 Room Air 05/07/17 20:00 69 05/07/17 20:00 98.1 66 18 140/66 96 05/07/17 17:43 21 05/07/17 16:00 98.0 68 18 138/64 96 I/O 05/07/17 05/07/17 05/07/17 05/08/17 05/08/17 05/08/17 07:00 15:00 23:00 07:00 15:00 23:00 Intake Total 1133 ml 380 ml 1792 ml 990 ml Output Total 500 ml Balance 1133 ml 380 ml 1792 ml 490 ml Intake Oral 400 ml 380 ml 240 ml 220 ml IV Total 733 ml 1552 ml 770 ml Output Urine Total 500 ml # Voids 0 5 4 # Bowel Movements 0 0 0 1 Result Diagram: 05/08/17 0558 05/06/17 0602 Imaging Last Impressions Lower Extremity Ultrasound 05/06/17 0000 Signed Impressions: Service Date/Time: Saturday, May 06, 2017 20:53 - CONCLUSION: 1. DVT is present bilaterally as described above. Delta Montero MD Chest X-Ray 05/05/17 1051 Signed Impressions: Service Date/Time: Friday, May 05, 2017 11:10 - CONCLUSION: Normal examination. Mild diffuse interstitial prominence particularly lung bases improved since January Iker Jesus MD Procedures Left anterior nasal Packing Other Results Laboratory Tests Test 05/05/17 05/05/17 05/05/17 05/06/17 10:30 11:30 22:38 06:02 Red Cell Morphology Comment NORMAL Total Bilirubin 0.4 MG/DL Aspartate Amino Transf 39 U/L (AST/SGOT) Alanine Aminotransferase 29 U/L (ALT/SGPT) Alkaline Phosphatase 65 U/L B-Type Natriuretic Peptide 84 PG/ML Total Protein 5.5 GM/DL Albumin 2.7 GM/DL Urine Color YELLOW Urine Turbidity HAZY Urine pH 8.0 Urine Specific [place] 1.012 Urine Protein NEG mg/dL Urine Glucose (UA) NEG mg/dL Urine Ketones NEG mg/dL Urine Occult Blood NEG Urine Nitrite NEG Urine Bilirubin NEG Urine Urobilinogen LESS THAN 2.0 MG/DL Urine Leukocyte Esterase NEG Urine RBC LESS THAN 1 /hpf Urine WBC 1 /hpf Urine Squamous Epithelial 1 /hpf Cells Urine Amorphous Sediment MOD Urine Bacteria OCC /hpf Urine Hyaline Casts 1 /lpf Microscopic Urinalysis Comment CULT NOT INDICATED Total Creatine Kinase 25 U/L Troponin I 0.04 NG/ML Platelet Estimate NORMAL Platelet Morphology Comment NORMAL Ovalocytes 1+ Sodium Level 135 MEQ/L Potassium Level 4.0 MEQ/L Chloride Level 103 MEQ/L Carbon Dioxide Level 26.7 MEQ/L Anion Gap 5 MEQ/L Blood Urea Nitrogen 18 MG/DL Creatinine 0.62 MG/DL Estimat Glomerular Filtration 92 ML/MIN Rate Random Glucose 76 MG/DL Calcium Level 7.8 MG/DL Test 05/08/17 05:58 White Blood Count 7.9 TH/MM3 Red Blood Count 3.85 MIL/MM3 Hemoglobin 12.5 GM/DL Hematocrit 38.3 % Mean Corpuscular Volume 99.4 FL Mean Corpuscular Hemoglobin 32.4 PG Mean Corpuscular Hemoglobin 32.6 % Concent Red Cell Distribution Width 17.4 % Platelet Count 186 TH/MM3 Mean Platelet Volume 7.4 FL Neutrophils (%) (Auto) 78.2 % Lymphocytes (%) (Auto) 15.2 % Monocytes (%) (Auto) 4.2 % Eosinophils (%) (Auto) 2.1 % Basophils (%) (Auto) 0.3 % Neutrophils # (Auto) 6.2 TH/MM3 Lymphocytes # (Auto) 1.2 TH/MM3 Monocytes # (Auto) 0.3 TH/MM3 Eosinophils # (Auto) 0.2 TH/MM3 Basophils # (Auto) 0.0 TH/MM3 CBC Comment DIFF FINAL Differential Comment Prothrombin Time 11.0 SEC Prothromb Time International 1.0 RATIO Ratio Activated Partial 54.9 SEC Thromboplast Time Objective Remarks GENERAL: Well-nourished, well-developed pleasant elderly female patient in NAD. SKIN: Warm and dry. No rash. HEAD: Normocephalic. Atraumatic. EYES: Pupils equal and round. No scleral icterus. No injection or drainage. ENT: Left nare with some crusted blood. NECK: Supple. Trachea midline. CARDIOVASCULAR: Regular rate and rhythm. S1, S2 noted. No murmur appreciated. RESPIRATORY: No accessory muscle use. Clear to auscultation. Breath sounds equal bilaterally. GASTROINTESTINAL: Abdomen soft, non-tender, nondistended. Normoactive bowel sounds x4. MUSCULOSKELETAL: No obvious deformities. Extremities without clubbing, cyanosis , or edema. NEUROLOGICAL: Awake and alert. No obvious cranial nerve deficits. Motor grossly within normal limits. Normal speech. PSYCHIATRIC: Appropriate mood and affect; insight and judgment normal. Medications and IVs Current Medications Medications (Trade) Dose Ordered Sig/Jeny Route Start Time Stop Time Status Last Admin (NS 1000 ml Inj) 1,000 ml @ 100 mls/hr Q10H IV 05/05/17 11:00 05/07/17 23:38 (NS Flush) 2 ml UNSCH PRN IV FLUSH 05/05/17 13:15 (NS Flush) 2 ml BID IV FLUSH 05/05/17 21:00 05/08/17 09:07 (Zofran Inj) 4 mg Q6H PRN IVP 05/05/17 13:15 (Tylenol) 650 mg Q6H PRN PO 05/05/17 13:15 (Narcan Inj) 0.4 mg UNSCH PRN IV 05/05/17 13:15 (April-Colace) 1 tab BID PO 05/05/17 21:00 05/08/17 09:06 (Milk Of Magnesia Liq) 30 ml Q12H PRN PO 05/05/17 13:15 (Senokot) 17.2 mg Q12H PRN PO 05/05/17 13:15 (Dulcolax Supp) 10 mg DAILY PRN RECTAL 05/05/17 13:15 (Lactulose Liq) 30 ml DAILY PRN PO 05/05/17 13:15 (Catapres) 0.1 mg Q6H PRN PO 05/05/17 13:15 05/06/17 16:49 (Vasotec Inj) 1.25 mg Q6H PRN IV PUSH 05/05/17 13:15 (Nitrostat Sl) 0.4 mg Q5M PRN SL 05/05/17 14:45 (Heparin Inj) 2,500 units UNSCH PRN IV 05/06/17 07:00 Heparin Sodium (Porcine) 2500 units 2,500 units UNSCH PRN IV 05/06/17 07:00 (Heparin-D5W Inj) 250 ml @ 0 mls/hr TITRATE IV 05/06/17 07:00 05/08/17 12:35 ([place] 5-325 Mg) 1 tab Q4H PRN PO 05/06/17 11:15 05/08/17 13:45 (Morphine Inj) 2 mg Q6HR PRN IV PUSH 05/06/17 13:00 05/06/17 16:56 (Sensi-Care Protective Barrier Oint) 1 applic DAILY TOPICAL 05/06/17 13:00 05/06/17 16:49 (Topamax) 25 mg Q12HR PO 05/06/17 13:15 05/08/17 09:06 (Vasotec) 2.5 mg BID PO 05/06/17 13:15 05/08/17 09:06 (Singulair) 10 mg HS PO 05/06/17 21:00 05/07/17 21:00 (Lyrica) 25 mg BID PO 05/06/17 21:00 05/08/17 09:06 Temazepam 15 mg 15 mg HS PRN PO 05/06/17 13:15 (Coumadin Consult Pharmacy) 0 ml @ 0 mls/hr UNSCH OTHER 05/07/17 19:30 (Coumadin) 2.5 mg DAILY@16 PO 05/07/17 19:30 05/07/17 21:38 ([place] [facility] [place]) 2 spray Q4H PRN EACH NARE 05/08/17 14:00 UNV (Afrin 0.05% [facility] [place]) 2 spray Q12H PRN NASAL 05/08/17 14:00 UNV A/P Assessment and Plan 86-year-old female from [facility] with history of anemia, atrial fibrillation, CAD, asthma/COPD, HTN, hypothyroidism, anxiety, recent hospitalization for pneumonia and pulmonary embolism on Xarelto, presents with chest pains and epistaxis. Subacute Pulmonary Embolism: diagnosed last week while hospitalized at [facility]. She developed epistaxis while on Xarelto. Patient still with ongoing chest pains at times. Hematology consult appreciated. -holding patient's Xarelto for now. Heparin gtt started by hematology. -oxygen and nebs as needed. Incentive spirometry. Acute Posterior Epistaxis: s/p left nasal packing in the ED. -given Kcentra injection in the ED to reverse coagulopathy -holding patient's Xarelto. On heparin gtt per hematology. -monitor H&H, currently stable. -Removed Nasal packing by ENT this morning. Chest Pain: suspect secondary to pulmonary embolism, however symptoms relieved by Nitro/Morphine. Initial troponin 0.04, and EKG without acute ST elevation/ depression but does have q waves in inferior leads, consistent with previous EKG in 2014. -Cardiac enzymes stable. -pain control as needed. -Monitor on telemetry Angular Cheilitis with Oropharyngeal Candidiasis: patient with evidence of thrush on buccal mucosa with angular cheilitis -start on clotrimazole troches 5x/day [id number] All other medical conditions stable, continue home medications once med list updated. DVT Prophylaxis: Heparin gtt and Warfarin Discussed with patient, Nurse Miss Ding and her Daughter in law, all questions answered to the best of my abilities. Discharge Planning Not yet cleared by business operations specialist. Jonah Jamison MD May 08, 2017 15:50 Jonah Jamison MD May 08, 2017 15:50
[2017-05-08 16:00] VITALS: BP 186/74; PULSE 72; RESP 20; TEMP 97.9; O2SAT 98
[2017-05-08] MEDS: WARFARIN SOD 2.5 MG TAB PO SCH (16:39)
[2017-05-08] MEDS: cloNIDine HCL 0.1 MG TAB PO PRN (16:39)
[2017-05-08 20:00] VITALS: BP 132/63; PULSE 62; RESP 18; TEMP 98; O2SAT 96
--- NOTE | 2017-05-08 20:04 | MB ---
cc: Myriam REY DATE OF CONSULTATION: 05/08/2017. REASON FOR CONSULTATION: HISTORY OF PRESENT ILLNESS: Ms. Blood is an 86-year-old white female who fell in January and broke her right hip. She had that surgically repaired, went to rehab but presented back in April to the [facility] with respiratory insufficiency and pulmonary embolism. She was anticoagulated and discharged back to rehab on Xarelto. She presented to the emergency room here yesterday though with a serious nosebleed. Apparently she had had some nose bleeds even prior to presentation and she had to have her left nostril packed. The packing was removed this morning as she has had no additional bleeding. The Xarelto was discontinued. She had Dopplers of her legs with fairly extensive deep venous thrombosis in the left leg and minimal thrombosis in the right leg. She was seen by Dr. Medina who recommended IV heparin therapy for careful control to see if the epistaxis is going to discontinue. Clearly with residual extensive clot in the left leg and recent pulmonary embolism, anticoagulation is indicated. She has tolerated it well so far and there has been no recurrent bleeding. ENT has been consulted to evaluate the possible source of bleeding. She has a history of asthma but is a nonsmoker, never smoked significantly and has no known emphysema. No prior history of malignancy. PAST MEDICAL HISTORY: 1. Hypothyroidism. 2. Hypertension. 3. Essential tremor. 4. Prior hysterectomy. 5. Skin cancers removed. 6. Bladder repair. 7. Cervical spine fusion. 8. Atrial fibrillation. 9. Coronary artery disease. 10. Cataract surgery. SOCIAL HISTORY: She normally had been independent, ambulatory and very functional. She had been in rehab recently with the fractured hip repair. When home, drinks an occasional glass of wine, but not to excess. Two daughters who live locally, one who is with her here in the room. MEDICATIONS: Medications reviewed in the EMR. ALLERGIES: 1. Butalbital. 2. Codeine. 3. Phenobarbital. 4. Phenazopyridine. FAMILY HISTORY: Sister with a stroke. Mother with a stroke. Apparently father had complications of coagulation. PHYSICAL EXAMINATION: GENERAL: She is awake, alert, comfortable at rest. Nasal packing is removed. VITAL SIGNS: temperature is 98, heart rate is 80, respirations are 16-20 and her saturation is 96% on room air. HEAD, EYES, EARS, NOSE, THROAT: Sclerae anicteric. Mucous membranes are moist. NECK: Neck veins are flat. No adenopathy in the neck, supraclavicular region. CHEST: Her chest is entirely clear. No basilar rales. No wheezes or congestion. HEART: Regular rhythm. No harsh murmur. No audible S3. EXTREMITIES: No peripheral edema some ecchymoses on the extremities. DISCUSSION: Mrs. Blood presents with a known history of pulmonary embolism related to deep venous thrombosis in her legs. She had been somewhat immobile after repair of fractured right hip, which is probably the predisposing cause. There is no respiratory compromise at the present time and the problem is that she has had significant epistaxis requiring packing of the left naris. ENT evaluation is pending, and I agree with Dr. Medina that a continuous intravenous infusion of heparin is the safest at the present time that can be turned off if the bleeding recurs. Hopefully they can identify a specific bleeding site and possibly even cauterize that and outpatient anticoagulation can be resumed. Clearly there is an important indication here because she has residual extensive thrombus in the left leg and has had recent pulmonary embolism. R. MD FILIPE Friedman/BESS /4:09 PM /7:54 PM
[2017-05-08] MEDS: MONTELUKAST SODIUM 10 MG TAB PO SCH (20:22)
[2017-05-08] MEDS: SODIUM CHLOR 0.9% 1000 ML INJ 1,000 ML IV SCH (20:28)
[2017-05-09] VITALS (10 sets, daily range): BP systolic 132–158; BP diastolic 66–77; PULSE 63–78; RESP 18–20; TEMP 97.4–97.9; O2SAT 95–99
[2017-05-09] MEDS: ACETAMINOPHEN/HYDROcodone 325 MG/5 MG TAB PO PRN ×4 (01:30→20:22)
[2017-05-09] MEDS: CLOTRIMAZOLE 10 MG TROCHE BUCCAL SCH ×5 (05:22→20:23)
[2017-05-09] MEDS: SODIUM CHLOR 0.9% 1000 ML INJ 1,000 ML IV SCH (05:22)
--- NOTE | 2017-05-09 08:58 | HHI.PR ---
Subjective Remarks This is a pleasant 86 y/o Female who was brought from Rehab, has Anemia, Atrial Fibrillation, CAD, COPD, Hypertension Hypothyroidism, Anxiety disorder, recently hospitalized due to Pneumonia, Pulmonary Emboli on Xarelto and Aspirin came to ER with Epistaxis and Atypical Chest pain, as per report specialist to continue Unfractionated Heparin Patient seen in her bedroom eating, no complaint, has left nasal window with Packing in place. not yet seen by ENT specialist. 05/08: Seen in her bedroom, and discussed with patient and her nurse Miss Ding, also present her Daughter in law no nausea, vomit or diarrhea. ENT removed the anterior nasal packing. 05/09: Seen in her bedroom stable no new issues, no nausea, vomit or diarrhea, not yet cleared for discharge by specialists Objective Vital Signs Date Time Temp Pulse Resp B/P Pulse Ox O2 Delivery O2 Flow Rate FiO2 05/09/17 04:00 97.9 63 18 157/70 95 05/09/17 04:00 Room Air 05/09/17 00:00 Room Air 05/09/17 00:00 97.8 63 18 155/70 95 05/08/17 20:00 96 Room Air 21 05/08/17 20:00 98.0 62 18 132/63 96 05/08/17 20:00 62 05/08/17 16:00 97.9 72 20 186/74 98 05/08/17 12:00 98.0 76 20 179/79 96 I/O 05/08/17 05/08/17 05/08/17 05/09/17 05/09/17 05/09/17 06:59 14:59 22:59 06:59 14:59 22:59 Intake Total 990 ml 480 ml 240 ml 2422 ml Output Total 500 ml 200 ml 500 ml 1000 ml Balance 490 ml 280 ml -260 ml 1422 ml Intake Oral 220 ml 480 ml 240 ml 240 ml IV Total 770 ml 182 ml Other 2000 ml Output Urine Total 500 ml 200 ml 500 ml 1000 ml # Voids 3 # Bowel Movements 1 0 0 0 Result Diagram: 05/08/17 0558 05/06/17 0602 Imaging Last Impressions Lower Extremity Ultrasound 05/06/17 0000 Signed Impressions: Service Date/Time: Saturday, May 06, 2017 20:53 - CONCLUSION: 1. DVT is present bilaterally as described above. Delta Montero MD Chest X-Ray 05/05/17 1051 Signed Impressions: Service Date/Time: Friday, May 05, 2017 11:10 - CONCLUSION: Normal examination. Mild diffuse interstitial prominence particularly lung bases improved since January Iker Jesus MD Procedures Left anterior nasal Packing Other Results Laboratory Tests Test 05/05/17 05/05/17 05/05/17 05/06/17 10:30 11:30 22:38 06:02 Red Cell Morphology Comment NORMAL Total Bilirubin 0.4 MG/DL Aspartate Amino Transf 39 U/L (AST/SGOT) Alanine Aminotransferase 29 U/L (ALT/SGPT) Alkaline Phosphatase 65 U/L B-Type Natriuretic Peptide 84 PG/ML Total Protein 5.5 GM/DL Albumin 2.7 GM/DL Urine Color YELLOW Urine Turbidity HAZY Urine pH 8.0 Urine Specific [place] 1.012 Urine Protein NEG mg/dL Urine Glucose (UA) NEG mg/dL Urine Ketones NEG mg/dL Urine Occult Blood NEG Urine Nitrite NEG Urine Bilirubin NEG Urine Urobilinogen LESS THAN 2.0 MG/DL Urine Leukocyte Esterase NEG Urine RBC LESS THAN 1 /hpf Urine WBC 1 /hpf Urine Squamous Epithelial 1 /hpf Cells Urine Amorphous Sediment MOD Urine Bacteria OCC /hpf Urine Hyaline Casts 1 /lpf Microscopic Urinalysis Comment CULT NOT INDICATED Total Creatine Kinase 25 U/L Troponin I 0.04 NG/ML Platelet Estimate NORMAL Platelet Morphology Comment NORMAL Ovalocytes 1+ Sodium Level 135 MEQ/L Potassium Level 4.0 MEQ/L Chloride Level 103 MEQ/L Carbon Dioxide Level 26.7 MEQ/L Anion Gap 5 MEQ/L Blood Urea Nitrogen 18 MG/DL Creatinine 0.62 MG/DL Estimat Glomerular Filtration 92 ML/MIN Rate Random Glucose 76 MG/DL Calcium Level 7.8 MG/DL Test 05/08/17 05:58 White Blood Count 7.9 TH/MM3 Red Blood Count 3.85 MIL/MM3 Hemoglobin 12.5 GM/DL Hematocrit 38.3 % Mean Corpuscular Volume 99.4 FL Mean Corpuscular Hemoglobin 32.4 PG Mean Corpuscular Hemoglobin 32.6 % Concent Red Cell Distribution Width 17.4 % Platelet Count 186 TH/MM3 Mean Platelet Volume 7.4 FL Neutrophils (%) (Auto) 78.2 % Lymphocytes (%) (Auto) 15.2 % Monocytes (%) (Auto) 4.2 % Eosinophils (%) (Auto) 2.1 % Basophils (%) (Auto) 0.3 % Neutrophils # (Auto) 6.2 TH/MM3 Lymphocytes # (Auto) 1.2 TH/MM3 Monocytes # (Auto) 0.3 TH/MM3 Eosinophils # (Auto) 0.2 TH/MM3 Basophils # (Auto) 0.0 TH/MM3 CBC Comment DIFF FINAL Differential Comment Prothrombin Time 11.0 SEC Prothromb Time International 1.0 RATIO Ratio Activated Partial 54.9 SEC Thromboplast Time Objective Remarks GENERAL: Well-nourished, well-developed pleasant elderly female patient in [facility]. SKIN: Warm and dry. No rash. HEAD: Normocephalic. Atraumatic. EYES: Pupils equal and round. No scleral icterus. No injection or drainage. ENT: Left nare with some crusted blood. NECK: Supple. Trachea midline. CARDIOVASCULAR: Regular rate and rhythm. S1, S2 noted. No murmur appreciated. RESPIRATORY: No accessory muscle use. Clear to auscultation. Breath sounds equal bilaterally. GASTROINTESTINAL: Abdomen soft, non-tender, nondistended. Normoactive bowel sounds x4. MUSCULOSKELETAL: No obvious deformities. Extremities without clubbing, cyanosis , or edema. NEUROLOGICAL: Awake and alert. No obvious cranial nerve deficits. Motor grossly within normal limits. Normal speech. PSYCHIATRIC: Appropriate mood and affect; insight and judgment normal. Medications and IVs Current Medications Medications (Trade) Dose Ordered Sig/Jeny Route Start Time Stop Time Status Last Admin (NS 1000 ml Inj) 1,000 ml @ 100 mls/hr Q10H IV 05/05/17 11:00 05/09/17 05:22 (NS Flush) 2 ml UNSCH PRN IV FLUSH 05/05/17 13:15 (NS Flush) 2 ml BID IV FLUSH 05/05/17 21:00 05/08/17 09:07 (Zofran Inj) 4 mg Q6H PRN IVP 05/05/17 13:15 (Tylenol) 650 mg Q6H PRN PO 05/05/17 13:15 (Narcan Inj) 0.4 mg UNSCH PRN IV 05/05/17 13:15 (April-Colace) 1 tab BID PO 05/05/17 21:00 05/08/17 20:22 (Milk Of Magnesia Liq) 30 ml Q12H PRN PO 05/05/17 13:15 (Senokot) 17.2 mg Q12H PRN PO 05/05/17 13:15 (Dulcolax Supp) 10 mg DAILY PRN RECTAL 05/05/17 13:15 (Lactulose Liq) 30 ml DAILY PRN PO 05/05/17 13:15 (Catapres) 0.1 mg Q6H PRN PO 05/05/17 13:15 05/08/17 16:39 (Vasotec Inj) 1.25 mg Q6H PRN IV PUSH 05/05/17 13:15 (Nitrostat Sl) 0.4 mg Q5M PRN SL 05/05/17 14:45 (Heparin Inj) 2,500 units UNSCH PRN IV 05/06/17 07:00 Heparin Sodium (Porcine) 2500 units 2,500 units UNSCH PRN IV 05/06/17 07:00 (Heparin-D5W Inj) 250 ml @ 0 mls/hr TITRATE IV 05/06/17 07:00 05/08/17 12:35 ([place] 5-325 Mg) 1 tab Q4H PRN PO 05/06/17 11:15 05/09/17 01:30 (Morphine Inj) 2 mg Q6HR PRN IV PUSH 05/06/17 13:00 05/06/17 16:56 (Sensi-Care Protective Barrier Oint) 1 applic DAILY TOPICAL 05/06/17 13:00 05/06/17 16:49 (Topamax) 25 mg Q12HR PO 05/06/17 13:15 05/08/17 20:22 (Vasotec) 2.5 mg BID PO 05/06/17 13:15 05/08/17 20:22 (Singulair) 10 mg HS PO 05/06/17 21:00 05/08/17 20:22 (Lyrica) 25 mg BID PO 05/06/17 21:00 05/08/17 20:22 Temazepam 15 mg 15 mg HS PRN PO 05/06/17 13:15 (Coumadin Consult Pharmacy) 0 ml @ 0 mls/hr UNSCH OTHER 05/07/17 19:30 (Coumadin) 2.5 mg DAILY@16 PO 05/07/17 19:30 05/08/17 16:39 ([place] Siva [place]) 2 spray Q4H PRN EACH NARE 05/08/17 14:00 (Afrin 0.05% Siva [place]) 2 spray Q12H PRN NASAL 05/08/17 14:00 A/P Assessment and Plan 86-year-old female from [facility] with history of anemia, atrial fibrillation, CAD, asthma/COPD, HTN, hypothyroidism, anxiety, recent hospitalization for pneumonia and pulmonary embolism on Xarelto, presents with chest pains and epistaxis. Subacute Pulmonary Embolism: diagnosed last week while hospitalized at [facility]. She developed epistaxis while on Xarelto. Patient still with ongoing chest pains at times. Hematology consult appreciated. -holding patient's Xarelto for now. Held Heparin and start Lovenox and continue Warfarin not yet therapeutic INR. -oxygen and nebs as needed. Incentive spirometry. Acute Posterior Epistaxis: s/p left nasal packing in the ED. -given Kcentra injection in the ED to reverse coagulopathy -holding patient's Xarelto. on Lovenox and Warfarin. -monitor H&H, currently stable. -Removed Nasal packing by ENT this morning. Chest Pain: suspect secondary to pulmonary embolism, however symptoms relieved by Nitro/Morphine. Initial troponin 0.04, and EKG without acute ST elevation/ depression but does have q waves in inferior leads, consistent with previous EKG in 2013. -Cardiac enzymes stable. -pain control as needed. -Monitor on telemetry Angular Cheilitis with Oropharyngeal Candidiasis: patient with evidence of thrush on buccal mucosa with angular cheilitis -start on clotrimazole troches 5x/day [id number] All other medical conditions stable, continue home medications once med list updated. DVT Prophylaxis: Heparin gtt and Warfarin Discussed with patient and nurse, all questions answered to the best of my abilities. Discharge Planning Not yet cleared by report specialist. Jonah Jamison MD May 09, 2017 08:58
[2017-05-09] MEDS: SODIUM CHLORIDE 0.9% FLUSH 10 ML FLUSH IV FLUSH SCH ×2 (09:00→20:23)
[2017-05-09] MEDS: PREGABALIN 25 MG CAP PO SCH ×2 (09:14→20:22)
[2017-05-09] MEDS: TOPIRAMATE 25 MG TAB PO SCH ×2 (09:15→20:23)
[2017-05-09] MEDS: ENALAPRIL MALEATE 2.5 MG TAB PO SCH ×2 (09:15→20:23)
[2017-05-09] MEDS: PETROLATUM 49%/ZINC OXIDE 15% 4 OUNCE TUBE TOPICAL SCH ×2 (09:15→09:20)
[2017-05-09] MEDS: DOCUSATE SODIUM 50 MG/SENNA 8.6 MG TAB PO SCH ×2 (09:15→20:22)
[2017-05-09 10:05] LABS: AUTOMATED NEUTROPHIL # 3.9 TH/MM3 (1.8-7.7); BASOPHIL % 0.8 % (0.0-2.0); EOSINOPHIL # 0.2 TH/MM3 (0-0.4); EOSINOPHIL % 3.2 % (0.0-4.0); HEMATOCRIT 35.4 % (35.0-46.0); LYMPH % 20.6 % (9.0-44.0); LYMPHOCYTE # 1.1 TH/MM3 (1.0-4.8); MEAN CORPUSCULAR HEMOGLOBIN 32.2 PG (27.0-34.0); MEAN CORPUSCULAR HGB CONC 32.5 % (32.0-36.0); MONO % 5.2 % (0.0-8.0); NEUT % 70.2 % (16.0-70.0); PLATELET COUNT 158 TH/MM3 (150-450); RED BLOOD COUNT 3.58 MIL/MM3 (4.00-5.30); RED CELL DISTRIBUTION WIDTH 17.5 % (11.6-17.2); WHITE BLOOD COUNT 5.5 TH/MM3 (4.0-11.0)
[2017-05-09 10:09] LABS: INTERNATIONAL NORMALIZED RATIO 1.1 RATIO; PROTHROMBIN TIME - PATIENT 12.2 SEC (9.8-11.6)
[2017-05-09 10:12] LABS: HEMO FLAGS AUTO DIFF
[2017-05-09 10:35] LABS: APTT (PATIENT) 64.4 SEC (24.3-30.1)
[2017-05-09 11:04] LABS: BANDS 1 % (0-6); BASOPHILS 2 % (0-2); EOSINOPHILS 5 % (0-4); NEUTROPHIL # MANUAL DIFF 3.9 TH/MM3 (1.8-7.7); POLYS (SEG NEUTROPHILS) 69 % (16-70); PROMYELOCYTES 1 % (0-0); SCAN/DIFF FINAL DIFF MANUAL; WBC DIFF SAMPLE 100
[2017-05-09 11:05] LABS: ACANTHOCYTES OCC (NORMAL); PLATELET ESTIMATE SMEAR NORMAL (NORMAL); PLATELET MORPHOLOGY NORMAL (NORMAL)
--- NOTE | 2017-05-09 11:20 | PD.ONC.PN ---
Subjective Subjective Remarks Afebrile overnight. Patient resting in bed in nad. Had a few drops of blood from left naris this AM, but otherwise no bleeding. Objective Data Date Time Temp Pulse Resp B/P Pulse Ox O2 Delivery O2 Flow Rate FiO2 05/09/17 09:00 Room Air 05/09/17 08:00 97.4 74 20 132/66 98 05/09/17 07:57 64 05/09/17 04:00 97.9 63 18 157/70 95 05/09/17 04:00 Room Air 05/09/17 00:00 Room Air 05/09/17 00:00 97.8 63 18 155/70 95 05/08/17 20:00 96 Room Air 21 05/08/17 20:00 98.0 62 18 132/63 96 05/08/17 20:00 62 05/08/17 16:00 97.9 72 20 186/74 98 05/08/17 12:00 98.0 76 20 179/79 96 05/09/17 05/09/17 05/09/17 07:00 15:00 23:00 Intake Total 2422 ml Output Total 1000 ml Balance 1422 ml Result Diagram: 05/09/17 0832 05/06/17 0602 Laboratory Results Laboratory Tests Test 05/09/17 08:32 White Blood Count 5.5 TH/MM3 Red Blood Count 3.58 MIL/MM3 Hemoglobin 11.5 GM/DL Hematocrit 35.4 % Mean Corpuscular Volume 99.0 FL Mean Corpuscular Hemoglobin 32.2 PG Mean Corpuscular Hemoglobin 32.5 % Concent Red Cell Distribution Width 17.5 % Platelet Count 158 TH/MM3 Mean Platelet Volume 7.6 FL Neutrophils (%) (Auto) 70.2 % Lymphocytes (%) (Auto) 20.6 % Monocytes (%) (Auto) 5.2 % Eosinophils (%) (Auto) 3.2 % Basophils (%) (Auto) 0.8 % Neutrophils # (Auto) 3.9 TH/MM3 Lymphocytes # (Auto) 1.1 TH/MM3 Monocytes # (Auto) 0.3 TH/MM3 Eosinophils # (Auto) 0.2 TH/MM3 Basophils # (Auto) 0.0 TH/MM3 CBC Comment AUTO DIFF Differential Total Cells 100 Counted Neutrophils % (Manual) 69 % Band Neutrophils % 1 % Lymphocytes % 19 % Monocytes % 3 % Eosinophils % 5 % Basophils % 2 % Neutrophils # (Manual) 3.9 TH/MM3 Promyelocytes 1 % Differential Comment FINAL DIFF MANUAL Platelet Estimate NORMAL Platelet Morphology Comment NORMAL Acanthocytes OCC Prothrombin Time 12.2 SEC Prothromb Time International 1.1 RATIO Ratio Activated Partial 64.4 SEC Thromboplast Time Administered Medications Medications (Trade) Dose Ordered Sig/Jeny Route PRN Reason Start Time Stop Time Status Last Admin Dose Admin Sodium Chloride (NS Flush) 2 ml BID IV FLUSH 05/05/17 21:00 05/08/17 09:07 Senna/Docusate Sodium (April-Colace) 1 tab BID PO 05/05/17 21:00 05/09/17 09:15 Clonidine 0.1 mg 0.1 mg Q6H PRN PO SBP> OR = 180, DBP> OR = 100 05/05/17 13:15 05/08/17 16:39 Heparin Sodium/ Dextrose (Heparin-D5W Inj) 250 ml @ 0 mls/hr TITRATE IV 05/06/17 07:00 05/08/17 12:35 Acetaminophen/ Hydrocodone Bitart ([place] 5-325 Mg) 1 tab Q4H PRN PO PAIN SCALE 3 TO 10 05/06/17 11:15 05/09/17 09:19 Morphine Sulfate (Morphine Inj) 2 mg Q6HR PRN IV PUSH chest pain 05/06/17 13:00 05/06/17 16:56 Petrolatum/Zinc Oxide (Sensi-Care Protective Barrier Oint) 1 applic DAILY TOPICAL 05/06/17 13:00 05/09/17 09:20 Topiramate (Topamax) 25 mg Q12HR PO 05/06/17 13:15 05/09/17 09:15 Enalapril Maleate (Vasotec) 2.5 mg BID PO 05/06/17 13:15 05/09/17 09:15 Montelukast Sodium (Singulair) 10 mg HS PO 05/06/17 21:00 05/08/17 20:22 Pregabalin (Lyrica) 25 mg BID PO 05/06/17 21:00 05/09/17 09:14 Warfarin Sodium (Coumadin) 2.5 mg DAILY@16 PO 05/07/17 19:30 05/08/17 16:39 Objective Remarks GENERAL: Pleasant elderly female SKIN: Warm and dry. HEAD: Normocephalic. L naris with dried blood. no active bleeding. EYES: No injection or drainage. NECK: Supple, trachea midline. CARDIOVASCULAR: Regular rate and rhythm RESPIRATORY: Breath sounds equal bilaterally. No accessory muscle use. GASTROINTESTINAL: Abdomen soft, non-tender, nondistended. EXTREMITIES: No cyanosis. clean dressing, left carlson. NEUROLOGICAL: No obvious focal deficit. Awake, alert, and oriented x3. Assessment/Plan Problem List: (1) Pulmonary embolism Status: Acute Plan: 05/09: INR remains subtherapeutic. stop Heparin, start Lovenox, continue coumadin. 05/08/17. Continue UFH bridge to therapeutic INR. Monitor for rebleeding after packing removed. If stable anticipate switch to LMWH tomorrow. Coumadin continue. Continue goal therapeutic anticoagulant therapy- for BL LE DVT and pulmonary embolism 05/07/17. Med recs still pending however, BL LE DVt confirmed. R heel vein, L distal femoral, popliteal and femoral veins- occlusive clot. Pt has DVT associated with PE, needs anticoagulant therapy. Given recurrent epistaxis, explained to pt that need to start anticoagulant therapy that we can reverse immediately. NOAC have no reversal agent. ENT evaluation still pending to assist in preventing recurrent epistaxis. Discussed risk and benefits of Coumadin, pt agree. Discussed also that she could be convert to NOAC once risk of bleeding corrected. --on heparin gtt --was on xarelto previously, but developed epistaxis. (2) Epistaxis Status: Acute Plan: 05/09: no significant bleeding. 05/08/17. Monitor for bleeding. If bleeding need to hold UFH. If bleeding trial afrin and pressing nose to stop bleeding. Saline for dry crust around outside of nose, advised no picking. 05/07/17. Packing still in place. Pending ENT recommendations. --hgb stable --ENT consulted --packing in place Assessment 86y/o female with epistaxis associated with Xarelto with recent pulmonary embolism. h/o Recent pulmonary embolism. Pneumonia. Atrial fibrillation. Coronary artery disease. Asthma/COPD. Hypertension. Hypothyroidism. History of seizure.Anxiety. Previous pelvic fracture. Right hip ORIF with hardware Plan 1. monitor CBC 2. stop heparin, start Lovenox. continue coumadin 3. Monitor for bleeding Attending Statement The exam, history, and the medical decision-making described in the above note were completed with the assistance of the mid-level provider. I reviewed and agree with the findings presented. I attest that I had a [id number] encounter with the patient on the same day, and personally performed and documented my assessment and findings in the medical record. Resting. Dry crust over L nostril. Tolerating anticoagulant therapy. Anticipate DC Lovenox when INR therapeutic. Cherie Whitfield May 09, 2017 11:20 Shawnee Medina MD May 09, 2017 19:39
[2017-05-09] MEDS: ENOXAPARIN SODIUM 60 MG/0.6 ML SYRINGE SQ SCH ×2 (12:20→23:38)
[2017-05-09] MEDS: WARFARIN SOD 1 MG TAB PO SCH (14:58)
[2017-05-09] MEDS: WARFARIN SOD 2.5 MG TAB PO SCH (14:59)
[2017-05-09] MEDS: MONTELUKAST SODIUM 10 MG TAB PO SCH (20:23)
[2017-05-10] VITALS (8 sets, daily range): BP systolic 141–170; BP diastolic 69–77; PULSE 66–85; RESP 19–20; TEMP 97.6–98.1; O2SAT 95–98
[2017-05-10] MEDS: ACETAMINOPHEN/HYDROcodone 325 MG/5 MG TAB PO PRN ×5 (03:00→21:40)
[2017-05-10 05:43] LABS: APTT (PATIENT) 30.6 SEC (24.3-30.1)
[2017-05-10 05:44] LABS: INTERNATIONAL NORMALIZED RATIO 1.3 RATIO; PROTHROMBIN TIME - PATIENT 14.6 SEC (9.8-11.6)
[2017-05-10] MEDS: CLOTRIMAZOLE 10 MG TROCHE BUCCAL SCH ×5 (06:15→21:40)
--- NOTE | 2017-05-10 08:44 | HHI.PR ---
Subjective Remarks This is a pleasant 86 y/o Female who was brought from Rehab, has Anemia, Atrial Fibrillation, CAD, COPD, Hypertension Hypothyroidism, Anxiety disorder, recently hospitalized due to Pneumonia, Pulmonary Emboli on Xarelto and Aspirin came to ER with Epistaxis and Atypical Chest pain, as per marketing content specialist to continue Unfractionated Heparin Patient seen in her bedroom eating, no complaint, has left nasal window with Packing in place. not yet seen by ENT specialist. 05/08: Seen in her bedroom, and discussed with patient and her nurse Miss Ding, also present her Daughter in law no nausea, vomit or diarrhea. ENT removed the anterior nasal packing. 05/09: Seen in her bedroom stable no new issues, not yet cleared for discharge by specialists 05/10: Stable to continue with Warfarin, bridge with Lovenox, no nausea, vomit or diarrhea, discussed with nurse. Objective Vital Signs Date Time Temp Pulse Resp B/P Pulse Ox O2 Delivery O2 Flow Rate FiO2 05/10/17 08:00 97.9 74 20 144/69 96 05/10/17 04:00 98.1 66 20 142/69 96 05/10/17 00:07 98.0 68 20 159/70 97 05/10/17 00:00 Room Air 05/09/17 20:00 97.5 78 20 140/77 95 05/09/17 20:00 Room Air 05/09/17 19:19 73 05/09/17 18:00 95 21 05/09/17 16:00 97.9 71 20 158/73 95 05/09/17 12:00 97.7 63 20 156/71 96 05/09/17 09:00 Room Air 05/09/17 08:47 99 I/O 05/09/17 05/09/17 05/09/17 05/10/17 05/10/17 05/10/17 07:00 15:00 23:00 07:00 15:00 23:00 Intake Total 2422 ml 953 ml 364 ml 120 ml Output Total 1000 ml 550 ml 350 ml Balance 1422 ml 403 ml 14 ml 120 ml Intake Oral 240 ml 480 ml 360 ml 120 ml IV Total 182 ml 473 ml 4 ml Other 2000 ml Output Urine Total 1000 ml 550 ml 350 ml # Voids 1 1 3 # Bowel Movements 0 1 1 0 Result Diagram: 05/09/17 0832 05/06/17 0602 Imaging Last Impressions Lower Extremity Ultrasound 05/06/17 0000 Signed Impressions: Service Date/Time: Saturday, May 06, 2017 20:53 - CONCLUSION: 1. DVT is present bilaterally as described above. Delta Montero MD Chest X-Ray 05/05/17 1051 Signed Impressions: Service Date/Time: Friday, May 05, 2017 11:10 - CONCLUSION: Normal examination. Mild diffuse interstitial prominence particularly lung bases improved since January Iker Jesus MD Procedures Left anterior nasal Packing Other Results Laboratory Tests Test 05/06/17 05/09/17 05/10/17 06:02 08:32 04:46 Ovalocytes 1+ Sodium Level 135 MEQ/L Potassium Level 4.0 MEQ/L Chloride Level 103 MEQ/L Carbon Dioxide Level 26.7 MEQ/L Anion Gap 5 MEQ/L Blood Urea Nitrogen 18 MG/DL Creatinine 0.62 MG/DL Estimat Glomerular Filtration 92 ML/MIN Rate Random Glucose 76 MG/DL Calcium Level 7.8 MG/DL White Blood Count 5.5 TH/MM3 Red Blood Count 3.58 MIL/MM3 Hemoglobin 11.5 GM/DL Hematocrit 35.4 % Mean Corpuscular Volume 99.0 FL Mean Corpuscular Hemoglobin 32.2 PG Mean Corpuscular Hemoglobin 32.5 % Concent Red Cell Distribution Width 17.5 % Platelet Count 158 TH/MM3 Mean Platelet Volume 7.6 FL Neutrophils (%) (Auto) 70.2 % Lymphocytes (%) (Auto) 20.6 % Monocytes (%) (Auto) 5.2 % Eosinophils (%) (Auto) 3.2 % Basophils (%) (Auto) 0.8 % Neutrophils # (Auto) 3.9 TH/MM3 Lymphocytes # (Auto) 1.1 TH/MM3 Monocytes # (Auto) 0.3 TH/MM3 Eosinophils # (Auto) 0.2 TH/MM3 Basophils # (Auto) 0.0 TH/MM3 CBC Comment AUTO DIFF Differential Total Cells 100 Counted Neutrophils % (Manual) 69 % Band Neutrophils % 1 % Lymphocytes % 19 % Monocytes % 3 % Eosinophils % 5 % Basophils % 2 % Neutrophils # (Manual) 3.9 TH/MM3 Promyelocytes 1 % Differential Comment FINAL DIFF MANUAL Platelet Estimate NORMAL Platelet Morphology Comment NORMAL Acanthocytes OCC Prothrombin Time 14.6 SEC Prothromb Time International 1.3 RATIO Ratio Activated Partial 30.6 SEC Thromboplast Time Objective Remarks GENERAL: Well-nourished, well-developed pleasant elderly female patient in NAD. SKIN: Warm and dry. No rash. HEAD: Normocephalic. Atraumatic. EYES: Pupils equal and round. No scleral icterus. No injection or drainage. ENT: Left nare with some crusted blood. NECK: Supple. Trachea midline. CARDIOVASCULAR: Regular rate and rhythm. S1, S2 noted. No murmur appreciated. RESPIRATORY: No accessory muscle use. Clear to auscultation. Breath sounds equal bilaterally. GASTROINTESTINAL: Abdomen soft, non-tender, nondistended. Normoactive bowel sounds x4. MUSCULOSKELETAL: No obvious deformities. Extremities without clubbing, cyanosis , or edema. NEUROLOGICAL: Awake and alert. No obvious cranial nerve deficits. Motor grossly within normal limits. Normal speech. PSYCHIATRIC: Appropriate mood and affect; insight and judgment normal. Medications and IVs Current Medications Medications (Trade) Dose Ordered Sig/Jeny Route Start Time Stop Time Status Last Admin (NS Flush) 2 ml UNSCH PRN IV FLUSH 05/05/17 13:15 (NS Flush) 2 ml BID IV FLUSH 05/05/17 21:00 05/09/17 20:23 (Zofran Inj) 4 mg Q6H PRN IVP 05/05/17 13:15 (Tylenol) 650 mg Q6H PRN PO 05/05/17 13:15 (Narcan Inj) 0.4 mg UNSCH PRN IV 05/05/17 13:15 (April-Colace) 1 tab BID PO 05/05/17 21:00 05/09/17 20:22 (Milk Of Magnesia Liq) 30 ml Q12H PRN PO 05/05/17 13:15 (Senokot) 17.2 mg Q12H PRN PO 05/05/17 13:15 (Dulcolax Supp) 10 mg DAILY PRN RECTAL 05/05/17 13:15 (Lactulose Liq) 30 ml DAILY PRN PO 05/05/17 13:15 (Catapres) 0.1 mg Q6H PRN PO 05/05/17 13:15 05/08/17 16:39 (Vasotec Inj) 1.25 mg Q6H PRN IV PUSH 05/05/17 13:15 (Nitrostat Sl) 0.4 mg Q5M PRN SL 05/05/17 14:45 ([place] 5-325 Mg) 1 tab Q4H PRN PO 05/06/17 11:15 05/10/17 07:14 (Morphine Inj) 2 mg Q6HR PRN IV PUSH 05/06/17 13:00 05/06/17 16:56 (Sensi-Care Protective Barrier Oint) 1 applic DAILY TOPICAL 05/06/17 13:00 05/09/17 09:20 (Topamax) 25 mg Q12HR PO 05/06/17 13:15 05/09/17 20:23 (Vasotec) 2.5 mg BID PO 05/06/17 13:15 05/09/17 20:23 (Singulair) 10 mg HS PO 05/06/17 21:00 05/09/17 20:23 (Lyrica) 25 mg BID PO 05/06/17 21:00 05/09/17 20:22 Temazepam 15 mg 15 mg HS PRN PO 05/06/17 13:15 (Coumadin Consult Pharmacy) 0 ml @ 0 mls/hr UNSCH OTHER 05/07/17 19:30 (Coumadin) 2.5 mg DAILY@16 PO 05/07/17 19:30 05/09/17 14:59 ([place] Siva [place]) 2 spray Q4H PRN EACH NARE 05/08/17 14:00 (Afrin 0.05% Siva [place]) 2 spray Q12H PRN NASAL 05/08/17 14:00 (Lovenox Inj) 60 mg Q12H SQ 05/09/17 12:00 05/09/17 23:38 (Coumadin) 1 mg DAILY@16 PO 05/09/17 16:00 05/09/17 14:58 A/P Assessment and Plan 86-year-old female from [facility] with history of anemia, atrial fibrillation, CAD, asthma/COPD, HTN, hypothyroidism, anxiety, recent hospitalization for pneumonia and pulmonary embolism on Xarelto, presents with chest pains and epistaxis. Subacute Pulmonary Embolism: diagnosed last week while hospitalized at [facility]. She developed epistaxis while on Xarelto. Patient still with ongoing chest pains at times. Hematology consult appreciated. -holding patient's Xarelto for now. Held Heparin and start Lovenox and continue Warfarin not yet therapeutic INR. today 1.3 -oxygen and nebs as needed. Incentive spirometry. Acute Posterior Epistaxis: s/p left nasal packing in the ED. -given Kcentra injection in the ED to reverse coagulopathy -holding patient's Xarelto. on Lovenox and Warfarin. -monitor H&H, currently stable. -Removed Nasal packing Chest Pain: suspect secondary to pulmonary embolism, however symptoms relieved by Nitro/Morphine. Initial troponin 0.04, and EKG without acute ST elevation/ depression but does have q waves in inferior leads, consistent with previous EKG in 2014. -Cardiac enzymes stable. -pain control as needed. -Monitor on telemetry Angular Cheilitis with Oropharyngeal Candidiasis: patient with evidence of thrush on buccal mucosa with angular cheilitis -start on clotrimazole troches 5x/day [id number] All other medical conditions stable, continue home medications once med list updated. DVT Prophylaxis: Heparin gtt and Warfarin Discussed with patient and nurse, all questions answered to the best of my abilities. Discharge Planning Not yet cleared by marketing content specialist. Jonah Jamison MD May 10, 2017 08:44
[2017-05-10] MEDS: PETROLATUM 49%/ZINC OXIDE 15% 4 OUNCE TUBE TOPICAL SCH (09:00)
[2017-05-10] MEDS: DOCUSATE SODIUM 50 MG/SENNA 8.6 MG TAB PO SCH ×2 (09:00→21:39)
--- NOTE | 2017-05-10 10:35 | PD.ONC.PN ---
Subjective Subjective Remarks Afebrile overnight. Patient getting washed up at bedside. No bleeding. Tolerating injections. Objective Data Date Time Temp Pulse Resp B/P Pulse Ox O2 Delivery O2 Flow Rate FiO2 05/10/17 08:00 97.9 74 20 144/69 96 05/10/17 04:00 98.1 66 20 142/69 96 05/10/17 00:07 98.0 68 20 159/70 97 05/10/17 00:00 Room Air 05/09/17 20:00 97.5 78 20 140/77 95 05/09/17 20:00 Room Air 05/09/17 19:19 73 05/09/17 18:00 95 21 05/09/17 16:00 97.9 71 20 158/73 95 05/09/17 12:00 97.7 63 20 156/71 96 05/10/17 05/10/17 05/10/17 07:00 15:00 23:00 Intake Total 120 ml Balance 120 ml Result Diagram: 05/09/17 0832 05/06/17 0602 Laboratory Results Laboratory Tests Test 05/10/17 04:46 Prothrombin Time 14.6 SEC Prothromb Time International 1.3 RATIO Ratio Activated Partial 30.6 SEC Thromboplast Time Administered Medications Medications (Trade) Dose Ordered Sig/Jeny Route PRN Reason Start Time Stop Time Status Last Admin Dose Admin Sodium Chloride (NS Flush) 2 ml BID IV FLUSH 05/05/17 21:00 05/09/17 20:23 Senna/Docusate Sodium (April-Colace) 1 tab BID PO 05/05/17 21:00 05/09/17 20:22 Clonidine (Catapres) 0.1 mg Q6H PRN PO SBP> OR = 180, DBP> OR = 100 05/05/17 13:15 05/08/17 16:39 Acetaminophen/ Hydrocodone Bitart ([place] 5-325 Mg) 1 tab Q4H PRN PO PAIN SCALE 3 TO 10 05/06/17 11:15 05/10/17 07:14 Morphine Sulfate (Morphine Inj) 2 mg Q6HR PRN IV PUSH chest pain 05/06/17 13:00 05/06/17 16:56 Petrolatum/Zinc Oxide (Sensi-Care Protective Barrier Oint) 1 applic DAILY TOPICAL 05/06/17 13:00 05/09/17 09:20 Topiramate (Topamax) 25 mg Q12HR PO 05/06/17 13:15 05/09/17 20:23 Enalapril Maleate (Vasotec) 2.5 mg BID PO 05/06/17 13:15 05/09/17 20:23 Montelukast Sodium (Singulair) 10 mg HS PO 05/06/17 21:00 05/09/17 20:23 Pregabalin (Lyrica) 25 mg BID PO 05/06/17 21:00 05/09/17 20:22 Warfarin Sodium (Coumadin) 2.5 mg DAILY@16 PO 05/07/17 19:30 05/09/17 14:59 Enoxaparin Sodium (Lovenox Inj) 60 mg Q12H SQ 05/09/17 12:00 05/09/17 23:38 Warfarin Sodium (Coumadin) 1 mg DAILY@16 PO 05/09/17 16:00 05/09/17 14:58 Objective Remarks GENERAL: Pleasant elderly female sitting [facility]. SKIN: Warm and dry. HEAD: Normocephalic. L nare has dried blood clot. no active bleeding. EYES: No injection or drainage. NECK: Supple, trachea midline. CARDIOVASCULAR: Regular rate and rhythm RESPIRATORY: Breath sounds equal bilaterally. No accessory muscle use. GASTROINTESTINAL: Abdomen soft, non-tender, nondistended. EXTREMITIES: No cyanosis. NEUROLOGICAL: No obvious focal deficit. Awake, alert, and oriented x3. Assessment/Plan Problem List: (1) Pulmonary embolism Status: Acute Plan: 05/10: continue Lovenox to coumadin bridge. monitor INR 05/09: INR remains subtherapeutic. stop Heparin, start Lovenox, continue coumadin. 05/08/17. Continue UFH bridge to therapeutic INR. Monitor for rebleeding after packing removed. If stable anticipate switch to LMWH tomorrow. Coumadin continue. Continue goal therapeutic anticoagulant therapy- for BL LE DVT and pulmonary embolism 05/07/17. Med recs still pending however, BL LE DVt confirmed. R heel vein, L distal femoral, popliteal and femoral veins- occlusive clot. Pt has DVT associated with PE, needs anticoagulant therapy. Given recurrent epistaxis, explained to pt that need to start anticoagulant therapy that we can reverse immediately. NOAC have no reversal agent. ENT evaluation still pending to assist in preventing recurrent epistaxis. Discussed risk and benefits of Coumadin, pt agree. Discussed also that she could be convert to NOAC once risk of bleeding corrected. --on heparin gtt --was on xarelto previously, but developed epistaxis. (2) Epistaxis Status: Acute Plan: 05/10: no bleeding. 05/08/17. Monitor for bleeding. If bleeding need to hold UFH. If bleeding trial afrin and pressing nose to stop bleeding. Saline for dry crust around outside of nose, advised no picking. 05/07/17. Packing still in place. Pending ENT recommendations. --hgb stable --ENT consulted --packing in place Assessment 86y/o female with epistaxis associated with Xarelto with recent pulmonary embolism. h/o Recent pulmonary embolism. Pneumonia. Atrial fibrillation. Coronary artery disease. Asthma/COPD. Hypertension. Hypothyroidism. History of seizure.Anxiety. Previous pelvic fracture. Right hip ORIF with hardware Attending Statement Denies Further nosebleed Old scab at the nose Patient has pulmonary embolism On Lovenox Bridge to Coumadin The exam, history, and the medical decision-making described in the above note were completed with the assistance of the mid-level provider. I reviewed and agree with the findings presented. I attest that I had a [id number] encounter with the patient on the same day, and personally performed and documented my assessment and findings in the medical record. Cherie Whitfield May 10, 2017 10:35 Manny Bryant MD May 11, 2017 00:10
[2017-05-10] MEDS: PREGABALIN 25 MG CAP PO SCH ×2 (11:09→21:39)
[2017-05-10] MEDS: TOPIRAMATE 25 MG TAB PO SCH ×2 (11:09→21:40)
[2017-05-10] MEDS: ENALAPRIL MALEATE 2.5 MG TAB PO SCH ×2 (11:09→21:39)
[2017-05-10] MEDS: SODIUM CHLORIDE 0.9% FLUSH 10 ML FLUSH IV FLUSH SCH ×2 (11:11→21:40)
[2017-05-10] MEDS: ENOXAPARIN SODIUM 60 MG/0.6 ML SYRINGE SQ SCH (11:14)
[2017-05-10] MEDS: WARFARIN SOD 2.5 MG TAB PO SCH (15:48)
[2017-05-10] MEDS: WARFARIN SOD 1 MG TAB PO SCH (15:48)
[2017-05-10] MEDS: MONTELUKAST SODIUM 10 MG TAB PO SCH (21:39)
[2017-05-11] VITALS (8 sets, daily range): BP systolic 108–178; BP diastolic 60–85; PULSE 66–82; RESP 18–20; TEMP 97.6–98.7; O2SAT 94–97
[2017-05-11] MEDS: ENOXAPARIN SODIUM 60 MG/0.6 ML SYRINGE SQ SCH ×2 (00:20→12:29)
[2017-05-11] MEDS: CLOTRIMAZOLE 10 MG TROCHE BUCCAL SCH ×5 (05:26→20:11)
[2017-05-11] MEDS: ACETAMINOPHEN/HYDROcodone 325 MG/5 MG TAB PO PRN ×4 (05:26→20:12)
[2017-05-11 07:03] LABS: AUTOMATED NEUTROPHIL # 3.5 TH/MM3 (1.8-7.7); BASOPHIL % 0.6 % (0.0-2.0); EOSINOPHIL # 0.2 TH/MM3 (0-0.4); EOSINOPHIL % 3.2 % (0.0-4.0); HEMATOCRIT 36.3 % (35.0-46.0); HEMO FLAGS DIFF FINAL; LYMPH % 23.5 % (9.0-44.0); LYMPHOCYTE # 1.3 TH/MM3 (1.0-4.8); MEAN CELL VOLUME 97.3 FL (80.0-100.0); MEAN CORPUSCULAR HEMOGLOBIN 32.2 PG (27.0-34.0); MEAN CORPUSCULAR HGB CONC 33.1 % (32.0-36.0); MONO % 7.3 % (0.0-8.0); NEUT % 65.4 % (16.0-70.0); PLATELET COUNT 159 TH/MM3 (150-450); RED BLOOD COUNT 3.73 MIL/MM3 (4.00-5.30); RED CELL DISTRIBUTION WIDTH 17.2 % (11.6-17.2); WHITE BLOOD COUNT 5.4 TH/MM3 (4.0-11.0)
[2017-05-11 07:34] LABS: INTERNATIONAL NORMALIZED RATIO 1.6 RATIO; PROTHROMBIN TIME - PATIENT 18.1 SEC (9.8-11.6)
[2017-05-11] MEDS: TOPIRAMATE 25 MG TAB PO SCH ×2 (08:48→20:11)
[2017-05-11] MEDS: ENALAPRIL MALEATE 2.5 MG TAB PO SCH ×2 (08:48→20:11)
[2017-05-11] MEDS: PREGABALIN 25 MG CAP PO SCH ×2 (08:48→20:11)
[2017-05-11] MEDS: DOCUSATE SODIUM 50 MG/SENNA 8.6 MG TAB PO SCH ×2 (08:48→20:11)
[2017-05-11] MEDS: SODIUM CHLORIDE 0.9% FLUSH 10 ML FLUSH IV FLUSH SCH ×2 (08:49→20:11)
[2017-05-11] MEDS: cloNIDine HCL 0.1 MG TAB PO PRN (12:29)
--- NOTE | 2017-05-11 13:12 | HHI.PR ---
Subjective Remarks This is a pleasant 86 y/o Female who was brought from Rehab, has Anemia, Atrial Fibrillation, CAD, COPD, Hypertension Hypothyroidism, Anxiety disorder, recently hospitalized due to Pneumonia, Pulmonary Emboli on Xarelto and Aspirin came to ER with Epistaxis and Atypical Chest pain, as per speech language specialist to continue Unfractionated Heparin Patient seen in her bedroom eating, no complaint, has left nasal window with Packing in place. not yet seen by ENT specialist. 05/08: Seen in her bedroom, and discussed with patient and her nurse Miss Ding, also present her Daughter in law no nausea, vomit or diarrhea. ENT removed the anterior nasal packing. 05/09: Seen in her bedroom stable no new issues, not yet cleared for discharge by specialists 05/10: Stable to continue with Warfarin, bridge with Lovenox, no nausea, vomit or diarrhea, discussed with nurse. 05/11: Seen in her bedroom improving condition, has uncontrolled blood pressure added some Amlodipine and following, discussed with her daughter in the room, no nausea, vomit or diarrhea. Objective Vital Signs Date Time Temp Pulse Resp B/P Pulse Ox O2 Delivery O2 Flow Rate FiO2 05/11/17 12:00 98.3 81 20 177/70 96 05/11/17 08:00 98.7 77 20 170/77 97 05/11/17 04:00 97.9 73 19 178/85 95 05/11/17 00:00 97.6 69 18 146/71 96 05/10/17 20:57 98 05/10/17 20:00 Room Air 05/10/17 20:00 98.0 81 19 162/77 97 05/10/17 20:00 76 05/10/17 15:21 97.6 85 20 141/75 95 I/O 05/10/17 05/10/17 05/10/17 05/11/17 05/11/17 05/11/17 07:00 15:00 23:00 07:00 15:00 23:00 Intake Total 120 ml 360 ml 260 ml 140 ml Output Total 600 ml 420 ml Balance 120 ml 360 ml -340 ml -280 ml Intake Oral 120 ml 360 ml 260 ml 140 ml Output Urine Total 600 ml 420 ml # Voids 3 1 # Bowel Movements 0 1 0 0 Result Diagram: 05/11/17 0530 Imaging Last Impressions Lower Extremity Ultrasound 05/06/17 0000 Signed Impressions: Service Date/Time: Saturday, May 06, 2017 20:53 - CONCLUSION: 1. DVT is present bilaterally as described above. Delta Montero MD Chest X-Ray 05/05/17 1051 Signed Impressions: Service Date/Time: Friday, May 05, 2017 11:10 - CONCLUSION: Normal examination. Mild diffuse interstitial prominence particularly lung bases improved since January Iker Jesus MD Procedures Left anterior nasal Packing Other Results Laboratory Tests Test 05/09/17 05/10/17 05/11/17 08:32 04:46 05:30 Differential Total Cells 100 Counted Neutrophils % (Manual) 69 % Band Neutrophils % 1 % Lymphocytes % 19 % Monocytes % 3 % Eosinophils % 5 % Basophils % 2 % Neutrophils # (Manual) 3.9 TH/MM3 Promyelocytes 1 % Platelet Estimate NORMAL Platelet Morphology Comment NORMAL Acanthocytes OCC Activated Partial 30.6 SEC Thromboplast Time White Blood Count 5.4 TH/MM3 Red Blood Count 3.73 MIL/MM3 Hemoglobin 12.0 GM/DL Hematocrit 36.3 % Mean Corpuscular Volume 97.3 FL Mean Corpuscular Hemoglobin 32.2 PG Mean Corpuscular Hemoglobin 33.1 % Concent Red Cell Distribution Width 17.2 % Platelet Count 159 TH/MM3 Mean Platelet Volume 7.6 FL Neutrophils (%) (Auto) 65.4 % Lymphocytes (%) (Auto) 23.5 % Monocytes (%) (Auto) 7.3 % Eosinophils (%) (Auto) 3.2 % Basophils (%) (Auto) 0.6 % Neutrophils # (Auto) 3.5 TH/MM3 Lymphocytes # (Auto) 1.3 TH/MM3 Monocytes # (Auto) 0.4 TH/MM3 Eosinophils # (Auto) 0.2 TH/MM3 Basophils # (Auto) 0.0 TH/MM3 CBC Comment DIFF FINAL Differential Comment Prothrombin Time 18.1 SEC Prothromb Time International 1.6 RATIO Ratio Objective Remarks GENERAL: Well-nourished, well-developed pleasant elderly female patient in [facility]. SKIN: Warm and dry. No rash. HEAD: Normocephalic. Atraumatic. EYES: Pupils equal and round. No scleral icterus. No injection or drainage. ENT: Left nare with some crusted blood. NECK: Supple. Trachea midline. CARDIOVASCULAR: Regular rate and rhythm. S1, S2 noted. No murmur appreciated. RESPIRATORY: No accessory muscle use. Clear to auscultation. Breath sounds equal bilaterally. GASTROINTESTINAL: Abdomen soft, non-tender, nondistended. Normoactive bowel sounds x4. MUSCULOSKELETAL: No obvious deformities. Extremities without clubbing, cyanosis , or edema. NEUROLOGICAL: Awake and alert. No obvious cranial nerve deficits. Motor grossly within normal limits. Normal speech. PSYCHIATRIC: Appropriate mood and affect; insight and judgment normal. Medications and IVs Current Medications Medications (Trade) Dose Ordered Sig/Jeny Route Start Time Stop Time Status Last Admin (NS Flush) 2 ml UNSCH PRN IV FLUSH 05/05/17 13:15 (NS Flush) 2 ml BID IV FLUSH 05/05/17 21:00 05/11/17 08:49 (Zofran Inj) 4 mg Q6H PRN IVP 05/05/17 13:15 (Tylenol) 650 mg Q6H PRN PO 05/05/17 13:15 (Narcan Inj) 0.4 mg UNSCH PRN IV 05/05/17 13:15 (April-Colace) 1 tab BID PO 05/05/17 21:00 05/11/17 08:48 (Milk Of Magnesia Liq) 30 ml Q12H PRN PO 05/05/17 13:15 (Senokot) 17.2 mg Q12H PRN PO 05/05/17 13:15 (Dulcolax Supp) 10 mg DAILY PRN RECTAL 05/05/17 13:15 (Lactulose Liq) 30 ml DAILY PRN PO 05/05/17 13:15 (Catapres) 0.1 mg Q6H PRN PO 05/05/17 13:15 05/11/17 12:29 (Vasotec Inj) 1.25 mg Q6H PRN IV PUSH 05/05/17 13:15 (Nitrostat Sl) 0.4 mg Q5M PRN SL 05/05/17 14:45 ([place] 5-325 Mg) 1 tab Q4H PRN PO 05/06/17 11:15 05/11/17 09:23 (Morphine Inj) 2 mg Q6HR PRN IV PUSH 05/06/17 13:00 05/06/17 16:56 (Sensi-Care Protective Barrier Oint) 1 applic DAILY TOPICAL 05/06/17 13:00 05/09/17 09:20 (Topamax) 25 mg Q12HR PO 05/06/17 13:15 05/11/17 08:48 (Vasotec) 2.5 mg BID PO 05/06/17 13:15 05/11/17 08:48 (Singulair) 10 mg HS PO 05/06/17 21:00 05/10/17 21:39 (Lyrica) 25 mg BID PO 05/06/17 21:00 05/11/17 08:48 Temazepam 15 mg 15 mg HS PRN PO 05/06/17 13:15 (Coumadin Consult Pharmacy) 0 ml @ 0 mls/hr UNSCH OTHER 05/07/17 19:30 (Coumadin) 2.5 mg DAILY@16 PO 05/07/17 19:30 05/10/17 15:48 ([place] Siva [place]) 2 spray Q4H PRN EACH NARE 05/08/17 14:00 (Afrin 0.05% [facility] [place]) 2 spray Q12H PRN NASAL 05/08/17 14:00 (Lovenox Inj) 60 mg Q12H SQ 05/09/17 12:00 05/11/17 12:29 (Coumadin) 1 mg DAILY@16 PO 05/09/17 16:00 05/10/17 15:48 A/P Assessment and Plan 86-year-old female from [facility] with history of anemia, atrial fibrillation, CAD, asthma/COPD, HTN, hypothyroidism, anxiety, recent hospitalization for pneumonia and pulmonary embolism on Xarelto, presents with chest pains and epistaxis. Subacute Pulmonary Embolism: diagnosed last week while hospitalized at [facility]. She developed epistaxis while on Xarelto. Patient still with ongoing chest pains at times. Hematology consult appreciated. -holding patient's Xarelto for now. Held Heparin and start Lovenox and continue Warfarin not yet therapeutic INR. today 1.3 -oxygen and nebs as needed. Incentive spirometry. Acute Posterior Epistaxis: s/p left nasal packing in the ED. -given Kcentra injection in the ED to reverse coagulopathy -holding patient's Xarelto. on Lovenox and Warfarin. INR 1.6 -monitor H&H, currently stable. -Removed Nasal packing Chest Pain: suspect secondary to pulmonary embolism, however symptoms relieved by Nitro/Morphine. Initial troponin 0.04, and EKG without acute ST elevation/ depression but does have q waves in inferior leads, consistent with previous EKG in 2014. -Cardiac enzymes stable. -pain control as needed. -Monitor on telemetry Angular Cheilitis with Oropharyngeal Candidiasis: patient with evidence of thrush on buccal mucosa with angular cheilitis -start on clotrimazole troches 5x/day [id number] Hypertension uncontrolled added Amlodipine 5 mg and received Clonidine in am DVT Prophylaxis: Heparin gtt and Warfarin Discussed with patient and nurse Miss Ding and her Daughter, all questions answered to the best of my abilities. Discharge Planning Not yet cleared by speech language specialist. Jonah Jamison MD May 11, 2017 13:12
[2017-05-11] MEDS ORDERED: amLODIPine BESYLATE 5 MG TAB PO ONE (13:15)
[2017-05-11] MEDS: WARFARIN SOD 1 MG TAB PO SCH (15:54)
[2017-05-11] MEDS: WARFARIN SOD 2.5 MG TAB PO SCH (15:54)
[2017-05-11] MEDS ORDERED: WARFARIN SOD 1 MG TAB PO ONE (16:00)
[2017-05-11] MEDS: MONTELUKAST SODIUM 10 MG TAB PO SCH (20:11)
[2017-05-12] VITALS (10 sets, daily range): BP systolic 134–152; BP diastolic 63–85; PULSE 64–89; RESP 16–20; TEMP 97.2–98.3; O2SAT 95–97
[2017-05-12] MEDS: ENOXAPARIN SODIUM 60 MG/0.6 ML SYRINGE SQ SCH ×2 (00:10→11:59)
[2017-05-12] MEDS: ACETAMINOPHEN/HYDROcodone 325 MG/5 MG TAB PO PRN ×4 (00:10→14:09)
[2017-05-12] MEDS: CLOTRIMAZOLE 10 MG TROCHE BUCCAL SCH ×5 (04:58→22:18)
[2017-05-12 07:09] LABS: INTERNATIONAL NORMALIZED RATIO 1.9 RATIO; PROTHROMBIN TIME - PATIENT 21.6 SEC (9.8-11.6)
[2017-05-12] MEDS: SODIUM CHLORIDE 0.9% FLUSH 10 ML FLUSH IV FLUSH SCH ×2 (08:59→21:00)
[2017-05-12] MEDS: ENALAPRIL MALEATE 2.5 MG TAB PO SCH ×2 (09:00→22:18)
[2017-05-12] MEDS: PETROLATUM 49%/ZINC OXIDE 15% 4 OUNCE TUBE TOPICAL SCH (09:00)
[2017-05-12] MEDS: TOPIRAMATE 25 MG TAB PO SCH ×2 (09:00→22:18)
[2017-05-12] MEDS: amLODIPine BESYLATE 5 MG TAB PO SCH (09:00)
[2017-05-12] MEDS: PREGABALIN 25 MG CAP PO SCH ×2 (09:00→22:18)
[2017-05-12] MEDS: DOCUSATE SODIUM 50 MG/SENNA 8.6 MG TAB PO SCH ×2 (09:00→21:00)
--- NOTE | 2017-05-12 13:50 | HHI.PR ---
Subjective Remarks This is a pleasant 86 y/o Female who was brought from Rehab, has Anemia, Atrial Fibrillation, CAD, COPD, Hypertension Hypothyroidism, Anxiety disorder, recently hospitalized due to Pneumonia, Pulmonary Emboli on Xarelto and Aspirin came to ER with Epistaxis and Atypical Chest pain, as per event set up specialist to continue Unfractionated Heparin Patient seen in her bedroom eating, no complaint, has left nasal window with Packing in place. not yet seen by ENT specialist. 05/08: Seen in her bedroom, and discussed with patient and her nurse Miss Ding, also present her Daughter in law no nausea, vomit or diarrhea. ENT removed the anterior nasal packing. 05/09: Seen in her bedroom stable no new issues, not yet cleared for discharge by specialists 05/10: Stable to continue with Warfarin, bridge with Lovenox, no nausea, vomit or diarrhea, discussed with nurse. 05/11: Seen in her bedroom improving condition, has uncontrolled blood pressure added some Amlodipine and following, discussed with her daughter in the room. 05/12: Seen in her bedroom, no nausea, vomit or diarrhea, not bleeding, better control of her blood pressure. Objective Vital Signs Date Time Temp Pulse Resp B/P Pulse Ox O2 Delivery O2 Flow Rate FiO2 05/12/17 12:00 97.2 89 20 147/68 97 05/12/17 08:44 95 21 05/12/17 08:00 98.3 87 20 152/70 95 05/12/17 04:00 97.7 64 18 134/85 97 05/12/17 00:00 97.5 75 16 138/65 96 05/11/17 20:00 98.1 71 18 127/60 97 05/11/17 20:00 73 05/11/17 20:00 Room Air 05/11/17 18:48 95 21 05/11/17 16:00 98.0 72 18 135/64 94 I/O 05/11/17 05/11/17 05/11/17 05/12/17 05/12/17 05/12/17 06:59 14:59 22:59 06:59 14:59 22:59 Intake Total 140 ml 480 ml 240 ml 240 ml Output Total 420 ml Balance -280 ml 480 ml 240 ml 240 ml Intake Oral 140 ml 480 ml 240 ml 240 ml Output Urine Total 420 ml # Voids 3 2 4 # Bowel Movements 0 1 1 0 Result Diagram: 05/11/17 0530 Imaging Last Impressions Lower Extremity Ultrasound 05/06/17 0000 Signed Impressions: Service Date/Time: Saturday, May 06, 2017 20:53 - CONCLUSION: 1. DVT is present bilaterally as described above. Delta Montero MD Chest X-Ray 05/05/17 1051 Signed Impressions: Service Date/Time: Friday, May 05, 2017 11:10 - CONCLUSION: Normal examination. Mild diffuse interstitial prominence particularly lung bases improved since January Iker Jesus MD Procedures Left anterior nasal Packing Other Results Laboratory Tests Test 05/09/17 05/10/17 05/11/17 05/12/17 08:32 04:46 05:30 06:12 Differential Total Cells 100 Counted Neutrophils % (Manual) 69 % Band Neutrophils % 1 % Lymphocytes % 19 % Monocytes % 3 % Eosinophils % 5 % Basophils % 2 % Neutrophils # (Manual) 3.9 TH/MM3 Promyelocytes 1 % Platelet Estimate NORMAL Platelet Morphology Comment NORMAL Acanthocytes OCC Activated Partial 30.6 SEC Thromboplast Time White Blood Count 5.4 TH/MM3 Red Blood Count 3.73 MIL/MM3 Hemoglobin 12.0 GM/DL Hematocrit 36.3 % Mean Corpuscular Volume 97.3 FL Mean Corpuscular Hemoglobin 32.2 PG Mean Corpuscular Hemoglobin 33.1 % Concent Red Cell Distribution Width 17.2 % Platelet Count 159 TH/MM3 Mean Platelet Volume 7.6 FL Neutrophils (%) (Auto) 65.4 % Lymphocytes (%) (Auto) 23.5 % Monocytes (%) (Auto) 7.3 % Eosinophils (%) (Auto) 3.2 % Basophils (%) (Auto) 0.6 % Neutrophils # (Auto) 3.5 TH/MM3 Lymphocytes # (Auto) 1.3 TH/MM3 Monocytes # (Auto) 0.4 TH/MM3 Eosinophils # (Auto) 0.2 TH/MM3 Basophils # (Auto) 0.0 TH/MM3 CBC Comment DIFF FINAL Differential Comment Prothrombin Time 21.6 SEC Prothromb Time International 1.9 RATIO Ratio Objective Remarks GENERAL: Well-nourished, well-developed pleasant elderly female patient in [facility]. SKIN: Warm and dry. No rash. HEAD: Normocephalic. Atraumatic. EYES: Pupils equal and round. No scleral icterus. No injection or drainage. ENT: Left nare with some crusted blood. NECK: Supple. Trachea midline. CARDIOVASCULAR: Regular rate and rhythm. S1, S2 noted. No murmur appreciated. RESPIRATORY: No accessory muscle use. Clear to auscultation. Breath sounds equal bilaterally. GASTROINTESTINAL: Abdomen soft, non-tender, nondistended. Normoactive bowel sounds x4. MUSCULOSKELETAL: No obvious deformities. Extremities without clubbing, cyanosis , or edema. NEUROLOGICAL: Awake and alert. No obvious cranial nerve deficits. Motor grossly within normal limits. Normal speech. PSYCHIATRIC: Appropriate mood and affect; insight and judgment normal. Medications and IVs Current Medications Medications (Trade) Dose Ordered Sig/Jeny Route Start Time Stop Time Status Last Admin (NS Flush) 2 ml UNSCH PRN IV FLUSH 05/05/17 13:15 (NS Flush) 2 ml BID IV FLUSH 05/05/17 21:00 05/12/17 08:59 (Zofran Inj) 4 mg Q6H PRN IVP 05/05/17 13:15 (Tylenol) 650 mg Q6H PRN PO 05/05/17 13:15 (Narcan Inj) 0.4 mg UNSCH PRN IV 05/05/17 13:15 (April-Colace) 1 tab BID PO 05/05/17 21:00 05/12/17 09:00 (Milk Of Magnesia Liq) 30 ml Q12H PRN PO 05/05/17 13:15 (Senokot) 17.2 mg Q12H PRN PO 05/05/17 13:15 (Dulcolax Supp) 10 mg DAILY PRN RECTAL 05/05/17 13:15 (Lactulose Liq) 30 ml DAILY PRN PO 05/05/17 13:15 (Catapres) 0.1 mg Q6H PRN PO 05/05/17 13:15 05/11/17 12:29 (Vasotec Inj) 1.25 mg Q6H PRN IV PUSH 05/05/17 13:15 (Nitrostat Sl) 0.4 mg Q5M PRN SL 05/05/17 14:45 ([place] 5-325 Mg) 1 tab Q4H PRN PO 05/06/17 11:15 05/12/17 09:01 (Morphine Inj) 2 mg Q6HR PRN IV PUSH 05/06/17 13:00 05/06/17 16:56 (Sensi-Care Protective Barrier Oint) 1 applic DAILY TOPICAL 05/06/17 13:00 05/09/17 09:20 (Topamax) 25 mg Q12HR PO 05/06/17 13:15 05/12/17 09:00 (Vasotec) 2.5 mg BID PO 05/06/17 13:15 05/12/17 09:00 (Singulair) 10 mg HS PO 05/06/17 21:00 05/11/17 20:11 (Lyrica) 25 mg BID PO 05/06/17 21:00 05/12/17 09:00 Temazepam 15 mg 15 mg HS PRN PO 05/06/17 13:15 (Coumadin Consult Pharmacy) 0 ml @ 0 mls/hr UNSCH OTHER 05/07/17 19:30 (Coumadin) 2.5 mg DAILY@16 PO 05/07/17 19:30 05/11/17 15:54 ([place] [facility]iva [place]) 2 spray Q4H PRN EACH NARE 05/08/17 14:00 (Afrin 0.05% [facility] [place]) 2 spray Q12H PRN NASAL 05/08/17 14:00 (Lovenox Inj) 60 mg Q12H SQ 05/09/17 12:00 05/12/17 11:59 (Coumadin) 1 mg DAILY@16 PO 05/09/17 16:00 05/11/17 15:54 (Norvasc) 5 mg DAILY PO 05/12/17 09:00 05/12/17 09:00 A/P Assessment and Plan 86-year-old female from [facility] with history of anemia, atrial fibrillation, CAD, asthma/COPD, HTN, hypothyroidism, anxiety, recent hospitalization for pneumonia and pulmonary embolism on Xarelto, presents with chest pains and epistaxis. Subacute Pulmonary Embolism: diagnosed last week while hospitalized at [facility]. She developed epistaxis while on Xarelto. Patient still with ongoing chest pains at times. Hematology consult appreciated. -holding patient's Xarelto for now. Held Heparin and start Lovenox and continue Warfarin not yet therapeutic INR. today 1.9 -oxygen and nebs as needed. Incentive spirometry. Acute Posterior Epistaxis: s/p left nasal packing in the ED. last Hemoglobin 12 -given Kcentra injection in the ED to reverse coagulopathy -holding patient's Xarelto. on Lovenox and Warfarin. INR 1.9 Chest Pain: suspect secondary to pulmonary embolism, however symptoms relieved by Nitro/Morphine. Initial troponin 0.04, and EKG without acute ST elevation/ depression but does have q waves in inferior leads, consistent with previous EKG in 2014. -Cardiac enzymes stable. -pain control as needed. -Monitor on telemetry Angular Cheilitis with Oropharyngeal Candidiasis: patient with evidence of thrush on buccal mucosa with angular cheilitis -start on clotrimazole troches 5x/day [id number] Hypertension uncontrolled added Amlodipine 5 mg and received Clonidine in am, Better control. DVT Prophylaxis: Heparin gtt and Warfarin INR 1.9 Discussed with patient, all questions answered to the best of my abilities. Discharge Planning Not yet cleared by event set up specialist. Jonah Jamison MD May 12, 2017 13:50 Jonah Jamison MD May 12, 2017 13:50
--- NOTE | 2017-05-12 15:32 | PD.ONC.PN ---
Subjective Subjective Remarks Afebrile overnight. Patient resting in bed in nad. Feeling fatigued today. States she is more winded with walking to the bathroom. She would like to speak with the member of technical staff Dr. Ye again. No bleeding. Objective Data Date Time Temp Pulse Resp B/P Pulse Ox O2 Delivery O2 Flow Rate FiO2 05/12/17 12:00 97.2 89 20 147/68 97 05/12/17 08:44 95 21 05/12/17 08:00 98.3 87 20 152/70 95 05/12/17 04:00 97.7 64 18 134/85 97 05/12/17 00:00 97.5 75 16 138/65 96 05/11/17 20:00 98.1 71 18 127/60 97 05/11/17 20:00 73 05/11/17 20:00 Room Air 05/11/17 18:48 95 21 05/11/17 16:00 98.0 72 18 135/64 94 05/12/17 05/12/17 05/12/17 07:00 15:00 23:00 Intake Total 240 ml Balance 240 ml Result Diagram: 05/11/17 0530 Laboratory Results Laboratory Tests Test 05/12/17 06:12 Prothrombin Time 21.6 SEC Prothromb Time International 1.9 RATIO Ratio Administered Medications Medications (Trade) Dose Ordered Sig/Jeny Route PRN Reason Start Time Stop Time Status Last Admin Dose Admin Sodium Chloride (NS Flush) 2 ml BID IV FLUSH 05/05/17 21:00 05/12/17 08:59 Senna/Docusate Sodium (April-Colace) 1 tab BID PO 05/05/17 21:00 05/12/17 09:00 Clonidine (Catapres) 0.1 mg Q6H PRN PO SBP> OR = 180, DBP> OR = 100 05/05/17 13:15 05/11/17 12:29 Acetaminophen/ Hydrocodone Bitart ([place] 5-325 Mg) 1 tab Q4H PRN PO PAIN SCALE 3 TO 10 05/06/17 11:15 05/12/17 14:09 Morphine Sulfate (Morphine Inj) 2 mg Q6HR PRN IV PUSH chest pain 05/06/17 13:00 05/06/17 16:56 Petrolatum/Zinc Oxide (Sensi-Care Protective Barrier Oint) 1 applic DAILY TOPICAL 05/06/17 13:00 05/09/17 09:20 Topiramate (Topamax) 25 mg Q12HR PO 05/06/17 13:15 05/12/17 09:00 Enalapril Maleate (Vasotec) 2.5 mg BID PO 05/06/17 13:15 05/12/17 09:00 Montelukast Sodium (Singulair) 10 mg HS PO 05/06/17 21:00 05/11/17 20:11 Pregabalin (Lyrica) 25 mg BID PO 05/06/17 21:00 05/12/17 09:00 Warfarin Sodium (Coumadin) 2.5 mg DAILY@16 PO 05/07/17 19:30 05/11/17 15:54 Enoxaparin Sodium (Lovenox Inj) 60 mg Q12H SQ 05/09/17 12:00 05/12/17 11:59 Warfarin Sodium (Coumadin) 1 mg DAILY@16 PO 05/09/17 16:00 05/11/17 15:54 Amlodipine Besylate (Norvasc) 5 mg DAILY PO 05/12/17 09:00 05/12/17 09:00 Objective Remarks GENERAL: Pleasant elderly female supine in bed. SKIN: Warm and dry. HEAD: Normocephalic. L nare with dried blood. no active bleeding. EYES: No injection or drainage. NECK: Supple, trachea midline. CARDIOVASCULAR: Regular rate and rhythm RESPIRATORY: Breath sounds equal bilaterally. No accessory muscle use. GASTROINTESTINAL: Abdomen soft, non-tender, nondistended. EXTREMITIES: No cyanosis. NEUROLOGICAL: awake and alert, normal speech. moving all extremities. Assessment/Plan Problem List: (1) Pulmonary embolism Status: Acute Plan: 05/12: INR 1.9. stop Lovenox. continue coumadin. 05/10: continue Lovenox to coumadin bridge. monitor INR 05/09: INR remains subtherapeutic. stop Heparin, start Lovenox, continue coumadin. 05/08/17. Continue UFH bridge to therapeutic INR. Monitor for rebleeding after packing removed. If stable anticipate switch to LMWH tomorrow. Coumadin continue. Continue goal therapeutic anticoagulant therapy- for BL LE DVT and pulmonary embolism 05/07/17. Med recs still pending however, BL LE DVt confirmed. R heel vein, L distal femoral, popliteal and femoral veins- occlusive clot. Pt has DVT associated with PE, needs anticoagulant therapy. Given recurrent epistaxis, explained to pt that need to start anticoagulant therapy that we can reverse immediately. NOAC have no reversal agent. ENT evaluation still pending to assist in preventing recurrent epistaxis. Discussed risk and benefits of Coumadin, pt agree. Discussed also that she could be convert to NOAC once risk of bleeding corrected. --on heparin gtt --was on xarelto previously, but developed epistaxis. (2) Epistaxis Status: Acute Plan: 05/12: no bleeding. 05/08/17. Monitor for bleeding. If bleeding need to hold UFH. If bleeding trial afrin and pressing nose to stop bleeding. Saline for dry crust around outside of nose, advised no picking. 05/07/17. Packing still in place. Pending ENT recommendations. --hgb stable --ENT consulted --packing in place Assessment 86y/o female with epistaxis associated with Xarelto with recent pulmonary embolism. h/o Recent pulmonary embolism. Pneumonia. Atrial fibrillation. Coronary artery disease. Asthma/COPD. Hypertension. Hypothyroidism. History of seizure.Anxiety. Previous pelvic fracture. Right hip ORIF with hardware Plan 1. monitor CBC 2. stop Lovenox. continue coumadin. 3. patient more dyspneic and is asking to speak with the member of technical staff again. Daughter at bedside concerned bc she does not want her to receive breathing treatments as that is what caused the epistaxis. they are asking to speak with pulmonology again. will reconsult pulmonology. d/w Dr. Williamson, Dr. Medina Attending Statement The exam, history, and the medical decision-making described in the above note were completed with the assistance of the mid-level provider. I reviewed and agree with the findings presented. I attest that I had a [id number] encounter with the patient on the same day, and personally performed and documented my assessment and findings in the medical record. Pt seen and examined. NO bleeding. Crust on outer L nare still present. Tolerating Coumadin, no need for acute reversal. Cont with anticoagulant tx with Coumadin. Defer to PCP or treating physician if wish to switch to NOAC when more stable. No nose bleeds on Coumadin. Ok to DC Lovenox. Cherie Whitfield May 12, 2017 15:32 Shawnee Medina MD May 12, 2017 18:30
--- NOTE | 2017-05-12 16:11 | RADRPT ---
EXAM DATE/TIME: 05/12/2017 15:48 [place] COMPARISON: CHEST SINGLE AP, May 05, 2017, 11:10. INDICATIONS : Short of breath. MEDICAL HISTORY : Chronic obstructive pulmonary disease. pneumonia, asthma SURGICAL HISTORY : None. ENCOUNTER: Initial ACUITY: 1 day PAIN SCORE: 0/10 LOCATION: Bilateral chest FINDINGS: A single view of the chest demonstrates the lungs to be symmetrically aerated without evidence of mas s, infiltrate or effusion. Mild chronic interstitial changes at the bases. This is stable. The cardio mediastinal contours are unremarkable. Osseous structures are intact. CONCLUSION: No acute disease. Melvin Zavala Jr., MD on May 12, 2017 at 16:06 Board Certified Radiologist. This report was verified electronically.
[2017-05-12] MEDS: WARFARIN SOD 2.5 MG TAB PO SCH (16:47)
[2017-05-12] MEDS: WARFARIN SOD 1 MG TAB PO SCH (16:47)
[2017-05-12] MEDS: methylPREDNISolone SOD SUCC 40 MG/1 ML VIAL IV PUSH SCH ×2 (18:48→22:18)
[2017-05-12] MEDS: FLUTICASONE 100 MCG/VILANTEROL 25 MCG INHALER INH SCH (19:05)
[2017-05-12] MEDS: MONTELUKAST SODIUM 10 MG TAB PO SCH (22:18)
[2017-05-13] VITALS (9 sets, daily range): BP systolic 128–173; BP diastolic 56–84; PULSE 83–92; RESP 16–18; TEMP 97.6–98.3; O2SAT 96–98
[2017-05-13] MEDS: ACETAMINOPHEN/HYDROcodone 325 MG/5 MG TAB PO PRN ×4 (03:34→21:49)
[2017-05-13] MEDS: methylPREDNISolone SOD SUCC 40 MG/1 ML VIAL IV PUSH SCH ×3 (06:31→21:50)
[2017-05-13] MEDS: CLOTRIMAZOLE 10 MG TROCHE BUCCAL SCH ×5 (06:32→21:44)
--- NOTE | 2017-05-13 07:13 | MB ---
cc: BRIAN HERNANDEZ DATE OF CONSULTATION 05/12/[address] Williamson REASON FOR CONSULTATION Bronchial asthma exacerbation. HISTORY OF PRESENT ILLNESS Ms. Blood is a pleasant 86-year-old female who has a longstanding history of bronchial asthma. Usually she is maintained with inhaled steroid and she does very well. The patient has a history of DVT and pulmonary embolism, also history of atrial fibrillation. She had a recent hip fracture. She has not been very active. She was admitted in the hospital because of serious nosebleed. She was on Xarelto. The patient has nasal packing done and she was seen by ENT specialist. The nasal bleeding has stopped. She was started on heparin, now she is on Coumadin. INR is 1.9. She has mild shortness of breath, has wheezing. Does not have any cough or expectoration. No fever or chills. PAST MEDICAL HISTORY Significant for - 1. History of DVT, pulmonary embolism. 2. Atrial fibrillation. 3. Coronary artery disease. 4. Life long asthma. 5. Hypothyroidism. 6. Anxiety disorder. 7. History of right hip surgery. 8. History of cataract surgery. MEDICATIONS She is currently taking - 1. Amlodipine 5 mg. 2. Coumadin 1 mg. 3. Afrin nose spray. 4. Singulair 10 mg a day. 5. Topamax 25 mg a day. 6. Lyrica 25 mg twice a day. 7. Enalapril 2.5 mg twice a day. 8. Temazepam 15 mg at nighttime. 9. Mycelex troches five times a day. 10. Clonidine p.r.n. ALLERGIES ADHESIVE TAPE. CODEINE. PHENOBARBITAL. SOCIAL HISTORY She is a , has no history of smoking or alcohol abuse. She lives alone. FAMILY HISTORY She has two daughters who live nearby. REVIEW OF SYSTEMS The patient says that normally she is pretty active and was participating in [employer]. She has no headache, dizziness. No malignancy. No seizure or stroke or epilepsy. PHYSICAL EXAMINATION GENERAL: Elderly female, not in acute distress. VITAL SIGNS: Blood pressure 147/68, heart rate 18, respirations 20, temperature 97.2. HEENT EXAMINATION: Pupils are equal and reactive to light. She has had bilateral cataract surgery done. Oral mucosa, nasal mucosa normal. NECK: JVP not raised. CHEST: She has fine rales and has a few expiratory rhonchi. CV: S1 and S2 is normal. ABDOMEN: Soft, nondistended. Bowel sounds are present. EXTREMITIES: No edema. ELECTRICAL EQUIPMENT TESTER: Alert and oriented x 3. No focal deficit. IMAGING STUDIES Her chest x-ray shows no acute disease. Her ultrasound of the lower extremity shows DVT present bilaterally. IMPRESSION 1. Shortness of breath with mild exacerbation of bronchial asthma. She is stable on room air. X-ray shows no acute infiltrate. 2. DVT. 3. Pulmonary embolism. 4. Severe epistaxis has resolved. 5. History of coronary artery disease. 6. History of atrial fibrillation. PLAN 1. I discussed with the patient, I will give her a short course of steroids with Solu-Medrol 40 mg q.8 hours. 2. I will also start her on Breo Ellipta 100/25 once a day aerosol treatment as needed. She is stable on room air 3. Further treatment will depend on her course in hospital. Thank you Dr. Williamson for this consult. Brian Hernandez MD ADA/SSB /5:57 PM /7:02 AM
[2017-05-13] MEDS: ENALAPRIL MALEATE 2.5 MG TAB PO SCH ×2 (07:57→21:43)
[2017-05-13] MEDS: amLODIPine BESYLATE 5 MG TAB PO SCH (07:57)
[2017-05-13] MEDS: SODIUM CHLORIDE 0.9% FLUSH 10 ML FLUSH IV FLUSH SCH ×2 (07:57→21:00)
[2017-05-13] MEDS: PREGABALIN 25 MG CAP PO SCH ×2 (07:58→21:43)
[2017-05-13] MEDS: DOCUSATE SODIUM 50 MG/SENNA 8.6 MG TAB PO SCH ×2 (07:58→21:00)
[2017-05-13] MEDS: TOPIRAMATE 25 MG TAB PO SCH ×2 (07:58→21:43)
[2017-05-13] MEDS: FLUTICASONE 100 MCG/VILANTEROL 25 MCG INHALER INH SCH (08:00)
[2017-05-13] MEDS: PETROLATUM 49%/ZINC OXIDE 15% 4 OUNCE TUBE TOPICAL SCH (08:02)
[2017-05-13 08:26] LABS: AUTOMATED NEUTROPHIL # 4.5 TH/MM3 (1.8-7.7); BASOPHIL % 0.2 % (0.0-2.0); HEMATOCRIT 37.1 % (35.0-46.0); HEMO FLAGS DIFF FINAL; LYMPH % 23.1 % (9.0-44.0); LYMPHOCYTE # 1.4 TH/MM3 (1.0-4.8); MEAN CELL VOLUME 97.4 FL (80.0-100.0); MEAN CORPUSCULAR HEMOGLOBIN 32.5 PG (27.0-34.0); MEAN CORPUSCULAR HGB CONC 33.4 % (32.0-36.0); MONO % 1.7 % (0.0-8.0); PLATELET COUNT 214 TH/MM3 (150-450); RED BLOOD COUNT 3.81 MIL/MM3 (4.00-5.30); RED CELL DISTRIBUTION WIDTH 17.5 % (11.6-17.2)
[2017-05-13 08:33] LABS: INTERNATIONAL NORMALIZED RATIO 1.8 RATIO; PROTHROMBIN TIME - PATIENT 20.7 SEC (9.8-11.6)
--- NOTE | 2017-05-13 09:18 | PD.ONC.PN ---
Subjective Subjective Remarks Afebrile overnight. No bleeding. Feeling better after steroids started by pulmonology. daughter at bedside. Objective Data Date Time Temp Pulse Resp B/P Pulse Ox O2 Delivery O2 Flow Rate FiO2 05/13/17 08:51 97 21 05/13/17 07:54 Room Air 05/13/17 04:00 97.7 85 16 140/73 96 05/13/17 00:00 98.3 83 16 129/62 97 05/12/17 20:17 80 05/12/17 20:00 97.5 86 18 136/63 97 05/12/17 19:28 Room Air 05/12/17 17:08 81 05/12/17 17:08 96 Room Air 05/12/17 16:58 96 05/12/17 16:00 97.7 79 20 150/72 96 05/12/17 12:00 97.2 89 20 147/68 97 Result Diagram: 05/13/17 0711 Laboratory Results Laboratory Tests Test 05/13/17 07:11 White Blood Count 6.0 TH/MM3 Red Blood Count 3.81 MIL/MM3 Hemoglobin 12.4 GM/DL Hematocrit 37.1 % Mean Corpuscular Volume 97.4 FL Mean Corpuscular Hemoglobin 32.5 PG Mean Corpuscular Hemoglobin 33.4 % Concent Red Cell Distribution Width 17.5 % Platelet Count 214 TH/MM3 Mean Platelet Volume 7.4 FL Neutrophils (%) (Auto) 75.0 % Lymphocytes (%) (Auto) 23.1 % Monocytes (%) (Auto) 1.7 % Eosinophils (%) (Auto) 0.0 % Basophils (%) (Auto) 0.2 % Neutrophils # (Auto) 4.5 TH/MM3 Lymphocytes # (Auto) 1.4 TH/MM3 Monocytes # (Auto) 0.1 TH/MM3 Eosinophils # (Auto) 0.0 TH/MM3 Basophils # (Auto) 0.0 TH/MM3 CBC Comment DIFF FINAL Differential Comment Prothrombin Time 20.7 SEC Prothromb Time International 1.8 RATIO Ratio Administered Medications Medications (Trade) Dose Ordered Sig/Jeny Route PRN Reason Start Time Stop Time Status Last Admin Dose Admin Sodium Chloride (NS Flush) 2 ml BID IV FLUSH 05/05/17 21:00 05/13/17 07:57 Senna/Docusate Sodium (April-Colace) 1 tab BID PO 05/05/17 21:00 05/12/17 09:00 Clonidine (Catapres) 0.1 mg Q6H PRN PO SBP> OR = 180, DBP> OR = 100 05/05/17 13:15 05/11/17 12:29 Acetaminophen/ Hydrocodone Bitart ([place] 5-325 Mg) 1 tab Q4H PRN PO PAIN SCALE 3 TO 10 05/06/17 11:15 05/13/17 03:34 Morphine Sulfate (Morphine Inj) 2 mg Q6HR PRN IV PUSH chest pain 05/06/17 13:00 05/06/17 16:56 Petrolatum/Zinc Oxide (Sensi-Care Protective Barrier Oint) 1 applic DAILY TOPICAL 05/06/17 13:00 05/13/17 08:02 Topiramate (Topamax) 25 mg Q12HR PO 05/06/17 13:15 05/13/17 07:58 Enalapril Maleate (Vasotec) 2.5 mg BID PO 05/06/17 13:15 05/13/17 07:57 Montelukast Sodium (Singulair) 10 mg HS PO 05/06/17 21:00 05/12/17 22:18 Pregabalin (Lyrica) 25 mg BID PO 05/06/17 21:00 05/13/17 07:58 Warfarin Sodium (Coumadin) 2.5 mg DAILY@16 PO 05/07/17 19:30 05/12/17 16:47 Warfarin Sodium (Coumadin) 1 mg DAILY@16 PO 05/09/17 16:00 05/12/17 16:47 Amlodipine Besylate (Norvasc) 5 mg DAILY PO 05/12/17 09:00 05/13/17 07:57 Methylprednisolone Sodium Succinate (SoluMEDROL INJ) 40 mg Q8HR IV PUSH 05/12/17 18:00 05/13/17 06:31 Fluticasone/ Vilanterol (Breo Ellipta 100-25 Inh) 1 puff DAILY INH 05/12/17 18:00 05/13/17 08:00 Objective Remarks GENERAL: Elderly female supine in bed [facility]. SKIN: Warm and dry. HEAD: Normocephalic. dried blood in left naris. EYES: No injection or drainage. NECK: Supple, trachea midline. CARDIOVASCULAR: Regular rate and rhythm RESPIRATORY: anterior mcneill clear GASTROINTESTINAL: Abdomen soft, non-tender, nondistended. EXTREMITIES: No cyanosis. NEUROLOGICAL: aox3. normal speech. Assessment/Plan Problem List: (1) Pulmonary embolism Status: Acute Plan: 05/12: continue coumadin. monitor INR 05/12: INR 1.9. stop Lovenox. continue coumadin. 05/10: continue Lovenox to coumadin bridge. monitor INR 05/09: INR remains subtherapeutic. stop Heparin, start Lovenox, continue coumadin. 05/08/17. Continue UFH bridge to therapeutic INR. Monitor for rebleeding after packing removed. If stable anticipate switch to LMWH tomorrow. Coumadin continue. Continue goal therapeutic anticoagulant therapy- for BL LE DVT and pulmonary embolism 05/07/17. Med recs still pending however, BL LE DVt confirmed. R heel vein, L distal femoral, popliteal and femoral veins- occlusive clot. Pt has DVT associated with PE, needs anticoagulant therapy. Given recurrent epistaxis, explained to pt that need to start anticoagulant therapy that we can reverse immediately. NOAC have no reversal agent. ENT evaluation still pending to assist in preventing recurrent epistaxis. Discussed risk and benefits of Coumadin, pt agree. Discussed also that she could be convert to NOAC once risk of bleeding corrected. --was on xarelto previously, but developed epistaxis. (2) Epistaxis Status: Acute Plan: 05/13: no bleeding. crusting improving 05/12: no bleeding. 05/08/17. Monitor for bleeding. If bleeding need to hold UFH. If bleeding trial afrin and pressing nose to stop bleeding. Saline for dry crust around outside of nose, advised no picking. 05/07/17. Packing still in place. Pending ENT recommendations. --hgb stable --ENT consulted --packing in place Assessment 86y/o female with epistaxis associated with Xarelto with recent pulmonary embolism. h/o Recent pulmonary embolism. Pneumonia. Atrial fibrillation. Coronary artery disease. Asthma/COPD. Hypertension. Hypothyroidism. History of seizure.Anxiety. Previous pelvic fracture. Right hip ORIF with hardware Plan 1. monitor CBC 2. continue coumadin. Attending Statement Agree with above. Cherie Whitfield May 13, 2017 09:18 Shawnee Medina MD May 13, 2017 21:34
--- NOTE | 2017-05-13 09:27 | HHI.PR ---
Subjective Remarks This is a pleasant 86 y/o Female who was brought from Rehab, has Anemia, Atrial Fibrillation, CAD, COPD, Hypertension Hypothyroidism, Anxiety disorder, recently hospitalized due to Pneumonia, Pulmonary Emboli on Xarelto and Aspirin came to ER with Epistaxis and Atypical Chest pain, as per customer service specialist to continue Unfractionated Heparin Patient seen in her bedroom eating, no complaint, has left nasal window with Packing in place. not yet seen by ENT specialist. 05/08: Seen in her bedroom, and discussed with patient and her nurse Miss Ding, also present her Daughter in law no nausea, vomit or diarrhea. ENT removed the anterior nasal packing. 05/09: Seen in her bedroom stable no new issues, not yet cleared for discharge by specialists 05/10: Stable to continue with Warfarin, bridge with Lovenox, no nausea, vomit or diarrhea, discussed with nurse. 05/11: Seen in her bedroom improving condition, has uncontrolled blood pressure added some Amlodipine and following, discussed with her daughter in the room. 05/12: Seen in her bedroom, not bleeding, better control of her blood pressure. 05/13: Patient with her Daughter Miss Samantha Blood in her bedroom, today Depressed wants to go home, she knows she will need to have her INR therapeutic for discharge as per customer service specialist following on daily bases, given brief support but not bleeding, No nausea, vomit or diarrhea. Objective Vital Signs Date Time Temp Pulse Resp B/P Pulse Ox O2 Delivery O2 Flow Rate FiO2 05/13/17 08:51 97 21 05/13/17 07:54 Room Air 05/13/17 04:00 97.7 85 16 140/73 96 05/13/17 00:00 98.3 83 16 129/62 97 05/12/17 20:17 80 05/12/17 20:00 97.5 86 18 136/63 97 05/12/17 19:28 Room Air 05/12/17 17:08 81 05/12/17 17:08 96 Room Air 05/12/17 16:58 96 05/12/17 16:00 97.7 79 20 150/72 96 05/12/17 12:00 97.2 89 20 147/68 97 I/O 05/12/17 05/12/17 05/12/17 05/13/17 05/13/17 05/13/17 07:00 15:00 23:00 07:00 15:00 23:00 Intake Total 240 ml 600 ml 240 ml Balance 240 ml 600 ml 240 ml Intake Oral 240 ml 600 ml 240 ml # Voids 4 4 2 # Bowel Movements 0 1 2 Result Diagram: 05/13/17 0711 Imaging Last Impressions Chest X-Ray 05/12/17 0000 Signed Impressions: Service Date/Time: Friday, May 12, 2017 15:48 - CONCLUSION: No acute disease. Melvin Zavala Jr., MD Lower Extremity Ultrasound 05/06/17 0000 Signed Impressions: Service Date/Time: Saturday, May 06, 2017 20:53 - CONCLUSION: 1. DVT is present bilaterally as described above. Delta Montero MD Procedures Left anterior nasal Packing Other Results Laboratory Tests Test 05/09/17 05/10/17 05/13/17 08:32 04:46 07:11 Differential Total Cells 100 Counted Neutrophils % (Manual) 69 % Band Neutrophils % 1 % Lymphocytes % 19 % Monocytes % 3 % Eosinophils % 5 % Basophils % 2 % Neutrophils # (Manual) 3.9 TH/MM3 Promyelocytes 1 % Platelet Estimate NORMAL Platelet Morphology Comment NORMAL Acanthocytes OCC Activated Partial 30.6 SEC Thromboplast Time White Blood Count 6.0 TH/MM3 Red Blood Count 3.81 MIL/MM3 Hemoglobin 12.4 GM/DL Hematocrit 37.1 % Mean Corpuscular Volume 97.4 FL Mean Corpuscular Hemoglobin 32.5 PG Mean Corpuscular Hemoglobin 33.4 % Concent Red Cell Distribution Width 17.5 % Platelet Count 214 TH/MM3 Mean Platelet Volume 7.4 FL Neutrophils (%) (Auto) 75.0 % Lymphocytes (%) (Auto) 23.1 % Monocytes (%) (Auto) 1.7 % Eosinophils (%) (Auto) 0.0 % Basophils (%) (Auto) 0.2 % Neutrophils # (Auto) 4.5 TH/MM3 Lymphocytes # (Auto) 1.4 TH/MM3 Monocytes # (Auto) 0.1 TH/MM3 Eosinophils # (Auto) 0.0 TH/MM3 Basophils # (Auto) 0.0 TH/MM3 CBC Comment DIFF FINAL Differential Comment Prothrombin Time 20.7 SEC Prothromb Time International 1.8 RATIO Ratio Objective Remarks GENERAL: Well-nourished, well-developed pleasant elderly female patient in NAD. SKIN: Warm and dry. No rash. HEAD: Normocephalic. Atraumatic. EYES: Pupils equal and round. No scleral icterus. No injection or drainage. ENT: Left nasal window with some crusted blood. NECK: Supple. Trachea midline. CARDIOVASCULAR: Regular rate and rhythm. S1, S2 noted. No murmur appreciated. RESPIRATORY: No accessory muscle use. Clear to auscultation. Breath sounds equal bilaterally. GASTROINTESTINAL: Abdomen soft, non-tender, nondistended. Normoactive bowel sounds x4. MUSCULOSKELETAL: No obvious deformities. Extremities without clubbing, cyanosis , or edema. NEUROLOGICAL: Awake and alert. No obvious cranial nerve deficits. Motor grossly within normal limits. Normal speech. PSYCHIATRIC: Appropriate mood and affect; insight and judgment normal. Medications and IVs Current Medications Medications (Trade) Dose Ordered Sig/Jeny Route Start Time Stop Time Status Last Admin (NS Flush) 2 ml UNSCH PRN IV FLUSH 05/05/17 13:15 (NS Flush) 2 ml BID IV FLUSH 05/05/17 21:00 05/13/17 07:57 (Zofran Inj) 4 mg Q6H PRN IVP 05/05/17 13:15 (Tylenol) 650 mg Q6H PRN PO 05/05/17 13:15 (Narcan Inj) 0.4 mg UNSCH PRN IV 05/05/17 13:15 (April-Colace) 1 tab BID PO 05/05/17 21:00 05/12/17 09:00 (Milk Of Magnesia Liq) 30 ml Q12H PRN PO 05/05/17 13:15 (Senokot) 17.2 mg Q12H PRN PO 05/05/17 13:15 (Dulcolax Supp) 10 mg DAILY PRN RECTAL 05/05/17 13:15 (Lactulose Liq) 30 ml DAILY PRN PO 05/05/17 13:15 (Catapres) 0.1 mg Q6H PRN PO 05/05/17 13:15 05/11/17 12:29 (Vasotec Inj) 1.25 mg Q6H PRN IV PUSH 05/05/17 13:15 (Nitrostat Sl) 0.4 mg Q5M PRN SL 05/05/17 14:45 ([place] 5-325 Mg) 1 tab Q4H PRN PO 05/06/17 11:15 05/13/17 03:34 (Morphine Inj) 2 mg Q6HR PRN IV PUSH 05/06/17 13:00 05/06/17 16:56 (Sensi-Care Protective Barrier Oint) 1 applic DAILY TOPICAL 05/06/17 13:00 05/13/17 08:02 (Topamax) 25 mg Q12HR PO 05/06/17 13:15 05/13/17 07:58 (Vasotec) 2.5 mg BID PO 05/06/17 13:15 05/13/17 07:57 (Singulair) 10 mg HS PO 05/06/17 21:00 05/12/17 22:18 (Lyrica) 25 mg BID PO 05/06/17 21:00 05/13/17 07:58 Temazepam 15 mg 15 mg HS PRN PO 05/06/17 13:15 (Coumadin Consult Pharmacy) 0 ml @ 0 mls/hr UNSCH OTHER 05/07/17 19:30 (Coumadin) 2.5 mg DAILY@16 PO 05/07/17 19:30 05/12/17 16:47 ([place] [facility]iva [place]) 2 spray Q4H PRN EACH NARE 05/08/17 14:00 (Afrin 0.05% [facility] [place]) 2 spray Q12H PRN NASAL 05/08/17 14:00 (Coumadin) 1 mg DAILY@16 PO 05/09/17 16:00 05/12/17 16:47 (Norvasc) 5 mg DAILY PO 05/12/17 09:00 05/13/17 07:57 (SoluMEDROL INJ) 40 mg Q8HR IV PUSH 05/12/17 18:00 05/13/17 06:31 (Breo Ellipta 100-25 Inh) 1 puff DAILY INH 05/12/17 18:00 05/13/17 08:00 A/P Assessment and Plan 86-year-old female from [facility] with history of anemia, atrial fibrillation, CAD, asthma/COPD, HTN, hypothyroidism, anxiety, recent hospitalization for pneumonia and pulmonary embolism on Xarelto, presents with chest pains and epistaxis. Subacute Pulmonary Embolism: diagnosed last week while hospitalized at [facility]. She developed epistaxis while on Xarelto. Patient still with ongoing chest pains at times. Hematology consult appreciated. -holding patient's Xarelto for now. Held Heparin and start Lovenox and continue Warfarin not yet therapeutic INR. today 1.8 -oxygen and nebs as needed. Incentive spirometry. Acute Posterior Epistaxis: s/p left nasal packing in the ED. last Hemoglobin 12 -given Kcentra injection in the ED to reverse coagulopathy -holding patient's Xarelto. on Lovenox and Warfarin. INR 1.8 Chest Pain: suspect secondary to pulmonary embolism, however symptoms relieved by Nitro/Morphine. Initial troponin 0.04, and EKG without acute ST elevation/ depression but does have q waves in inferior leads, consistent with previous EKG in 2014. Improved. -Cardiac enzymes stable. -pain control as needed. -Monitor on telemetry Angular Cheilitis with Oropharyngeal Candidiasis: patient with evidence of thrush on buccal mucosa with angular cheilitis -start on clotrimazole troches 5x/day [id number] Hypertension Controlled. DVT Prophylaxis: Heparin gtt and Warfarin INR 1.8 Discussed with patient and her Daughter in the room Miss Samantha Blood, all questions answered to the best of my abilities. Brief support given. Discharge Planning Expected by tomorrow. Jonah Jamison MD May 13, 2017 09:27
[2017-05-13] MEDS ORDERED: WARFARIN SOD 5 MG TAB PO ONE (16:00)
--- NOTE | 2017-05-13 19:25 | HHI.PR ---
Subjective Remarks 86 YOWF with Br asthma, AF,CAd Breathing much better Denies wheezing no cough Objective Vital Signs Vital Signs Date Time Temp Pulse Resp B/P Pulse Ox O2 Delivery O2 Flow Rate FiO2 05/13/17 16:00 97.8 90 18 130/62 98 05/13/17 12:00 97.6 92 18 128/56 97 05/13/17 08:51 97 21 05/13/17 08:04 92 05/13/17 08:00 98.0 92 18 173/84 98 05/13/17 07:54 Room Air 05/13/17 04:00 97.7 85 16 140/73 96 05/13/17 00:00 98.3 83 16 129/62 97 05/12/17 20:17 80 05/12/17 20:00 97.5 86 18 136/63 97 05/12/17 19:28 Room Air I/O 05/12/17 05/12/17 05/12/17 05/13/17 05/13/17 05/13/17 07:00 15:00 23:00 07:00 15:00 23:00 Intake Total 240 ml 600 ml 240 ml 380 ml Balance 240 ml 600 ml 240 ml 380 ml Intake Oral 240 ml 600 ml 240 ml 380 ml # Voids 4 4 2 5 # Bowel Movements 0 1 2 1 Result Diagram: 05/13/17 0711 Objective Remarks GENERAL: Frail elderly female, NAD SKIN: Warm and dry. HEAD: Normocephalic. EYES: No scleral icterus. No injection or drainage. NECK: Supple, trachea midline. No JVD or lymphadenopathy. CARDIOVASCULAR: Regular rate and rhythm without murmurs, gallops, or rubs. RESPIRATORY: Breath sounds equal bilaterally. No accessory muscle use. GASTROINTESTINAL: Abdomen soft, non-tender, nondistended. MUSCULOSKELETAL: No cyanosis, or edema. BACK: Nontender without obvious deformity. No CVA tenderness. A/P Assessment and Plan Bronchial asthma exac, improved AF DVT PE Epistaxis resolved PLAN: Cont Solumedrol Aerosol nebs Breo Eliipta daily Stable on Antonio Luna MD May 13, 2017 19:25
[2017-05-13] MEDS: MONTELUKAST SODIUM 10 MG TAB PO SCH (21:43)
[2017-05-14] VITALS: BP 149/67; PULSE 80; RESP 18; TEMP 97.8; O2SAT 95
[2017-05-14 04:00] VITALS: BP 152/72; PULSE 73; RESP 18; TEMP 97.7; O2SAT 96
[2017-05-14] MEDS: methylPREDNISolone SOD SUCC 40 MG/1 ML VIAL IV PUSH SCH ×2 (05:41→13:50)
[2017-05-14] MEDS: CLOTRIMAZOLE 10 MG TROCHE BUCCAL SCH ×5 (05:41→22:12)
[2017-05-14 08:00] VITALS: BP 150/85; PULSE 80; RESP 20; TEMP 98.5; O2SAT 96
[2017-05-14 09:01] LABS: INTERNATIONAL NORMALIZED RATIO 2.1 RATIO; PROTHROMBIN TIME - PATIENT 23.8 SEC (9.8-11.6)
[2017-05-14] MEDS: PREGABALIN 25 MG CAP PO SCH ×2 (09:36→22:10)
[2017-05-14] MEDS: SODIUM CHLORIDE 0.9% FLUSH 10 ML FLUSH IV FLUSH SCH ×2 (09:36→21:00)
[2017-05-14] MEDS: amLODIPine BESYLATE 5 MG TAB PO SCH (09:37)
[2017-05-14] MEDS: ENALAPRIL MALEATE 2.5 MG TAB PO SCH ×2 (09:37→22:10)
[2017-05-14] MEDS: PETROLATUM 49%/ZINC OXIDE 15% 4 OUNCE TUBE TOPICAL SCH (09:37)
[2017-05-14] MEDS: TOPIRAMATE 25 MG TAB PO SCH ×2 (09:37→22:11)
[2017-05-14] MEDS: DOCUSATE SODIUM 50 MG/SENNA 8.6 MG TAB PO SCH ×2 (09:37→21:00)
[2017-05-14] MEDS: FLUTICASONE 100 MCG/VILANTEROL 25 MCG INHALER INH SCH (09:48)
--- NOTE | 2017-05-14 11:20 | PD.ONC.PN ---
Subjective Subjective Remarks Afebrile overnight. Patient resting in bed in nad. No epistaxis. Objective Data Date Time Temp Pulse Resp B/P Pulse Ox O2 Delivery O2 Flow Rate FiO2 05/14/17 08:00 98.5 80 20 150/85 96 05/14/17 04:00 97.7 73 18 152/72 96 05/14/17 00:00 97.8 80 18 149/67 95 05/13/17 22:00 Room Air 05/13/17 20:34 88 05/13/17 20:00 97.7 87 18 146/69 97 05/13/17 16:00 97.8 90 18 130/62 98 05/13/17 12:00 97.6 92 18 128/56 97 05/14/17 05/14/17 05/14/17 07:00 15:00 23:00 Intake Total 240 ml Balance 240 ml Result Diagram: 05/13/17 0711 Laboratory Results Laboratory Tests Test 05/14/17 08:10 Prothrombin Time 23.8 SEC Prothromb Time International 2.1 RATIO Ratio Administered Medications Medications (Trade) Dose Ordered Sig/Jeny Route PRN Reason Start Time Stop Time Status Last Admin Dose Admin Sodium Chloride (NS Flush) 2 ml BID IV FLUSH 05/05/17 21:00 05/14/17 09:36 Senna/Docusate Sodium (April-Colace) 1 tab BID PO 05/05/17 21:00 05/14/17 09:37 Clonidine (Catapres) 0.1 mg Q6H PRN PO SBP> OR = 180, DBP> OR = 100 05/05/17 13:15 05/11/17 12:29 Acetaminophen/ Hydrocodone Bitart ([place] 5-325 Mg) 1 tab Q4H PRN PO PAIN SCALE 3 TO 10 05/06/17 11:15 05/13/17 21:49 Morphine Sulfate (Morphine Inj) 2 mg Q6HR PRN IV PUSH chest pain 05/06/17 13:00 05/06/17 16:56 Petrolatum/Zinc Oxide (Sensi-Care Protective Barrier Oint) 1 applic DAILY TOPICAL 05/06/17 13:00 05/14/17 09:37 Topiramate (Topamax) 25 mg Q12HR PO 05/06/17 13:15 05/14/17 09:37 Enalapril Maleate (Vasotec) 2.5 mg BID PO 05/06/17 13:15 05/14/17 09:37 Montelukast Sodium (Singulair) 10 mg HS PO 05/06/17 21:00 05/13/17 21:43 Pregabalin (Lyrica) 25 mg BID PO 05/06/17 21:00 05/14/17 09:36 Amlodipine Besylate (Norvasc) 5 mg DAILY PO 05/12/17 09:00 05/14/17 09:37 Methylprednisolone Sodium Succinate (SoluMEDROL INJ) 40 mg Q8HR IV PUSH 05/12/17 18:00 05/14/17 05:41 Fluticasone/ Vilanterol (Breo Ellipta 100-25 Inh) 1 puff DAILY INH 05/12/17 18:00 05/14/17 09:48 Objective Remarks GENERAL: Elderly female resting in bed. SKIN: Warm and dry. HEAD: Normocephalic. dried blood, left nare EYES: No injection or drainage. NECK: Supple, trachea midline. CARDIOVASCULAR: Regular rate and rhythm RESPIRATORY: anterior mcneill clear GASTROINTESTINAL: Abdomen soft, non-tender, nondistended. EXTREMITIES: No cyanosis. NEUROLOGICAL: awake and alert. Assessment/Plan Problem List: (1) Pulmonary embolism Status: Acute Plan: 05/13: INR=2.1. continue coumadin 05/12: continue coumadin. monitor INR 05/12: INR 1.9. stop Lovenox. continue coumadin. 05/10: continue Lovenox to coumadin bridge. monitor INR 05/09: INR remains subtherapeutic. stop Heparin, start Lovenox, continue coumadin. 05/08/17. Continue UFH bridge to therapeutic INR. Monitor for rebleeding after packing removed. If stable anticipate switch to LMWH tomorrow. Coumadin continue. Continue goal therapeutic anticoagulant therapy- for BL LE DVT and pulmonary embolism 05/07/17. Med recs still pending however, BL LE DVt confirmed. R heel vein, L distal femoral, popliteal and femoral veins- occlusive clot. Pt has DVT associated with PE, needs anticoagulant therapy. Given recurrent epistaxis, explained to pt that need to start anticoagulant therapy that we can reverse immediately. NOAC have no reversal agent. ENT evaluation still pending to assist in preventing recurrent epistaxis. Discussed risk and benefits of Coumadin, pt agree. Discussed also that she could be convert to NOAC once risk of bleeding corrected. --was on xarelto previously, but developed epistaxis. (2) Epistaxis Status: Acute Plan: 05/14: no bleeding. 05/08/17. Monitor for bleeding. If bleeding need to hold UFH. If bleeding trial afrin and pressing nose to stop bleeding. Saline for dry crust around outside of nose, advised no picking. 05/07/17. Packing still in place. Pending ENT recommendations. --hgb stable --ENT consulted --packing in place Assessment 86y/o female with epistaxis associated with Xarelto with recent pulmonary embolism. h/o Recent pulmonary embolism. Pneumonia. Atrial fibrillation. Coronary artery disease. Asthma/COPD. Hypertension. Hypothyroidism. History of seizure.Anxiety. Previous pelvic fracture. Right hip ORIF with hardware Plan 1. monitor CBC 2. continue coumadin. Attending Statement The exam, history, and the medical decision-making described in the above note were completed with the assistance of the mid-level provider. I reviewed and agree with the findings presented. I attest that I had a [id number] encounter with the patient on the same day, and personally performed and documented my assessment and findings in the medical record. Pt seen and examined. Continue on Coumadin w/o nose bleeds. Clot in L nare resolved. Pt c/o still hard. Using moisturizer. Looking forward to going to rehab. Cherie Whitfield May 14, 2017 11:20 Shawnee Medina MD May 14, 2017 21:31
[2017-05-14 12:00] VITALS: BP 157/81; PULSE 98; RESP 20; TEMP 97.8; O2SAT 98
[2017-05-14 16:00] VITALS: BP 152/83; PULSE 102; RESP 20; TEMP 97.6; O2SAT 95
--- NOTE | 2017-05-14 16:18 | HHI.PR ---
Subjective Remarks Follow up for subacute PE. Patient is doing well. No fever, chills. Currently on room air. Ambulating well with walker. Objective Vitals Vital Signs Date Time Temp Pulse Resp B/P Pulse Ox O2 Delivery O2 Flow Rate FiO2 05/14/17 12:11 18 05/14/17 12:00 97.8 98 20 157/81 98 05/14/17 08:00 98.5 80 20 150/85 96 05/14/17 07:15 98 Room Air 05/14/17 04:00 97.7 73 18 152/72 96 05/14/17 00:00 97.8 80 18 149/67 95 05/13/17 22:00 Room Air 05/13/17 20:34 88 05/13/17 20:00 97.7 87 18 146/69 97 I/O 05/13/17 05/13/17 05/13/17 05/14/17 05/14/17 05/14/17 07:00 15:00 23:00 07:00 15:00 23:00 Intake Total 380 ml 240 ml 240 ml Balance 380 ml 240 ml 240 ml Intake Oral 380 ml 240 ml 240 ml # Voids 5 2 3 # Bowel Movements 1 0 0 Result Diagram: 05/13/17 0711 Imaging Last Impressions Chest X-Ray 05/12/17 0000 Signed Impressions: Service Date/Time: Friday, May 12, 2017 15:48 - CONCLUSION: No acute disease. Melvin Zavala Jr., MD Lower Extremity Ultrasound 05/06/17 0000 Signed Impressions: Service Date/Time: Saturday, May 06, 2017 20:53 - CONCLUSION: 1. DVT is present bilaterally as described above. Delta Montero MD Objective Remarks GENERAL: AOx3, NAD. SKIN: Warm and dry. HEAD: Normocephalic. EYES: No scleral icterus. No injection or drainage. NECK: Supple, trachea midline. No JVD or lymphadenopathy. CARDIOVASCULAR: Regular rate and rhythm without murmurs, gallops, or rubs. RESPIRATORY: Breath sounds equal bilaterally. No accessory muscle use. GASTROINTESTINAL: Abdomen soft, non-tender, nondistended. MUSCULOSKELETAL: No cyanosis, or edema. BACK: Nontender without obvious deformity. No CVA tenderness. Procedures None. A/P Problem List: (1) Epistaxis ICD Code: R04.0 Status: Acute (2) Chest pain ICD Code: R07.9 Status: Acute (3) Pulmonary embolism ICD Code: I26.99 Status: Acute Assessment and Plan 86-year-old female from [facility] with history of anemia, atrial fibrillation, CAD, asthma/COPD, HTN, hypothyroidism, anxiety, recent hospitalization for pneumonia and pulmonary embolism on Xarelto, presents with chest pains and epistaxis. Subacute Pulmonary Embolism: diagnosed last week while hospitalized at [facility]. She developed epistaxis while on Xarelto. Patient still with ongoing chest pains at times. Hematology consult appreciated. -holding patient's Xarelto for now. Held Heparin and start Lovenox and continue Warfarin not yet therapeutic INR. today 2.1 -oxygen and nebs as needed. Incentive spirometry. Acute Posterior Epistaxis: s/p left nasal packing in the ED. last Hemoglobin 12 -given Kcentra injection in the ED to reverse coagulopathy -Continue Warfarin. PT/INR tomorrow AM. Chest Pain: suspect secondary to pulmonary embolism, however symptoms relieved by Nitro/Morphine. Initial troponin 0.04, and EKG without acute ST elevation/ depression but does have q waves in inferior leads, consistent with previous EKG in 2014. Improved. -Cardiac enzymes stable. -pain control as needed. -Monitor on telemetry Angular Cheilitis with Oropharyngeal Candidiasis: patient with evidence of thrush on buccal mucosa with angular cheilitis -start on clotrimazole 5x/day [id number] Hypertension Controlled. DVT Prophylaxis: Heparin gtt and Warfarin INR 2.1 Discharge Plan: Likely discharge to SNF tomorrow. Problem Qualifiers (1) Chest pain: Qualified Code: R07.9 - Chest pain, unspecified type Christoph Downey DO May 14, 2017 4:18 pm
[2017-05-14] MEDS: ACETAMINOPHEN/HYDROcodone 325 MG/5 MG TAB PO PRN ×2 (16:46→22:13)
--- NOTE | 2017-05-14 18:46 | HHI.PR ---
Subjective Remarks 86 YOWF with Br asthma, AF,CAD Breathing much better Denies wheezing no cough Breathing much better Appetite great Daughter at BS Objective Vital Signs Vital Signs Date Time Temp Pulse Resp B/P Pulse Ox O2 Delivery O2 Flow Rate FiO2 05/14/17 18:02 20 05/14/17 16:00 97.6 102 20 152/83 95 05/14/17 12:11 18 05/14/17 12:00 97.8 98 20 157/81 98 05/14/17 08:00 98.5 80 20 150/85 96 05/14/17 07:15 98 Room Air 05/14/17 04:00 97.7 73 18 152/72 96 05/14/17 00:00 97.8 80 18 149/67 95 05/13/17 22:00 Room Air 05/13/17 20:34 88 05/13/17 20:00 97.7 87 18 146/69 97 I/O 05/13/17 05/13/17 05/13/17 05/14/17 05/14/17 05/14/17 06:59 14:59 22:59 06:59 14:59 22:59 Intake Total 380 ml 240 ml 240 ml 720 ml 0 ml Balance 380 ml 240 ml 240 ml 720 ml 0 ml Intake Oral 380 ml 240 ml 240 ml 720 ml IV Total 0 ml # Voids 5 2 3 4 # Bowel Movements 1 0 0 2 Result Diagram: 05/13/17 0711 Objective Remarks GENERAL: Frail elderly female, NAD SKIN: Warm and dry. HEAD: Normocephalic. EYES: No scleral icterus. No injection or drainage. NECK: Supple, trachea midline. No JVD or lymphadenopathy. CARDIOVASCULAR: Regular rate and rhythm without murmurs, gallops, or rubs. RESPIRATORY: Breath sounds equal bilaterally. No accessory muscle use. GASTROINTESTINAL: Abdomen soft, non-tender, nondistended. MUSCULOSKELETAL: No cyanosis, or edema. BACK: Nontender without obvious deformity. No CVA tenderness. A/P Assessment and Plan Bronchial asthma exac, improved AF DVT PE Epistaxis resolved PLAN: DC Solumedrol Pred 10 mg bid. Aerosol nebs Breo Eliipta daily Stable on Antonio Luna MD May 14, 2017 18:46
[2017-05-14 20:00] VITALS: BP 134/67; PULSE 78; RESP 18; TEMP 98; O2SAT 96
[2017-05-14] MEDS: MONTELUKAST SODIUM 10 MG TAB PO SCH (22:11)
[2017-05-14] MEDS: predniSONE 10 MG TAB PO SCH (22:11)
[2017-05-15] VITALS: BP 156/72; PULSE 74; RESP 18; TEMP 97.9; O2SAT 98
[2017-05-15 04:00] VITALS: BP 153/81; PULSE 74; RESP 18; TEMP 97.9; O2SAT 97
[2017-05-15] MEDS: CLOTRIMAZOLE 10 MG TROCHE BUCCAL SCH ×3 (05:09→14:25)
[2017-05-15 07:04] LABS: INTERNATIONAL NORMALIZED RATIO 1.5 RATIO; PROTHROMBIN TIME - PATIENT 17.4 SEC (9.8-11.6)
[2017-05-15] MEDS: ENALAPRIL MALEATE 2.5 MG TAB PO SCH (07:47)
[2017-05-15] MEDS: PREGABALIN 25 MG CAP PO SCH (07:47)
[2017-05-15] MEDS: amLODIPine BESYLATE 5 MG TAB PO SCH (07:48)
[2017-05-15] MEDS: predniSONE 10 MG TAB PO SCH (07:48)
[2017-05-15] MEDS: TOPIRAMATE 25 MG TAB PO SCH (07:48)
[2017-05-15] MEDS: SODIUM CHLORIDE 0.9% FLUSH 10 ML FLUSH IV FLUSH SCH (07:49)
[2017-05-15] MEDS: FLUTICASONE 100 MCG/VILANTEROL 25 MCG INHALER INH SCH (07:49)
[2017-05-15] MEDS: DOCUSATE SODIUM 50 MG/SENNA 8.6 MG TAB PO SCH (07:54)
[2017-05-15] MEDS: PETROLATUM 49%/ZINC OXIDE 15% 4 OUNCE TUBE TOPICAL SCH (07:54)
[2017-05-15 08:00] VITALS: BP 162/78; PULSE 71; RESP 20; TEMP 97.7; O2SAT 97
[2017-05-15 08:26] VITALS: PULSE 77
[2017-05-15] MEDS: ACETAMINOPHEN/HYDROcodone 325 MG/5 MG TAB PO PRN (10:19)
--- NOTE | 2017-05-15 10:31 | PD.ONC.PN ---
Subjective Subjective Remarks Afebrile overnight. Patient resting in bed in nad. No epistaxis. Hopeful to go to rehab soon. Objective Data Date Time Temp Pulse Resp B/P Pulse Ox O2 Delivery O2 Flow Rate FiO2 05/15/17 08:49 Room Air 05/15/17 08:26 77 05/15/17 08:00 97.7 71 20 162/78 97 05/15/17 04:00 97.9 74 18 153/81 97 05/15/17 00:00 97.9 74 18 156/72 98 05/14/17 20:00 98.0 78 18 134/67 96 05/14/17 20:00 78 05/14/17 20:00 Room Air 05/14/17 18:02 20 05/14/17 16:00 97.6 102 20 152/83 95 05/14/17 12:11 18 05/14/17 12:00 97.8 98 20 157/81 98 05/15/17 05/15/17 05/15/17 07:00 15:00 23:00 Intake Total 0 ml Output Total 400 ml Balance -400 ml Result Diagram: 05/13/17 0711 Laboratory Results Laboratory Tests Test 05/15/17 06:08 Prothrombin Time 17.4 SEC Prothromb Time International 1.5 RATIO Ratio Administered Medications Medications (Trade) Dose Ordered Sig/Jeny Route PRN Reason Start Time Stop Time Status Last Admin Dose Admin Sodium Chloride (NS Flush) 2 ml BID IV FLUSH 05/05/17 21:00 05/15/17 07:49 Senna/Docusate Sodium (April-Colace) 1 tab BID PO 05/05/17 21:00 05/14/17 09:37 Clonidine (Catapres) 0.1 mg Q6H PRN PO SBP> OR = 180, DBP> OR = 100 05/05/17 13:15 05/11/17 12:29 Acetaminophen/ Hydrocodone Bitart ([place] 5-325 Mg) 1 tab Q4H PRN PO PAIN SCALE 3 TO 10 05/06/17 11:15 05/15/17 10:19 Morphine Sulfate (Morphine Inj) 2 mg Q6HR PRN IV PUSH chest pain 05/06/17 13:00 05/06/17 16:56 Petrolatum/Zinc Oxide (Sensi-Care Protective Barrier Oint) 1 applic DAILY TOPICAL 05/06/17 13:00 05/15/17 07:54 Topiramate (Topamax) 25 mg Q12HR PO 05/06/17 13:15 05/15/17 07:48 Enalapril Maleate (Vasotec) 2.5 mg BID PO 05/06/17 13:15 05/15/17 07:47 Montelukast Sodium (Singulair) 10 mg HS PO 05/06/17 21:00 05/14/17 22:11 Pregabalin (Lyrica) 25 mg BID PO 05/06/17 21:00 05/15/17 07:47 Amlodipine Besylate (Norvasc) 5 mg DAILY PO 05/12/17 09:00 05/15/17 07:48 Fluticasone/ Vilanterol (Breo Ellipta 100-25 Inh) 1 puff DAILY INH 05/12/17 18:00 05/15/17 07:49 Prednisone (Deltasone) 10 mg BID PO 05/14/17 21:00 05/15/17 07:48 Objective Remarks GENERAL: Elderly female sitting up in bed with daughter at bedside. SKIN: Warm and dry. HEAD: Normocephalic. no bleeding. EYES: No injection or drainage. NECK: Supple, trachea midline. CARDIOVASCULAR: Regular rate and rhythm RESPIRATORY: anterior mcneill clear GASTROINTESTINAL: Abdomen soft, non-tender, nondistended. EXTREMITIES: No cyanosis. NEUROLOGICAL: awake and alert. normal speech. moving all extremities. Assessment/Plan Problem List: (1) Pulmonary embolism Status: Acute Plan: 05/14: INR=1.5. give coumadin 6mg PO today. patient clear for discharge. 05/13: INR=2.1. continue coumadin 05/12: continue coumadin. monitor INR 05/12: INR 1.9. stop Lovenox. continue coumadin. 05/10: continue Lovenox to coumadin bridge. monitor INR 05/09: INR remains subtherapeutic. stop Heparin, start Lovenox, continue coumadin. 05/08/17. Continue UFH bridge to therapeutic INR. Monitor for rebleeding after packing removed. If stable anticipate switch to LMWH tomorrow. Coumadin continue. Continue goal therapeutic anticoagulant therapy- for BL LE DVT and pulmonary embolism 05/07/17. Med recs still pending however, BL LE DVt confirmed. R heel vein, L distal femoral, popliteal and femoral veins- occlusive clot. Pt has DVT associated with PE, needs anticoagulant therapy. Given recurrent epistaxis, explained to pt that need to start anticoagulant therapy that we can reverse immediately. NOAC have no reversal agent. ENT evaluation still pending to assist in preventing recurrent epistaxis. Discussed risk and benefits of Coumadin, pt agree. Discussed also that she could be convert to NOAC once risk of bleeding corrected. --was on xarelto previously, but developed epistaxis. (2) Epistaxis Status: Acute Plan: 05/14: no bleeding. 05/08/17. Monitor for bleeding. If bleeding need to hold UFH. If bleeding trial afrin and pressing nose to stop bleeding. Saline for dry crust around outside of nose, advised no picking. 05/07/17. Packing still in place. Pending ENT recommendations. --hgb stable --ENT consulted --packing in place Assessment 86y/o female with epistaxis associated with Xarelto with recent pulmonary embolism. h/o Recent pulmonary embolism. Pneumonia. Atrial fibrillation. Coronary artery disease. Asthma/COPD. Hypertension. Hypothyroidism. History of seizure.Anxiety. Previous pelvic fracture. Right hip ORIF with hardware Plan 1. monitor CBC 2. continue coumadin. 3. clear for discharge. Attending Statement The exam, history, and the medical decision-making described in the above note were completed with the assistance of the mid-level provider. I reviewed and agree with the findings presented. I attest that I had a [id number] encounter with the patient on the same day, and personally performed and documented my assessment and findings in the medical record. Pleasant pt without complaints. Waiting for her ride. Advised to continue Coumadin management and titration at her rehab. No nosebleeds. Cherie Whitfield May 15, 2017 10:31 Shawnee Medina MD May 15, 2017 15:55
--- NOTE | 2017-05-15 11:30 | HHI.DS ---
Discharge Summary Admission Date May 05, 2017 at 13:05 Admitting Diagnosis epistaxis. Chest pain. Coagulopathy. (1) Epistaxis ICD Code: R04.0 (2) Chest pain ICD Code: R07.9 (3) Pulmonary embolism ICD Code: I26.99 Procedures None. Brief History - From Admission 86-year-old female from [facility] with history of anemia, atrial fibrillation, CAD, asthma/COPD, HTN, hypothyroidism, anxiety, recent hospitalization for pneumonia and pulmonary embolism on Xarelto, presents with chest pains and epistaxis. The patient reports she was in [facility] in [place] for almost 2 weeks, initially diagnosed with pneumonia, then had severe chest pains during hospitalization, diagnosed with pulmonary embolism , started on Xarelto, was on the medication for almost a week, and then discharged home on Wednesday 05/02. The patient's daughter is at bedside and assists with the history. Reportedly the patient was kept in the hospital for almost 2 weeks secondary to one positive blood culture however repeat blood cultures were negative. The patient reports the next day after discharge, she develop acute left sided nosebleed while taking Xarelto. Prior to diagnosis of pulmonary embolism, she was only taking a baby aspirin daily. Last night the patient developed acute chest pain that kept her awake throughout the night. She locates the chest pain to the right upper anterior chest with radiation across to the left anterior chest; described as 8/10 constant pressure pains without any associated shortness of breath/nausea/vomiting/diaphoresis. She states she has been rubbing and holding her chest without any relief. She was given nitroglycerin x3 prior to arrival which alleviated the pain, then received IV morphine in the ED, and now the pain has resolved. Her left nare was packed with posterior packing in the ER, and now the bleeding has subsided. 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 Rivera. 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 The patient said that she felt better. She said that she did not think she was bleeding from her nose down her throat any more. She says she has had bad chest pain for the past few days and she does believe it is from the clots in her lungs. She states that she broke her femur in January and has not been very active or mobile lately. She did say yesterday was the first day she ambulated on both of her feet. She would like to go to a rehabilitation facility after hospitalization to work on her weakness. CBC/BMP: 05/13/17 0711 Significant Findings Laboratory Tests Test 05/13/17 05/14/17 05/15/17 07:11 08:10 06:08 Red Blood Count 3.81 MIL/MM3 (4.00-5.30) Red Cell Distribution Width 17.5 % (11.6-17.2) Neutrophils (%) (Auto) 75.0 % (16.0-70.0) Prothrombin Time 20.7 SEC 23.8 SEC 17.4 SEC (9.8-11.6) (9.8-11.6) (9.8-11.6) PE at Discharge GENERAL: AOx3, NAD. SKIN: Warm and dry. HEAD: Normocephalic. EYES: No scleral icterus. No injection or drainage. NECK: Supple, trachea midline. No JVD or lymphadenopathy. CARDIOVASCULAR: Regular rate and rhythm without murmurs, gallops, or rubs. RESPIRATORY: Breath sounds equal bilaterally. No accessory muscle use. GASTROINTESTINAL: Abdomen soft, non-tender, nondistended. MUSCULOSKELETAL: No cyanosis, or edema. BACK: Nontender without obvious deformity. No CVA tenderness. Pt Condition on Discharge: Good Discharge Disposition: Discharge to SNF Discharge Instructions DIET: Follow Instructions for: Heart Healthy Diet Activities you can perform: Regular-No Restrictions Christoph Downey DO May 15, 2017 11:30
[2017-05-15] MEDS ORDERED: HYDR-3516 PO (11:39)
[2017-05-15] MEDS ORDERED: CLOT10TR BUCCAL (11:39)
[2017-05-15] MEDS ORDERED: AMLO5 PO (11:39)
[2017-05-15] MEDS ORDERED: FLUT1INH INH (11:39)
[2017-05-15] MEDS ORDERED: WARF-23 PO (11:40)
[2017-05-15] MEDS ORDERED: PRED10 PO (11:40)
[2017-05-15 12:00] VITALS: BP 134/78; PULSE 89; RESP 20; TEMP 98.4; O2SAT 95
[2017-05-15] MEDS ORDERED: WARFARIN SOD 1 MG TAB PO SCH (16:00)
[2017-05-15] MEDS ORDERED: WARFARIN SOD 4 MG TAB PO SCH (16:00)
== END 2017-05-15 16:14 | DRG 175 ==
LOC: NEPE 09:12 → NEDA 13:05 → N04B 15:12
PROVIDERS: ADMIT Hospitalist; ATTEND Hospitalist
PROC: 2Y41X5Z Packing of Nasal Region using Packing Material (ICD-10-PCS; principal; 2017-05-07)
DX: I26.99 Other pulmonary embolism without acute cor pulmonale (principal); J18.9 Pneumonia, unspecified organism; B37.89 Other sites of candidiasis; D68.9 Coagulation defect, unspecified; B37.0 Candidal stomatitis; J44.0 Chronic obstructive pulmonary disease with (acute) lower respiratory infection; J45.901 Unspecified asthma with (acute) exacerbation; I82.409 Acute embolism and thrombosis of unspecified deep veins of unspecified lower extremity; I48.91 Unspecified atrial fibrillation; I10 Essential (primary) hypertension; G25.0 Essential tremor; E03.9 Hypothyroidism, unspecified; D64.9 Anemia, unspecified; G47.30 Sleep apnea, unspecified; I25.10 Atherosclerotic heart disease of native coronary artery without angina pectoris; R04.0 Epistaxis; K13.0 Diseases of lips; N28.9 Disorder of kidney and ureter, unspecified; Z85.828 Personal history of other malignant neoplasm of skin; Z87.01 Personal history of pneumonia (recurrent); Z90.710 Acquired absence of both cervix and uterus; Z91.81 History of falling; Z98.1 Arthrodesis status; Z79.01 Long term (current) use of anticoagulants
CPT/HCPCS: 71010; 80048; 80053; 81001; 82550; 83880; 84484; 85007; 85025; 85027; 85610; 85730; 93005; 93970; 94150; 96361; 96374; 96375; C9132; J1644; J1650; J2270; J2405; J2920; J7030; J7512

== ENCOUNTER 2017-07-25 17:27 | Observation (INO) | payer MEDICARE, BC ==
[~2017-07-25] VITALS: Ht 152.4 cm; Wt 54.5 kg
[~2017-07-25 17:27] MED LIST changes: +AMLO5 PO; -ASPI325T PO; -CIPR250T52 PO; +CLOT10TR BUCCAL; -ENOX40P SQ; +FLUT1INH INH; -NORC5TAB PO; +PRED10 PO; +WARF-23 PO
[2017-07-25 17:35] VITALS: BP 160/70; PULSE 83; RESP 20; O2SAT 96
[2017-07-25 17:45] VITALS: BP 160/70; PULSE 86; RESP 24; TEMP 98.2; O2SAT 94
[2017-07-25] MEDS ORDERED: TRAM50TA PO (17:57)
--- NOTE | 2017-07-25 18:21 | PD ---
HPI Chief Complaint: Chest Pain Time Seen by Provider: 17:44 Travel History International Travel<30 days: No Contact w/Intl Traveler<30days: No Traveled to known affect area: No History of Present Illness HPI 86-year-old female that presents to the ED for evaluation of right-sided chest pain and nausea and vomiting and diarrhea as well as generalized weakness for the past 3 days. Per patient she does have a history of coronary artery disease. Patient herself is somewhat of a poor historian but she is able to answer yes or no questions. For the most part she is having issues remembering the names of certain illnesses as well as medications that she takes for the most per she is able to answer correctly and if told of the name of the medications he says yes. She reports that for the past 3 day she's been feeling nauseous and having some diarrhea. No bleeding. Per patient her vomit has been bile. She denies any trauma. No sick contacts. No fevers chills or sweats. Per patient most of her pain is on the right side of the chest. Patient was given nitroglycerin on the way here and did relieve her pain. She does have a significant history of pulmonary embolism, it or fibrillation, ACS, COPD. She states that she feels short of breath as well. Does not use oxygen at home but does use inhalers. She rates her pain is 7 out of 10 but currently she is pain-free secondary to nitroglycerin. She has allergies to certain narcotics. She denies any head injury or trauma. No blurry vision or double vision. PFSH Past Medical History Hx Anticoagulant Therapy: Yes (COUMADIN ) Arthritis: Yes Asthma: Yes Atrial Fibrillation: Yes Blood Disorders: No Anxiety: Yes Heart Rhythm Problems: No Cancer: Yes (hx of skin cancers) Cardiovascular Problems: Yes (HTN ) High Cholesterol: No Chemotherapy: No Congestive Heart Failure: No COPD: Yes Coronary Artery Disease: Yes Diabetes: No Endocrine: Yes Genitourinary: Yes (BLADDER PUNCTURED AFTER PUBIC BONE FX) Headaches: Yes Hypertension: Yes Immune Disorder: No Implanted Vascular Access Dvce: Yes Musculoskeletal: Yes Neurologic: Yes (hand tremors) Psychiatric: No Respiratory: Yes (ASTHMA ) Immunizations Current: Yes Pneumonia: Yes Radiation Therapy: No Seizures: No Sleep Apnea: Yes Thyroid Disease: Yes Menopausal: Yes Past Surgical History Abdominal Surgery: Yes Body Medical Devices: screws in teeth and neck areas Cardiac Surgery: No Ear Surgery: No Endocrine Surgery: No Eye Surgery: Yes (CATARACTS) Genitourinary Surgery: Yes (BLADDER REPAir) Gynecologic Surgery: Yes (hysterectomy) Hysterectomy: Yes Oral Surgery: Yes (2006) Thoracic Surgery: No Other Surgery: Yes Social History Alcohol Use: No Tobacco Use: No Substance Use: No Allergies-Medications (Allergen,Severity, Reaction): Coded Allergies: adhesive (Unverified Allergy, Severe, skin irritation, 07/25/17) phenobarbital (Unverified Allergy, Severe, VOMITING, 07/25/17) codeine (Unverified Allergy, Intermediate, Nausea/Vomiting, 07/25/17) Uncoded Allergies: SOME NARCOTICS (Allergy, Unknown, 07/04/08) Reported Meds & Prescriptions Reported Meds & Active Scripts Active Warfarin 5 Mg Tab 5 Mg PO DAILY Prednisone 10 Mg Tab 10 Mg PO BID Breo Ellipta Inh (Fluticasone/Vilanterol) 100-25 Mcg/Act Inh 1 Puff INH DAILY Clotrimazole Meghana (Clotrimazole) 10 Mg Troc 10 Mg BUCCAL 5 TIMES A DAY 14 Days Norvasc (Amlodipine Besylate) 5 Mg Tab 5 Mg PO DAILY Restoril (Temazepam) 15 Mg Cap 15 Mg PO HS PRN Montelukast (Montelukast Sodium) 10 Mg Tab 10 Mg PO HS Duoneb (Ipratropium-Albuterol Neb) 0.5-2.5 Mg/3 Ml Neb 1 Ampule NEB Q6HR NEB PRN Reported Tramadol (Tramadol HCl) 50 Mg Tab 50 Mg PO Q6H PRN Enalapril (Enalapril Maleate) 2.5 Mg Tab Mg PO BID Topamax (Topiramate) 25 Mg Tab Mg PO BID Lyrica (Pregabalin) 25 Mg Cap 25 Mg PO BID Review of Systems Except as stated in HPI: all other systems reviewed are Neg Physical Exam Narrative GENERAL: SKIN: Warm and dry. HEAD: Atraumatic. Normocephalic. EYES: Pupils equal and round. No scleral icterus. No injection or drainage. ENT: No nasal bleeding or discharge. Mucous membranes pink and moist. Tongue is midline. No uvula deviation. NECK: Trachea midline. No JVD. CARDIOVASCULAR: Regular rate and rhythm. No murmurs, S3, S4. No reproducible chest pain. RESPIRATORY: No accessory muscle use. Clear to auscultation. Breath sounds equal bilaterally. GASTROINTESTINAL: Abdomen soft, non-tender, nondistended. Hepatic and splenic margins not palpable. MUSCULOSKELETAL: Extremities without clubbing, cyanosis, or edema. No obvious deformities. Full range of motion of the upper and lower extremities bilaterally. 2+ pulses bilaterally. NEUROLOGICAL: Awake and alert. No obvious cranial nerve deficits. Motor grossly within normal limits. Five out of 5 muscle strength in the arms and legs. Normal speech. PSYCHIATRIC: Appropriate mood and affect; insight and judgment normal. Data Data Last Documented VS Vital Signs Date Time Temp Pulse Resp B/P (MAP) Pulse Ox O2 Delivery O2 Flow Rate FiO2 07/25/17 20:47 85 18 161/73 (102) 95 07/25/17 19:16 Room Air 07/25/17 17:45 98.2 Orders Orders Electrocardiogram (07/25/17 17:51) Complete Blood Count With Diff (07/25/17 17:51) Comprehensive Metabolic Panel (07/25/17 17:51) Ckmb (Isoenzyme) Profile (07/25/17 17:51) Troponin I (07/25/17 17:51) Prothrombin Time / Inr (Pt) (07/25/17:51) Act Partial Throm Time (Ptt) (07/25/17 17:51) Blood Culture (07/25/17 17:51) Lipase (07/25/17 17:51) Urinalysis - C+S If Indicated (07/25/17 17:51) Magnesium (Mg) (07/25/17 17:51) Thyroid Stimulating Hormone (07/25/17 17:51) C Diff Toxin Pcr (07/25/17 17:51) Chest, Single Ap (07/25/17 17:51) Iv Access Insert/Monitor (07/25/17 17:51) Ecg Monitoring (07/25/17 17:51) Oximetry (07/25/17 17:51) Lactic Acid Sepsis Protocol (07/25/17 17:51) B-Type Natriuretic Peptide (07/25/17 17:51) Ondansetron Inj (Zofran Inj) (07/25/17 18:30) Sodium Chlorid 0.9% 500 Ml Inj (Ns 500 M (07/25/17 18:30) Ct Abd/Pel W Iv Contrast(Rout) (07/25/17 19:17) Ct Pulmonary Angiogram (07/25/17 19:17) Metoclopramide Inj (Reglan Inj) (07/25/17 19:30) Iohexol 350 Inj (Omnipaque 350 Inj) (07/25/17 19:49) Ceftriaxone Inj (Rocephin Inj) (07/25/17 20:45) Admit Order (Ed Use Only) (07/25/17 20:49) Labs Laboratory Tests Test 07/25/17 18:34 07/25/17 19:30 Prothrombin Time 20.1 SEC Prothromb Time International Ratio 1.8 RATIO Activated Partial Thromboplast Time 33.8 SEC Urine Color LIGHT-YELLOW Urine Turbidity HAZY Urine pH 7.0 Urine Specific [place] 1.010 Urine Protein NEG mg/dL Urine Glucose (UA) NEG mg/dL Urine Ketones 10 mg/dL Urine Occult Blood NEG Urine Nitrite NEG Urine Bilirubin NEG Urine Urobilinogen LESS THAN 2.0 MG/DL Urine Leukocyte Esterase NEG Urine WBC 1 /hpf Urine Squamous Epithelial Cells <1 /hpf Urine Mucus FEW /lpf Microscopic Urinalysis Comment CULT NOT INDICATED Blood Urea Nitrogen 10 MG/DL Creatinine 0.71 MG/DL Random Glucose 85 MG/DL Total Protein 7.3 GM/DL Albumin 3.5 GM/DL Calcium Level 9.3 MG/DL Magnesium Level 2.0 MG/DL Alkaline Phosphatase 127 U/L Aspartate Amino Transf (AST/SGOT) 27 U/L Alanine Aminotransferase (ALT/SGPT) 15 U/L Total Bilirubin 0.4 MG/DL Sodium Level 132 MEQ/L Potassium Level 3.8 MEQ/L Chloride Level 100 MEQ/L Carbon Dioxide Level 21.2 MEQ/L Anion Gap 11 MEQ/L Estimat Glomerular Filtration Rate 78 ML/MIN Lactic Acid Level 0.9 mmol/L Total Creatine Kinase 68 U/L Troponin I LESS THAN 0.02 NG/ML B-Type Natriuretic Peptide 89 PG/ML Lipase 95 U/L Thyroid Stimulating Hormone 3rd Gen 2.440 uIU/ML White Blood Count 8.9 TH/MM3 Red Blood Count 3.73 MIL/MM3 Hemoglobin 11.6 GM/DL Hematocrit 34.8 % Mean Corpuscular Volume 93.5 FL Mean Corpuscular Hemoglobin 31.0 PG Mean Corpuscular Hemoglobin Concent 33.2 % Red Cell Distribution Width 15.6 % Platelet Count 369 TH/MM3 Mean Platelet Volume 7.9 FL Neutrophils (%) (Auto) 64.9 % Lymphocytes (%) (Auto) 21.9 % Monocytes (%) (Auto) 9.0 % Eosinophils (%) (Auto) 3.0 % Basophils (%) (Auto) 1.2 % Neutrophils # (Auto) 5.8 TH/MM3 Lymphocytes # (Auto) 2.0 TH/MM3 Monocytes # (Auto) 0.8 TH/MM3 Eosinophils # (Auto) 0.3 TH/MM3 Basophils # (Auto) 0.1 TH/MM3 CBC Comment DIFF FINAL Differential Comment MDM Medical Decision Making Medical Screen Exam Complete: Yes Emergency Medical Condition: Yes Medical Record Reviewed: Yes Interpretation(s) CBC & BMP Diagram 07/25/17 18:34 Total Protein 7.3, Albumin 3.5, Calcium Level 9.3, Magnesium Level 2.0, Alkaline Phosphatase 127 H, Aspartate Amino Transf (AST/SGOT) 27, Alanine Aminotransferase (ALT/SGPT) 15, Total Bilirubin 0.4 07/25/17 19:[address] Angiography 07/25/171916 Signed Impressions: Service Date/Time: Tuesday, July 25, 2017 19:32 - CONCLUSION: 1. Negative for pulmonary embolus. 2. Mild pulmonary fibrosis. 3. Mild cervical bronchiectasis with peribronchial thickening and scattered groundglass opacity that may or present mild infectious/inflammatory changes. 4. Multiple somewhat peripheral nodular opacities are probably postinflammatory largest measuring about a centimeter in diameter the right upper lobe. David Hernadez MD Abdomen/Pelvis CT 07/25/[id number] Signed Impressions: Service Date/Time: Tuesday, July 25, 2017 19:36 - CONCLUSION: 1. No acute findings within the abdomen. Multiple remote pelvic fractures. Minimal intrahepatic biliary ductal dilatation. Colonic diverticulosis. David Hernadez MD Chest X-Ray 07/25/17 967 Signed Impressions: Service Date/Time: Tuesday, July 25, 2017 18:56 - CONCLUSION: 1. Scattered subsegmental opacity in the lungs. No effusion. No pneumothorax. David Hernadez MD Coags with INR of 1.8 troponin and CKMB negative UA negative Differential Diagnosis Chest pain versus a typical chest pain versus pulmonary embolism versus pneumonia versus typical chest pain versus pancreatitis versus cholecystitis versus acute abdomen Narrative Course 86-year-old female that presents to the ED for evaluation of chest pain, nausea vomiting diarrhea for 3 days. Patient was properly examined and was found to have signs and symptoms were greatly at this time. Appears to be more gastric in nature. Patient already takes Coumadin. EKG show no sign of ST elevation per my attending and my reading. She does have risk factors for ACS as well as PE. She does take already blood thinner. My attending was made aware of findings and agrees with plan. Labs and imaging were ordered. labs and imaging showed subtherapeutic INR so CT pulm was ordered. THis showed possible small inflammatory disease. Patient given zofran and reglan but still feeling nauseous and vomiting. Chest pain controlled. Unclear etiology of the symptoms. Because of patient's continues nausea and vomiting her chest pain as well as the comorbidities the recommend admission for observation for intractable nausea and vomiting as well as chest pain rule out. Patient will be started on ceftriaxone and azithromycin to cover for possible early pneumonia. Dr escobar agrees with plan. Dr Greco agrees to obs admission. Patient and family agree with this. Diagnosis Primary Impression: Chest pain Qualified Codes: R07.9 - Chest pain, unspecified Additional Impression: Intractable nausea and vomiting Qualified Codes: R11.2 - Nausea with vomiting, unspecified Admitting Information Admitting Physician Requests: Observation Aryan Mack Jul 25, 2017 18:21
[2017-07-25] MEDS ORDERED: SODIUM CHLORID 0.9% 500 ML INJ 500 ML IV ONE (18:30)
[2017-07-25] MEDS ORDERED: ONDANSETRON HCL 4 MG/2 ML VIAL IVP ONE (18:30)
[2017-07-25 19:00] LABS: APTT (PATIENT) 33.8 SEC (24.3-30.1); INTERNATIONAL NORMALIZED RATIO 1.8 RATIO; PROTHROMBIN TIME - PATIENT 20.1 SEC (9.8-11.6)
[2017-07-25 19:02] LABS: BLOOD, URINE NEG (NEG); COMMENT (UR) CULT NOT INDICATED; CULTURE IF INDICATED CULT NOT INDICATED; GLUCOSE,URINE NEG (NEG); KETONE, URINE 10 mg/dL (NEG); MUCUS URINE FEW /lpf (OCC); NITRITE,URINE NEG (NEG); SQUAMOUS EPITHELIAL CELL URINE <1 /hpf (0-5); URINE COLOR LIGHT-YELLOW (YELLW/STRAW)
[2017-07-25 19:11] LABS: ALT (GPT) 15 U/L (10-53)
[2017-07-25 19:16] VITALS: BP 154/73; PULSE 86; RESP 16; O2SAT 95
--- NOTE | 2017-07-25 19:16 | RADRPT ---
EXAM DATE/TIME: 07/25/2017 18:56 [facility] COMPARISON: CHEST SINGLE AP, May 12, 2017, 15:48. INDICATIONS : Chest Pain MEDICAL HISTORY : Chronic obstructive pulmonary disease. pneumonia, asthma SURGICAL HISTORY : None. ENCOUNTER: Initial ACUITY: 1 day PAIN SCORE: 5/10 LOCATION: Bilateral chest FINDINGS: A single view of the chest demonstrates minimal scattered subsegmental air space disease in the lungs , predominantly at the bases. Mildly tortuous aorta. Heart size normal. CONCLUSION: 1. Scattered subsegmental opacity in the lungs. No effusion. No pneumothorax. David Hernadez MD on July 25, 2017 at 19:13 Board Certified Radiologist. This report was verified electronically.
[2017-07-25 19:18] LABS: ANION GAP 11 MEQ/L (5-15); AST (GOT) 27 U/L (15-37); BICARBONATE 21.2 MEQ/L (21.0-32.0); BLOOD UREA NITROGEN 10 MG/DL (7-18); CHLORIDE 100 MEQ/L (98-107); GLOMERULAR FILTRATION RATE 78 ML/MIN (>89); POTASSIUM 3.8 MEQ/L (3.5-5.1); SODIUM (NA) 132 MEQ/L (136-145)
[2017-07-25 19:24] LABS: ALKALINE PHOSPHATASE 127 U/L (45-117); TOTAL BILIRUBIN ADULT 0.4 MG/DL (0.2-1.0)
[2017-07-25 19:26] LABS: CREATINE KINASE 68 U/L (26-192)
[2017-07-25] MEDS ORDERED: METOCLOPRAMIDE HCL 10 MG/2 ML VIAL IV PUSH ONE (19:30)
[2017-07-25 19:48] LABS: AUTOMATED NEUTROPHIL # 5.8 TH/MM3 (1.8-7.7); BASOPHIL # 0.1 TH/MM3 (0-0.2); BASOPHIL % 1.2 % (0.0-2.0); EOSINOPHIL # 0.3 TH/MM3 (0-0.4); HEMATOCRIT 34.8 % (35.0-46.0); HEMO FLAGS DIFF FINAL; LYMPH % 21.9 % (9.0-44.0); MEAN CELL VOLUME 93.5 FL (80.0-100.0); MEAN CORPUSCULAR HGB CONC 33.2 % (32.0-36.0); NEUT % 64.9 % (16.0-70.0); PLATELET COUNT 369 TH/MM3 (150-450); RED BLOOD COUNT 3.73 MIL/MM3 (4.00-5.30); RED CELL DISTRIBUTION WIDTH 15.6 % (11.6-17.2); WHITE BLOOD COUNT 8.9 TH/MM3 (4.0-11.0)
[2017-07-25] MEDS ORDERED: IOHEXOL 350 MG/ML 10 ML VIAL (for RAD DIAG) IVCONTRAST ONE (19:49)
--- NOTE | 2017-07-25 20:12 | RADRPT ---
EXAM DATE/TIME: 07/25/2017 19:32 [facility] COMPARISON: No previous studies available for comparison. INDICATIONS : Weakness, positive for DVT in April 2017 IV CONTRAST: 67 cc Omnipaque 350 (iohexol) IV ; Cumulative dose for multiple exams. RADIATION DOSE: 6.79 CTDIvol (mGy) MEDICAL HISTORY : Cardiovascular disease. Hypertension. SURGICAL HISTORY : Hysterectomy. Pelvic ORIF ENCOUNTER: Initial ACUITY: 1 week PAIN SCALE: 0/10 LOCATION: chest TECHNIQUE: Volumetric scanning of the chest was performed using a pulmonary embolism protocol MIP images were re constructed. Using automated exposure control and adjustment of the mA and/or kV according to patien t size, radiation dose was kept as low as reasonably achievable to obtain optimal diagnostic quality images. DICOM format image data is available electronically for review and comparison. Follow-up recommendations for detected pulmonary nodules are based at a minimum on nodule size and pa tient risk factors according to Fleischner Society Guidelines. FINDINGS: No filling defects are seen to suggest pulmonary embolic disease. There is cylindrical bronchiectasis in the lungs with some fibrotic changes that are probably postinflammatory progressed slightly since 2013 comparison. There is a multifocal groundglass opacity as some distal airway disease and peribro nchial thickening which could indicate some active inflammatory changes. There is no pleural or peric ardial effusion. Borderline enlarged mediastinal lymph nodes. No acute findings in the upper abdomen. CONCLUSION: 1. Negative for pulmonary embolus. 2. Mild pulmonary fibrosis. 3. Mild cervical bronchiectasis with peribronchial thickening and scattered groundglass opacity that may or present mild infectious/inflammatory changes. 4. Multiple somewhat peripheral nodular opacities are probably postinflammatory largest measuring abo ut a centimeter in diameter the right upper lobe. David Hernadez MD on July 25, 2017 at 20:06 Board Certified Radiologist. This report was verified electronically.
--- NOTE | 2017-07-25 20:17 | RADRPT ---
EXAM DATE/TIME: 07/25/2017 19:36 [facility] COMPARISON: No previous studies available for comparison. INDICATIONS : Weakness, nausea, and diarrhea IV CONTRAST: 67 cc Omnipaque 350 (iohexol) IV ; Cumulative dose for multiple exams. ORAL CONTRAST: No oral contrast ingested. RADIATION DOSE: 8.34 CTDIvol (mGy) MEDICAL HISTORY : Cardiovascular disease. Hypertension. SURGICAL HISTORY : Hysterectomy. Pelvic ORIF ENCOUNTER: Initial ACUITY: 1 week PAIN SCALE: 0/10 LOCATION: abdomen TECHNIQUE: Volumetric scanning of the abdomen and pelvis was performed. Using automated exposure control and ad justment of the mA and/or kV according to patient size, radiation dose was kept as low as reasonably achievable to obtain optimal diagnostic quality images. DICOM format image data is available electro nically for review and comparison. FINDINGS: Mild fibrotic changes in and cylindrical bronchiectasis the lung bases. No acute findings in the spleen, adrenals, kidneys or pancreas. Minimal intrahepatic biliary ductal d ilatation. No calcified gallstones. No free fluid. No bowel obstruction. Extensive sigmoid diverticulosis. Multiple prior pelvic fracture s status post screw fixation across the left SI joint and plate and screw fixation in the left iliac bone. Also marie fixation proximal right femur. Lumbar dextroscoliosis and advanced degenerative disc disease and right lateral subluxation of L4 on L5. CONCLUSION: 1. No acute findings within the abdomen. Multiple remote pelvic fractures. Minimal intrahepatic bilia ry ductal dilatation. Colonic diverticulosis. David Hernadez MD on July 25, 2017 at 20:11 Board Certified Radiologist. This report was verified electronically.
[2017-07-25] MEDS ORDERED: cefTRIAXone INJ 1,000 MG in SODIUM CHLORIDE 0.9% INJ 100 ML IV ONE (20:45)
[2017-07-25 20:47] VITALS: BP 161/73; PULSE 85; RESP 18; O2SAT 95
[2017-07-25] MEDS ORDERED: AZITHROMYCIN INJ 500 MG in SODIUM CHLOR 0.9% 250 ML INJ 250 ML IV ONE (21:00)
--- NOTE | 2017-07-25 21:11 | HHI.HP ---
HPI Service [facility] Primary Care Physician Gabriella Johnson Admission Diagnosis intractable nausea and vomit, chest pain, r/o ACS Diagnoses: (1) Intractable nausea and vomiting Diagnosis: Principal (2) Chest pain Diagnosis: Principal (3) Chronic anticoagulation Diagnosis: Principal (4) COPD (chronic obstructive pulmonary disease) Diagnosis: Principal (5) HTN (hypertension) Diagnosis: Principal Travel History International Travel<30 Days: No Contact w/Intl Traveler <30 Da: No Traveled to Known Affected Are: No History of Present Illness This is an 86-year-old female with a PMH of HTN, Anxiety, A. fib, h/o PE on Coumadin, CAD and COPD who presented to the ER w/ complaints of chest pain, nausea, vomiting and generalized weakness x3 days. Denies fever or chills, however history difficult to obtain. On arrival, BP 160/70, HR 86, O2 sat 94% on RA, Afebrile. CBC unremarkable. Chemistry essentially unremarkable except for GFR 78. Troponin negative. INR 1.8. UA negative. CXR w/ scattered subsegmental opacity in the lungs. CTA Pulm negative for PE, mild pulmonary fibrosis, cervical bronchiectasis with peribronchial thickening, possibly infectious/inflammatory. CT Abd/Pelvis w/ no acute findings. S/p Rocephin/ Zithro, IVF and Reglan in ER w/ minimal improvement. Review of Systems Except as stated in HPI: all other systems reviewed are Neg ROS: 14 point review of systems otherwise negative. Past Family Social History Past Medical History PMH: HTN, Anxiety, A. fib, h/o PE on Coumadin, CAD and COPD Past Surgical History PAST SURGICAL HISTORY: Hysterectomy, Cataract Surgery, Bladder Repair Allergies: Coded Allergies: adhesive (Unverified Allergy, Severe, skin irritation, 07/25/17) phenobarbital (Unverified Allergy, Severe, VOMITING, 07/25/17) codeine (Unverified Allergy, Intermediate, Nausea/Vomiting, 07/25/17) Uncoded Allergies: SOME NARCOTICS (Allergy, Unknown, 07/04/08) Family History PAST FAMILY HISTORY: Reviewed. No h/o DM or CAD Social History PAST SOCIAL HISTORY: Negative for alcohol, tobacco or drugs. Physical Exam Vital Signs Vital Signs Date Time Temp Pulse Resp B/P (MAP) Pulse Ox O2 Delivery O2 Flow Rate FiO2 07/25/17 20:47 85 18 161/73 (102) 95 07/25/17 19:16 86 16 154/73 (100) 95 Room Air 07/25/17 17:45 98.2 86 24 160/70 (100) 94 Room Air 07/25/17 17:45 86 24 94 Room Air 07/25/17 17:35 83 20 160/70 (100) 96 Physical Exam PE: GENERAL: Pleasant elderly white female in no acute distress. HEENT: PERRLA, EOMI. No scleral icterus or conjunctival pallor. No lid lag or facial droop. CARDIOVASCULAR: Regular rate and rhythm. No obvious murmurs to auscultation. No chest tenderness to palpation. RESPIRATORY: No obvious rhonchi or wheezing. Clear to auscultation. Breath sounds equal bilaterally. GASTROINTESTINAL: Abdomen soft, non-tender, nondistended. BS normal. MUSCULOSKELETAL: Extremities without clubbing, cyanosis, or edema. No obvious deformities. NEUROLOGICAL: Awake, alert. No focal neurologic deficits. Moving both upper and lower extremities spontaneously. Laboratory Laboratory Tests Test 07/25/17 18:34 07/25/17 19:30 Prothrombin Time 20.1 Prothromb Time International Ratio 1.8 Activated Partial Thromboplast Time 33.8 Urine Color LIGHT-YELLOW Urine Turbidity HAZY Urine pH 7.0 Urine Specific [place] 1.010 Urine Protein NEG Urine Glucose (UA) NEG Urine Ketones 10 Urine Occult Blood NEG Urine Nitrite NEG Urine Bilirubin NEG Urine Urobilinogen LESS THAN 2.0 Urine Leukocyte Esterase NEG Urine WBC 1 Urine Squamous Epithelial Cells <1 Urine Mucus FEW Microscopic Urinalysis Comment CULT NOT INDICATED Blood Urea Nitrogen 10 Creatinine 0.71 Random Glucose 85 Total Protein 7.3 Albumin 3.5 Calcium Level 9.3 Magnesium Level 2.0 Alkaline Phosphatase 127 Aspartate Amino Transf (AST/SGOT) 27 Alanine Aminotransferase (ALT/SGPT) 15 Total Bilirubin 0.4 Sodium Level 132 Potassium Level 3.8 Chloride Level 100 Carbon Dioxide Level 21.2 Anion Gap 11 Estimat Glomerular Filtration Rate 78 Lactic Acid Level 0.9 Total Creatine Kinase 68 Troponin I LESS THAN 0.02 B-Type Natriuretic Peptide 89 Lipase 95 Thyroid Stimulating Hormone 3rd Gen 2.440 White Blood Count 8.9 Red Blood Count 3.73 Hemoglobin 11.6 Hematocrit 34.8 Mean Corpuscular Volume 93.5 Mean Corpuscular Hemoglobin 31.0 Mean Corpuscular Hemoglobin Concent 33.2 Red Cell Distribution Width 15.6 Platelet Count 369 Mean Platelet Volume 7.9 Neutrophils (%) (Auto) 64.9 Lymphocytes (%) (Auto) 21.9 Monocytes (%) (Auto) 9.0 Eosinophils (%) (Auto) 3.0 Basophils (%) (Auto) 1.2 Neutrophils # (Auto) 5.8 Lymphocytes # (Auto) 2.0 Monocytes # (Auto) 0.8 Eosinophils # (Auto) 0.3 Basophils # (Auto) 0.1 CBC Comment DIFF FINAL Differential Comment Date/Time Source Procedure Growth Status 07/25/17 18:34 Blood Peripheral Aerobic Blood Culture Pending Received 07/25/17 18:34 Blood Peripheral Anaerobic Blood Culture Pending Received Result Diagram: 07/25/17 1930 07/25/17 1834 Caprini VTE Risk Assessment Caprini VTE Risk Assessment: Mod/High Risk (score >= 2) VTE Pharm Contraindication: Caprini Risk Assessment Model Point Value = 1 Point Value = 2 Point Value = 3 Point Value = 5 Age 41-60 Minor surgery BMI > 25 kg/m2 Swollen legs Varicose veins or History of unexplained or recurrent spontaneous Oral contraceptives or hormone replacement Sepsis (< 1 month) Serious lung disease, including pneumonia (< 1 month) Abnormal pulmonary function Acute myocardial infarction Congestive heart failure (< 1 month) History of inflammatory bowel disease Medical patient at bed rest Age 61-74 Arthroscopic surgery Major open surgery (> 45 min) Laparoscopic surgery (> 45 min) Malignancy Confined to bed (> 72 hours) Immobilizing plaster cast Central venous access Age >= 75 History of VTE Family history of VTE Factor V Leiden Prothrombin [id number] Lupus anticoagulant Anticardiolipin antibodies Elevated serum homocysteine Heparin-induced thrombocytopenia Other congenital or acquired thrombophilia Stroke (< 1 month) Elective arthroplasty Hip, pelvis, or leg fracture Acute spinal cord injury (< 1 month) Prophylaxis Regimen Total Risk Factor Score Risk Level Prophylaxis Regimen 0-1 Low Early ambulation 2 Moderate Order ONE of the following: *Sequential Compression Device (SCD) *Heparin 5000 units SQ BID 3-4 Higher Order ONE of the following medications: *Heparin 5000 units SQ TID *Enoxaparin/Lovenox 40 mg SQ daily (WT < 150 kg, CrCl > 30 mL/min) *Enoxaparin/Lovenox 30 mg SQ daily (WT < 150 kg, CrCl > 10-29 mL/min) *Enoxaparin/Lovenox 30 mg SQ BID (WT < 150 kg, CrCl > 30 mL/min) AND/OR *Sequential Compression Device (SCD) 5 or more Highest Order ONE of the following medications: *Heparin 5000 units SQ TID (Preferred with Epidurals) *Enoxaparin/Lovenox 40 mg SQ daily (WT < 150 kg, CrCl > 30 mL/min) *Enoxaparin/Lovenox 30 mg SQ daily (WT < 150 kg, CrCl > 10-29 mL/min) *Enoxaparin/Lovenox 30 mg SQ BID (WT < 150 kg, CrCl > 30 mL/min) AND *Sequential Compression Device (SCD) Assessment and Plan Problem List: (1) Intractable nausea and vomiting ICD Code: R11.2 - Nausea with vomiting, unspecified Status: Acute (2) Chest pain ICD Code: R07.9 - Chest pain, unspecified Status: Acute (3) COPD (chronic obstructive pulmonary disease) ICD Code: J44.9 - Chronic obstructive pulmonary disease, unspecified (4) Chronic anticoagulation ICD Code: Z79.01 - long term care social worker (current) use of anticoagulants (5) HTN (hypertension) ICD Code: I10 - Essential (primary) hypertension Assessment and Plan A/P: 1. Intractable N/V: acute onset of nause/vomiting and occasional diarrhea x2- 3 days, afebrile, no leukocytosis. CT Abd/Pelvis w/ no acute findings, images reviewed by me. S/p Reglan/IVF in ER w/ minimal improvement, continue w/ analgesics/antiemetics, diet as tolerated, IVF. 2. Chest Pain: Trop negative, EKG w/ no acute findings, check serial cardiac enzymes. CXR w/ no scattered subsegmental opacity, images reviewed by me. 3. COPD: Chronic Respiratory Failure w/ Exacerbation. Mild. CTA Pulm negative for PE, mild pulmonary fibrosis, peribronchial thickening and scattered groundglass opacity, infectious/inflammatory, images reviewed by me. Resume home MDI, Solu-Medrol, DuoNeb prn, S/p Rocephin/Zithro in ER for empiric coverage of possible early PNA, will continue w/ antibiotics for now. 4. Chronic Anticoagulation: h/o A-fib and PE on Coumadin, INR subtherapeutic at 1.8, CTA Pulm negative for PE as above, will continue w/ Coumadin, check INR in am. 5. HTN: BP 160's, likely compounded by nausea/vomiting and chest pain, monitor BP, resume home medications. 6. DVT Prophylaxis: On Coumadin 7. Social work for d/c planning as needed. 8. Case discussed w/ ER physician at length. Problem Qualifiers (1) Intractable nausea and vomiting: Qualified Codes: R11.2 - Nausea with vomiting, unspecified (2) Chest pain: Qualified Codes: R07.9 - Chest pain, unspecified Tea Greco MD Jul 25, 2017 21:11
[2017-07-25] MEDS ORDERED: TEMAZEPAM 15 MG CAP PO PRN (21:15)
[2017-07-25] MEDS ORDERED: MORPHINE SULFATE 4 MG/ML INJ IV PUSH PRN ×2 (21:15)
[2017-07-25] MEDS ORDERED: ACETAMINOPHEN 325 MG TAB PO PRN (21:15)
[2017-07-25] MEDS ORDERED: LACTULOSE SYRUP 20 GM/30 ML CUP PO PRN (21:15)
[2017-07-25] MEDS ORDERED: SODIUM CHLORIDE 0.9% FLUSH 10 ML FLUSH IV FLUSH PRN (21:15)
[2017-07-25] MEDS ORDERED: MAGNESIUM HYDROXIDE SUSP 30 ML CUP PO PRN (21:15)
[2017-07-25] MEDS ORDERED: SENNOSIDES 8.6 MG TAB PO PRN (21:15)
[2017-07-25] MEDS ORDERED: BISACODYL 10 MG SUPP RECTAL PRN (21:15)
[2017-07-25] MEDS ORDERED: ONDANSETRON HCL 4 MG/2 ML VIAL IVP PRN (21:15)
[2017-07-25] MEDS ORDERED: methylPREDNISolone SOD SUCC 125 MG/2 ML VIAL IV PUSH ONE (21:30)
[2017-07-25 21:37] VITALS: O2SAT 95
[2017-07-25] MEDS: TOPIRAMATE 25 MG TAB PO SCH (21:46)
[2017-07-25] MEDS: SODIUM CHLOR 0.9% 1000 ML INJ 1,000 ML IV SCH (21:47)
[2017-07-25 22:48] VITALS: BP 144/65; PULSE 84; RESP 16; TEMP 98.4; O2SAT 96
[2017-07-26] VITALS (8 sets, daily range): BP systolic 133–169; BP diastolic 61–79; PULSE 82–107; RESP 16–20; TEMP 98–98.6; O2SAT 70–98
[2017-07-26] MEDS: RESP: ALBUTEROL 2.5 MG/IPRATROPIUM 0.5 MG NEB (PRN) NEB ×5 (00:20→21:51)
--- NOTE | 2017-07-26 05:08 | EKG ---
Date Performed: 07/25/2017 Time Performed: 17:37:48 PTAGE: 86 years EKG: Sinus rhythm POSSIBLE LEFT ATRIAL ENLARGEMENT INFERIOR MYOCARDIAL INFARCTION ABNORMAL ECG PREVIOUS TRACING : 05/05/2017 21.59 DOCTOR: Chilo Chamorro Interpretating Date/Time 07/26/2017 05:04:21
[2017-07-26] MEDS: SODIUM CHLOR 0.9% 1000 ML INJ 1,000 ML IV SCH ×2 (06:14→18:30)
[2017-07-26] MEDS: DOCUSATE SODIUM 50 MG/SENNA 8.6 MG TAB PO SCH ×2 (09:00→21:00)
[2017-07-26] MEDS: SODIUM CHLORIDE 0.9% FLUSH 10 ML FLUSH IV FLUSH SCH ×2 (09:00→21:00)
[2017-07-26] MEDS ORDERED: amLODIPine BESYLATE 5 MG TAB PO SCH (09:00)
[2017-07-26 09:28] LABS: AUTOMATED NEUTROPHIL # 6.4 TH/MM3 (1.8-7.7); BASOPHIL % 0.2 % (0.0-2.0); HEMATOCRIT 37.9 % (35.0-46.0); HEMO FLAGS DIFF FINAL; LYMPH % 13.1 % (9.0-44.0); MEAN CELL VOLUME 94.1 FL (80.0-100.0); MEAN CORPUSCULAR HEMOGLOBIN 30.3 PG (27.0-34.0); MEAN CORPUSCULAR HGB CONC 32.2 % (32.0-36.0); NEUT % 85.7 % (16.0-70.0); PLATELET COUNT 389 TH/MM3 (150-450); RED BLOOD COUNT 4.03 MIL/MM3 (4.00-5.30); WHITE BLOOD COUNT 7.5 TH/MM3 (4.0-11.0)
[2017-07-26 09:45] LABS: INTERNATIONAL NORMALIZED RATIO 1.7 RATIO; PROTHROMBIN TIME - PATIENT 19.8 SEC (9.8-11.6)
[2017-07-26] MEDS: TOPIRAMATE 25 MG TAB PO SCH ×2 (09:47→21:48)
[2017-07-26 09:51] LABS: ALT (GPT) 14 U/L (10-53); ANION GAP 11 MEQ/L (5-15); AST (GOT) 17 U/L (15-37); BICARBONATE 21.2 MEQ/L (21.0-32.0); BLOOD UREA NITROGEN 11 MG/DL (7-18); CHLORIDE 104 MEQ/L (98-107); GLOMERULAR FILTRATION RATE 75 ML/MIN (>89); POTASSIUM 3.5 MEQ/L (3.5-5.1); SODIUM (NA) 136 MEQ/L (136-145)
[2017-07-26 09:59] LABS: ALKALINE PHOSPHATASE 133 U/L (45-117); TOTAL BILIRUBIN ADULT 0.3 MG/DL (0.2-1.0)
--- NOTE | 2017-07-26 10:29 | HHI.PR ---
Subjective Remarks Follow up nausea, vomiting and chest pain. Patient seen and examined, lying in bed comfortably. Denies any further nausea or vomiting overnight. Denies any chest pain or discomfort. Does state she has a dry cough that has occurred over several months. Tolerating PO intake. Getting out of bed with assistance, still with some weakness. Eager to get home. Will discuss with daughter when she arrives to the hospital about plan for discharge. Objective Vitals Vital Signs Date Time Temp Pulse Resp B/P (MAP) Pulse Ox O2 Delivery O2 Flow Rate FiO2 07/26/17 08:53 98.6 95 18 158/76 (103) 96 07/26/17 03:13 98.5 90 16 142/64 (90) 95 07/25/17 22:48 98.4 84 16 144/65 (91) 96 07/25/17 22:26 07/25/17 21:37 95 07/25/17 20:47 85 18 161/73 (102) 95 07/25/17 19:16 86 16 154/73 (100) 95 Room Air 07/25/17 17:45 98.2 86 24 160/70 (100) 94 Room Air 07/25/17 17:45 86 24 94 Room Air 07/25/17 17:35 83 20 160/70 (100) 96 I/O 07/25/17 07/25/17 07/25/17 07/26/17 07/26/17 07/26/17 07:00 15:00 23:00 07:00 15:00 23:00 Intake Total 600 ml Balance 600 ml Intake IV Total 600 ml # Voids 4 Result Diagram: 07/26/1781807/26/[address] Angiography 07/25/171916 Signed Impressions: Service Date/Time: Tuesday, July 25, 2017 19:32 - CONCLUSION: 1. Negative for pulmonary embolus. 2. Mild pulmonary fibrosis. 3. Mild cervical bronchiectasis with peribronchial thickening and scattered groundglass opacity that may or present mild infectious/inflammatory changes. 4. Multiple somewhat peripheral nodular opacities are probably postinflammatory largest measuring about a centimeter in diameter the right upper lobe. David Hernadez MD Abdomen/Pelvis CT 07/25/171916 Signed Impressions: Service Date/Time: Tuesday, July 25, 2017 19:36 - CONCLUSION: 1. No acute findings within the abdomen. Multiple remote pelvic fractures. Minimal intrahepatic biliary ductal dilatation. Colonic diverticulosis. David Hernadez MD Chest X-Ray 07/25/17 9960 Signed Impressions: Service Date/Time: Friday, July 25, 2017 18:56 - CONCLUSION: 1. Scattered subsegmental opacity in the lungs. No effusion. No pneumothorax. David Hernadez MD Objective Remarks GENERAL: Pleasant elderly white female in no acute distress, lying in bed comfortably, axox3. HEENT: PERRLA, EOMI. No scleral icterus or conjunctival pallor. No lid lag or facial droop. CARDIOVASCULAR: Regular rate and rhythm. No obvious murmurs to auscultation. No chest tenderness to palpation. RESPIRATORY: No obvious rhonchi or wheezing. Clear to auscultation. Breath sounds equal bilaterally. GASTROINTESTINAL: Abdomen soft, non-tender, nondistended. BS normal x 4 quadrants. MUSCULOSKELETAL: Extremities without clubbing, cyanosis, or edema. No obvious deformities. NEUROLOGICAL: Awake, alert. No focal neurologic deficits. Moving both upper and lower extremities spontaneously. 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 - afebrile, no leukocytosis. - CT Abd/Pelvis reviewed with no acute findings. - Continue w/ analgesics/antiemetics - Diet as tolerated. Continue IVF for now. Chest Pain, resolved. - Trop negative, EKG w/ no acute findings, check serial cardiac enzymes. - CXR reviewed with no scattered subsegmental opacity. COPD - Chronic Respiratory Failure w/ Exacerbation. - CTA reviewed negative for PE, mild pulmonary fibrosis, peribronchial thickening and scattered ground glass opacity, infectious/inflammatory. If symptoms do not improve will start on low dose steroid and consult pulmonology. Follow. - Continue home Lisa JUDGE-Medrol, DuoNeb prn, S/p Rocephin/Zithro in ER for empiric coverage of possible early PNA, will continue w/ antibiotics for now. Chronic Anticoagulation: h/o A-fib and PE on Coumadin, INR subtherapeutic at 1.7, CTA Pulm negative for PE as above, will continue w/ Coumadin, check INR in am. Hypertension: BP elevated. Will increase Norvasc 5 mg PO daily to BID. Monitor BPs. DVT Prophylaxis: On Coumadin Attending Statement Attestation Patient seen and examined with ALINA Kahn. The exam, history, and the medical decision-making described in the above note were completed with the assistance of the dictating practitioner. I attest that I had a [id number] encounter with the patient on the same day, and personally performed all of the history, exam, or medical decision making. Discussed case with her thoroughly after seeing the patient, reviewed and agreed with the plan. Please see addendum in History, Physical examination. See below for any errata/additional input: Stable, shortness of breath allegedly better but still appears very weak. Last vomiting was yesterday morning. None today. Still coughing. Not in distress Appears very weak Mild rhonchi, no crackles Mildly shaky Keep patient in the hospital, consult physical therapy, continue antibiotics and DuoNeb's. If no improvement tomorrow, start steroids and consult pulmonary. Problem Qualifiers (1) Intractable nausea and vomiting: Qualified Codes: R11.2 - Nausea with vomiting, unspecified (2) Chest pain: Qualified Codes: R07.9 - Chest pain, unspecified Fiordaliza Kraft Jul 26, 2017 10:29 Delroy Garzon MD Jul 26, 2017 16:12
[2017-07-26] MEDS: PREGABALIN 25 MG CAP PO SCH ×2 (10:40→21:48)
[2017-07-26] MEDS: FLUTICASONE 100 MCG/VILANTEROL 25 MCG INHALER INH SCH (10:41)
[2017-07-26] MEDS ORDERED: WARFARIN SOD 5 MG TAB PO SCH (16:00)
[2017-07-26] MEDS ORDERED: cefTRIAXone INJ 1,000 MG in SODIUM CHLORIDE 0.9% INJ 100 ML IV SCH (21:00)
[2017-07-26] MEDS ORDERED: MONTELUKAST SODIUM 10 MG TAB PO SCH (21:00)
[2017-07-26] MEDS ORDERED: AZITHROMYCIN INJ 500 MG in SODIUM CHLOR 0.9% 250 ML INJ 250 ML IV SCH (21:00)
[2017-07-26] MEDS: amLODIPine BESYLATE 5 MG TAB PO SCH (21:48)
[2017-07-27] VITALS: PULSE 79
[2017-07-27] MEDS: RESP: ALBUTEROL 2.5 MG/IPRATROPIUM 0.5 MG NEB (PRN) NEB ×2 (00:20→10:08)
[2017-07-27] MEDS: SODIUM CHLOR 0.9% 1000 ML INJ 1,000 ML IV SCH ×2 (03:05→13:05)
[2017-07-27 03:30] VITALS: BP 138/66; PULSE 89; RESP 16; TEMP 98; O2SAT 96
[2017-07-27 04:00] VITALS: PULSE 85
[2017-07-27 08:16] LABS: INTERNATIONAL NORMALIZED RATIO 1.5 RATIO; PROTHROMBIN TIME - PATIENT 17.2 SEC (9.8-11.6)
[2017-07-27] MEDS ORDERED: predniSONE 50 MG TAB PO ONE (09:00)
--- NOTE | 2017-07-27 09:00 | HHI.FF ---
Face to Face Verification Diagnosis: (1) COPD (chronic obstructive pulmonary disease) (2) Chronic anticoagulation (3) HTN (hypertension) (4) Intractable nausea and vomiting Physical Therapy Order: Evaluate and Treat, Improve ambulation, Strength and gait training Occupational Therapy Order: Evaluate and Treat, Gross motor coordination I have seen patient Janet Blood on 07/27/17. My clinical findings support the need for the requested home health care services because: High risk of falls I certify that my clinical findings support that this patient is homebound because: Unsteady gait/balance Fiordaliza Kraft Jul 27, 2017 09:00
[2017-07-27 09:10] VITALS: BP 130/60; PULSE 84; RESP 16; TEMP 98; O2SAT 96
--- NOTE | 2017-07-27 09:17 | HHI.DCPOC ---
Discharge Care Plan Diagnosis: (1) COPD (chronic obstructive pulmonary disease) (2) Chronic anticoagulation (3) HTN (hypertension) (4) Intractable nausea and vomiting Your Health Problems Are: Shortness of Breath Goals to Promote Your Health * To prevent worsening of your condition and complications * To maintain your health at the optimal level Directions to Meet Your Goals Take your medications as prescribed Follow your dietary instruction Follow activity as directed Keep your appointments as scheduled Take your immunizations and boosters as scheduled If your symptoms worsen call your PCP, if no PCP go to Urgent Care Center or Emergency Room Smoking is Dangerous to Your Health. Avoid second hand smoke Call the 24-hour hour crisis hotline for domestic abuse at Fiordaliza Kraft Jul 27, 2017 09:17
[2017-07-27] MEDS: SODIUM CHLORIDE 0.9% FLUSH 10 ML FLUSH IV FLUSH SCH (09:38)
[2017-07-27] MEDS: amLODIPine BESYLATE 5 MG TAB PO SCH (09:41)
[2017-07-27] MEDS: PREGABALIN 25 MG CAP PO SCH (09:42)
[2017-07-27] MEDS: TOPIRAMATE 25 MG TAB PO SCH (09:42)
[2017-07-27] MEDS: FLUTICASONE 100 MCG/VILANTEROL 25 MCG INHALER INH SCH (09:42)
[2017-07-27] MEDS: DOCUSATE SODIUM 50 MG/SENNA 8.6 MG TAB PO SCH (09:43)
[2017-07-27 10:11] VITALS: O2SAT 97
--- NOTE | 2017-07-27 10:18 | HHI.PR ---
Subjective Remarks Follow up nausea, vomiting and chest pain. Patient seen and examined, lying in bed awake and alert. Denies any new acute complaints overnight. States she slept well. Has been ambulating. PT at bedside today, recommendations for home PT when discharged. Denies any recent fever, chills, cough, chest pain, headache , dizziness, abdominal pain, nausea, vomiting, diarrhea or dysuria. Objective Vitals Vital Signs Date Time Temp Pulse Resp B/P (MAP) Pulse Ox O2 Delivery O2 Flow Rate FiO2 07/27/17 09:10 98.0 84 16 130/60 (83) 96 07/27/17 04:00 85 07/27/17 03:30 98.0 89 16 138/66 (90) 96 07/27/17 00:00 79 07/26/17 23:59 98.3 82 19 133/61 (85) 97 07/26/17 22:48 12 07/26/17 21:53 98 21 07/26/17 20:00 91 07/26/17 19:20 98.0 93 17 134/71 (92) 97 07/26/17 12:10 98.2 107 20 169/79 (109) 96 I/O 07/26/17 07/26/17 07/26/17 07/27/17 07/27/17 07/27/17 07:00 15:00 23:00 07:00 15:00 23:00 # Voids 4 3 3 # Bowel Movements 1 Result Diagram: 07/26/1781807/26/[address] Angiography 07/25/171916 Signed Impressions: Service Date/Time: Tuesday, July 25, 2017 19:32 - CONCLUSION: 1. Negative for pulmonary embolus. 2. Mild pulmonary fibrosis. 3. Mild cervical bronchiectasis with peribronchial thickening and scattered groundglass opacity that may or present mild infectious/inflammatory changes. 4. Multiple somewhat peripheral nodular opacities are probably postinflammatory largest measuring about a centimeter in diameter the right upper lobe. David Hernadez MD Abdomen/Pelvis CT 07/25/171916 Signed Impressions: Service Date/Time: Tuesday, July 25, 2017 19:36 - CONCLUSION: 1. No acute findings within the abdomen. Multiple remote pelvic fractures. Minimal intrahepatic biliary ductal dilatation. Colonic diverticulosis. David Hernadez MD Chest X-Ray 07/25/17 7264 Signed Impressions: Service Date/Time: Tuesday, July 25, 2017 18:56 - CONCLUSION: 1. Scattered subsegmental opacity in the lungs. No effusion. No pneumothorax. David Hernadez MD Objective Remarks GENERAL: Pleasant elderly white female in no acute distress, lying in bed comfortably, axox3. HEENT: PERRLA, EOMI. No scleral icterus or conjunctival pallor. No lid lag or facial droop. CARDIOVASCULAR: Regular rate and rhythm. No obvious murmurs to auscultation. No chest tenderness to palpation. RESPIRATORY: No obvious rhonchi or wheezing. Clear to auscultation. Breath sounds equal bilaterally. GASTROINTESTINAL: Abdomen soft, non-tender, nondistended. BS normal x 4 quadrants. MUSCULOSKELETAL: Extremities without clubbing, cyanosis, or edema. No obvious deformities. NEUROLOGICAL: Awake, alert. No focal neurologic deficits. Moving both upper and lower extremities spontaneously. A/P Problem List: (1) Intractable nausea and vomiting ICD Code: R11.2 - Nausea with vomiting, unspecified Status: Acute (2) Chest pain ICD Code: R07.9 - Chest pain, unspecified Status: Acute (3) COPD (chronic obstructive pulmonary disease) ICD Code: J44.9 - Chronic obstructive pulmonary disease, unspecified (4) Chronic anticoagulation ICD Code: Z79.01 - long term care social worker (current) use of anticoagulants (5) HTN (hypertension) ICD Code: I10 - Essential (primary) hypertension Assessment and Plan Intractable nausea and vomiting, resolved. - afebrile, no leukocytosis. - CT Abd/Pelvis reviewed with no acute findings. - Tolerating diet. Denies any nausea or vomiting. Chest Pain, resolved. - Trop negative, EKG w/ no acute findings, check serial cardiac enzymes. - CXR reviewed with no scattered subsegmental opacity. COPD: Chronic Respiratory Failure w/ Exacerbation. Suspect pulmonary fibrosis. - CTA reviewed negative for PE, mild pulmonary fibrosis, peribronchial thickening and scattered ground glass opacity, infectious/inflammatory. Follows with Dr. Barrios in the outpatient setting upon discharge. - BC negative to date. Continue home MDI, S/p Rocephin/Zithro in ER for empiric coverage of possible early PNA. Will continue Azithromycin for 1 week on discharge. Chronic Anticoagulation: h/o A-fib and PE on Coumadin, INR subtherapeutic at 1.5, CTA Pulm negative for PE as above, will continue with Coumadin upon discharge. Encouraged to follow up with PCP for INR checks. Hypertension: BP controlled. Continue Norvasc 5 mg PO daily to BID on discharge. Discharge Planning Discharge today. Attending Statement Attestation Patient seen and examined with ALINA Kahn. The exam, history, and the medical decision-making described in the above note were completed with the assistance of the dictating practitioner. I attest that I had a [id number] encounter with the patient on the same day, and personally performed all of the history, exam, or medical decision making. Discussed case with her thoroughly after seeing the patient, reviewed and agreed with the plan. Please see addendum in History, Physical examination. See below for any errata/additional input: Per patient, she feels better. She was able to walk around the [place]. Off oxygen. 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 Not in distress On room air Regular rate and rhythm Crackles diffusely specially at both bases and right upper lobe No edema May discharge home today, follow-up with pulmonary in a few days. Might need to be restarted on steroids. Continue antibiotics finish 1 week of treatment. Continue Coumadin, INR subtherapeutic, follow-up with primary care physician for dosing. Problem Qualifiers (1) Intractable nausea and vomiting: Qualified Codes: R11.2 - Nausea with vomiting, unspecified (2) Chest pain: Qualified Codes: R07.9 - Chest pain, unspecified (3) COPD (chronic obstructive pulmonary disease): Qualified Codes: J44.9 - Chronic obstructive pulmonary disease, unspecified Fiordaliza Kraft Jul 27, 2017 10:18 Delroy Garzon MD Jul 27, 2017 15:16
[2017-07-27] MEDS ORDERED: AMLO5 PO (10:25)
[2017-07-27] MEDS ORDERED: AZIT500T2 PO (10:27)
[2017-07-27 12:34] VITALS: BP 129/58; PULSE 96; RESP 18; TEMP 98.2; O2SAT 95
[2017-07-27] MEDS ORDERED: WARFARIN SOD 2.5 MG TAB PO ONE (16:00)
== END 2017-07-27 16:42 | disposition home or self-care (01) ==
LOC: NEPE 17:27 → NEDA 20:50 → NEPGCP 22:27
PROVIDERS: ADMIT Hospitalist; ATTEND Hospitalist
DX: J44.1 Chronic obstructive pulmonary disease with (acute) exacerbation (principal); J96.10 Chronic respiratory failure, unspecified whether with hypoxia or hypercapnia; I48.91 Unspecified atrial fibrillation; I10 Essential (primary) hypertension; I25.10 Atherosclerotic heart disease of native coronary artery without angina pectoris; J47.9 Bronchiectasis, uncomplicated; J84.10 Pulmonary fibrosis, unspecified; K57.30 Diverticulosis of large intestine without perforation or abscess without bleeding; G47.30 Sleep apnea, unspecified; Z79.01 Long term (current) use of anticoagulants; Z79.899 Other long term (current) drug therapy; Z85.828 Personal history of other malignant neoplasm of skin; Z86.711 Personal history of pulmonary embolism
CPT/HCPCS: 71010; 71275; 74177; 80053; 81001; 82550; 83605; 83690; 83735; 83880; 84443; 84484; 85025; 85610; 85730; 87040; 93005; 94640; 94664; 96361; 96365; 96366; 96375; 96376; 97162; 99285; G0378; G8987; G8988; J0456; J0696; J2405; J2765; J2930; J7030; J7040; J7050; Q9967